=== PATIENT | male | born 1950 | race Caucasian/White ===

== ENCOUNTER 2018-05-08 16:32 | Observation (INO) | payer OTHER ==
[2018-05-08] MEDS ORDERED: ASPIRIN 81 MG PO STA (16:59)
--- NOTE | 2018-05-08 17:01 | ED ---
General Adult HPI - General Chief complaint: Chest Pain Stated complaint: chest pain Time Seen by Provider: 05/08/18 16:44 Source: patient, EMS Mode of arrival: EMS Limitations: no limitations - History of Present Illness Initial comments: Dictation was produced using [employer] dictation software. please excuse any grammatical, word or spelling errors. Chief Complaint: 67-year-old male with past medical history of extensive coronary artery disease presents with chest pain. History of Present Illness: Patient's 67-year-old male presents with chest pain. Patient has history of coronary artery disease. As for coronary artery stents. Patient states he had a squeezing chest pressure which occurred while he was playing with his grandson today. Patient states the pain is intermittent. He states the pain does radiate to his right shoulder area. Denies any diaphoresis nausea. Patient took 3 of his sublingual nitroglycerin with mild improvement of his symptoms. Patient still is having symptoms. They called EMS patient was transferred to the emergency department. Patient denies any numbness and paresthesias to extremities. Patient's dye tub operator Dr. Chang. The ROS documented in this emergency department record has been reviewed and confirmed by me. Those systems with pertinent positive or negative responses have been documented in the HPI. All other systems are other negative and/or noncontributory. PHYSICAL EXAM: General Impression: Alert and oriented x3, not in acute distress HEENT: Normocephalic atraumatic, extra-ocular movements intact, pupils equal and reactive to light bilaterally, mucous membranes moist. Cardiovascular: Heart regular rate and rhythm, S1&S2 audible, no murmurs, rubs or gallops Chest: Lungs clear to auscultation bilaterally, no rhonchi, no wheeze, no rales Abdomen: Bowel sounds present, abdomen soft, non-tender, non-distended, no organomegaly Musculoskeletal: Pulses present and equal in all extremities, no peripheral edema Motor: Power 5/5 bilaterally, no focal deficits noted Neurological: CN II-XII grossly intact, no focal motor or sensory deficits noted Skin: Intact with no visualized rashes Psych: Normal affect and mood ED course: 67-year-old male presents with chest pain. He has extensive history of coronary artery disease. Vital signs upon arrival are within acceptable limits. Laboratory evaluation obtained. CBC unremarkable. Coag panel unremarkable. Metabolic panel unremarkable. His glucose is 69. Patient given some by mouth glucose. Cardiac enzymes negative. Chest x-ray is unremarkable. Patient reevaluated with stable medical condition. Patient started on heparin and given Nitropaste. Given patient's extensive cardiac history and concerning HPI we will have patient admitted for unstable angina. Patient also given aspirin. EKG interpretation: Ventricular rate 55, sinus bradycardia, WV interval 180, QS 76, QTC 4:15. No WV prolongation, no QTC prolongation, no ST or T-wave changes noted. EKG compared to 04/20/2015 showing no changes. Overall, this EKG is unremarkable - Related Data Home Medications Medication Instructions Recorded Confirmed Carvedilol [Coreg] 6.25 mg PO BID 08/02/13 05/08/18 Lisinopril [Zestril] 5 mg PO DAILY 08/02/13 05/08/18 Sertraline HCl [Zoloft] 100 mg PO DAILY 08/02/13 05/08/18 Nitroglycerin Sl Tabs [Nitrostat] 0.4 mg SL Q5M PRN 08/18/13 05/08/18 Atorvastatin [Lipitor] 40 mg PO DAILY 05/08/18 05/08/18 HYDROcodone/APAP 7.5-325MG [[place] 1 tab PO BID PRN 05/08/18 05/08/18 7.5-325] Loperamide [Imodium] 4 mg PO BID PRN 05/08/18 05/08/18 Morphine Sulfate [Sara] 30 mg PO Q12H 05/08/18 05/08/18 Pregabalin [Lyrica] 100 mg PO BID 05/08/18 05/08/18 Allergies Allergy/AdvReac Type Severity Reaction Status Date / Time No Known Allergies Allergy Verified 05/08/18 18:18 Review of Systems ROS Statement: Those systems with pertinent positive or pertinent negative responses have been documented in the HPI. ROS Other: All systems not noted in ROS Statement are negative. Past Medical History Past Medical History: Coronary Artery Disease (CAD), GI Bleed, Hyperlipidemia, Hypertension, Myocardial Infarction ([place]), Osteoarthritis (OA), Prostate Disorder Additional Past Medical History / Comment(s): GI BLEED, ANMEMIA, DJD,BULGING DISCS,ARTHRITIS,CHRONIC BACK PAIN, BLOOD CLOTS, HEMMORROID BANDING DONE ON Last Myocardial Infarction Date:: August 2008 History of Any Multi-Drug Resistant Organisms: None Reported Past Surgical History: Heart Catheterization With Stent, Orthopedic Surgery, Tonsillectomy Additional Past Surgical History / Comment(s): 4 stents, elbow surgery, colonoscopy, EGD, hemmoroidectomy Past Anesthesia/Blood Transfusion Reactions: No Reported Reaction Additional Past Anesthesia/Blood Transfusion Reaction / Comment(s): 10 previous blood transfusions, no problems with infusions. Date of Last Stent Placement:: 2009 Past Psychological History: Anxiety Smoking Status: Former smoker Past Alcohol Use History: Rare Past Drug Use History: None Reported - Past Family History Mother History Unknown: Yes General Exam Limitations: no limitations Course Vital Signs 05/08/18 05/08/18 05/08/18 16:44 17:09 19:02 Temperature 97.8 F Pulse Rate 55 L 54 L 76 Pulse Rate [ 55 L Bilateral Convenience Store Clerk ] Respiratory 18 18 18 Rate Blood Pressure 145/86 145/85 144/78 O2 Sat by Pulse 97 100 Oximetry Medical Decision Making - Lab Data Result diagrams: 05/08/18 17:05 05/08/18 17:05 Lab Results 05/08/18 05/08/18 05/08/18 Range/Units 17:05 17:05 17:05 WBC 6.0 (3.8-10.6) k/uL RBC 4.98 (4.30-5.90) m/uL Hgb 12.9 L (13.0-17.5) gm/dL Hct 39.2 (39.0-53.0) % MCV 78.8 L (80.0-100.0) fL MCH 25.9 (25.0-35.0) pg MCHC 32.9 (31.0-37.0) g/dL RDW 17.3 H (11.5-15.5) % Plt Count 187 (150-450) k/uL Neutrophils % 53 % Lymphocytes % 32 % Monocytes % 6 % Eosinophils % 4 % Basophils % 1 % Neutrophils # 3.2 (1.3-7.7) k/uL Lymphocytes # 1.9 (1.0-4.8) k/uL Monocytes # 0.4 (0-1.0) k/uL Eosinophils # 0.3 (0-0.7) k/uL Basophils # 0.0 (0-0.2) k/uL Anisocytosis Slight Microcytosis Slight PT (9.0-12.0) sec INR (<1.2) APTT (22.0-30.0) sec Sodium 140 (137-145) mmol/L Potassium 4.7 (3.5-5.1) mmol/L Chloride 107 (98-107) mmol/L Carbon Dioxide 28 (22-30) mmol/L Anion Gap 5 mmol/L BUN 14 (9-20) mg/dL Creatinine 0.76 (0.66-1.25) mg/dL Est GFR (CKD-EPI)AfAm >90 (>60 ml/min/1.73 sqM) Est GFR (CKD-EPI)NonAf >90 (>60 ml/min/1.73 sqM) Glucose 69 L (74-99) mg/dL Calcium 9.1 (8.4-10.2) mg/dL Magnesium 2.0 (1.6-2.3) mg/dL Total Bilirubin 0.5 (0.2-1.3) mg/dL AST 33 (17-59) U/L ALT 47 (21-72) U/L Alkaline Phosphatase 52 (38-126) U/L Total Creatine Kinase 112 (55-170) U/L CK-MB (CK-2) 4.8 H (0.0-2.4) ng/mL CK-MB (CK-2) Rel Index 4.3 Troponin I <0.012 (0.000-0.034) ng/mL NT-Pro-B Natriuret Pep pg/mL Total Protein 6.4 (6.3-8.2) g/dL Albumin 3.8 (3.5-5.0) g/dL 05/08/18 05/08/18 Range/Units 17:05 17:05 WBC (3.8-10.6) k/uL RBC (4.30-5.90) m/uL Hgb (13.0-17.5) gm/dL Hct (39.0-53.0) % MCV (80.0-100.0) fL MCH (25.0-35.0) pg MCHC (31.0-37.0) g/dL RDW (11.5-15.5) % Plt Count (150-450) k/uL Neutrophils % % Lymphocytes % % Monocytes % % Eosinophils % % Basophils % % Neutrophils # (1.3-7.7) k/uL Lymphocytes # (1.0-4.8) k/uL Monocytes # (0-1.0) k/uL Eosinophils # (0-0.7) k/uL Basophils # (0-0.2) k/uL Anisocytosis Microcytosis PT 10.3 (9.0-12.0) sec INR 1.0 (<1.2) APTT 22.0 (22.0-30.0) sec Sodium (137-145) mmol/L Potassium (3.5-5.1) mmol/L Chloride (98-107) mmol/L Carbon Dioxide (22-30) mmol/L Anion Gap mmol/L BUN (9-20) mg/dL Creatinine (0.66-1.25) mg/dL Est GFR (CKD-EPI)AfAm (>60 ml/min/1.73 sqM) Est GFR (CKD-EPI)NonAf (>60 ml/min/1.73 sqM) Glucose (74-99) mg/dL Calcium (8.4-10.2) mg/dL Magnesium (1.6-2.3) mg/dL Total Bilirubin (0.2-1.3) mg/dL AST (17-59) U/L ALT (21-72) U/L Alkaline Phosphatase (38-126) U/L Total Creatine Kinase (55-170) U/L CK-MB (CK-2) (0.0-2.4) ng/mL CK-MB (CK-2) Rel Index Troponin I (0.000-0.034) ng/mL NT-Pro-B Natriuret Pep 100 pg/mL Total Protein (6.3-8.2) g/dL Albumin (3.5-5.0) g/dL Disposition Clinical Impression: Unstable angina Disposition: ADMITTED IP TO THIS HOSP Condition: Fair Referrals: [facility],Clinic [Primary Care Provider] - 1-2 days Decision Time: 19:15
[2018-05-08] MEDS ORDERED: NITROGLYCERIN OINT 1 INCH/GM PACKET TOPICAL STA ×2 (17:06→17:42)
[2018-05-08 17:17] LABS: Anisocytosis Slight; Basophils % (A) 1 %; Eosinophils # (A) 0.3 k/uL (0-0.7); Eosinophils % (A) 4 %; HCT 39.2 % (39.0-53.0); HGB 12.9 gm/dL (13.0-17.5); Lymphocytes # (A) 1.9 k/uL (1.0-4.8); Lymphocytes % (A) 32 %; MCH 25.9 pg (25.0-35.0); MCHC 32.9 g/dL (31.0-37.0); MCV 78.8 fL (80.0-100.0); Mean Platelet Volume 7.1; Microcytosis Slight; Monocytes # (A) 0.4 k/uL (0-1.0); Monocytes % (A) 6 %; Neutrophils # (A) 3.2 k/uL (1.3-7.7); Neutrophils % (A) 53 %; Platelet Count 187 k/uL (150-450); RBC 4.98 m/uL (4.30-5.90); RDW 17.3 % (11.5-15.5)
[2018-05-08 17:29] LABS: Prothrombin Time 10.3 sec (9.0-12.0)
[2018-05-08 17:31] LABS: ALT 47 U/L (21-72); AST 33 U/L (17-59); Albumin 3.8 g/dL (3.5-5.0); Alkaline Phosphatase 52 U/L (38-126); Anion Gap 5 mmol/L; Blood Urea Nitrogen 14 mg/dL (9-20); Calcium 9.1 mg/dL (8.4-10.2); Carbon Dioxide 28 mmol/L (22-30); Chloride 107 mmol/L (98-107); Glucose 69 mg/dL (74-99); Potassium 4.7 mmol/L (3.5-5.1); Sodium 140 mmol/L (137-145); Total Bilirubin 0.5 mg/dL (0.2-1.3); Total Protein 6.4 g/dL (6.3-8.2)
[2018-05-08 17:36] LABS: Creatine Kinase 112 U/L (55-170)
[2018-05-08] MEDS ORDERED: HEPARIN SODIUM,PORCINE 5,000 UNIT/ML 1 ML VIAL IV PRN (17:42)
[2018-05-08] MEDS ORDERED: HEPARIN SODIUM,PORCINE 5,000 UNIT/ML 1 ML VIAL IV ONE (17:42)
[2018-05-08] MEDS ORDERED: HEPARIN SOD,PORK IN 0.45% NACL 25,000 UNIT in 0.45% NACL 1 250ML.BAG IV SCH (17:45)
[2018-05-08 17:49] LABS: Creatine Kinase MB 4.8 ng/mL (0.0-2.4); Troponin I <0.012 ng/mL (0.000-0.034)
--- NOTE | 2018-05-08 18:18 | XR ---
EXAMINATION TYPE: XR chest 2V DATE OF EXAM: 05/08/2018 COMPARISON: 04/19/2015 HISTORY: Chest pain TECHNIQUE: Frontal and lateral views of the chest are obtained. FINDINGS: There is no heart failure nor confluent pneumonic infiltrate. There are chest leads. There is small amount of fluid in the right major fissure on the lateral view. The bony thorax is intact. IMPRESSION: There is new small right pleural effusion compared to old exam. No heart failure seen.
[2018-05-08] MEDS ORDERED: HYDROcodone/APAP 10-325MG 1 EACH TAB PO ONE (19:06)
[2018-05-08] MEDS ORDERED: NITROGLYCERIN SL TABS 0.4 MG TAB SUBLINGUAL PRN (19:15)
[2018-05-08 21:42] VITALS: BMI 26.1
[2018-05-08] MEDS ORDERED: LOPERAMIDE 2 MG CAP PO PRN (21:48)
[2018-05-08] MEDS: PREGABALIN 100 MG CAP PO SCH (22:01)
[2018-05-08] MEDS: MORPHINE SULFATE ER 30 MG TABLET PO SCH (22:02)
[2018-05-08] MEDS: CARVEDILOL 6.25 MG TAB PO SCH (22:02)
[2018-05-09 00:31] LABS: Creatine Kinase 91 U/L (55-170)
[2018-05-09 00:44] LABS: Creatine Kinase MB 4.4 ng/mL (0.0-2.4); Troponin I <0.012 ng/mL (0.000-0.034)
[2018-05-09 00:51] LABS: Cholesterol 116 mg/dL (<200); HDL Cholesterol 29 mg/dL (40-60); LDL Cholesterol,Calculated 48 mg/dL (0-99); Triglycerides 193 mg/dL (<150)
[2018-05-09 07:58] LABS: Creatine Kinase 78 U/L (55-170)
[2018-05-09 08:10] LABS: Creatine Kinase MB 3.9 ng/mL (0.0-2.4); Troponin I <0.012 ng/mL (0.000-0.034)
[2018-05-09] MEDS: MORPHINE SULFATE ER 30 MG TABLET PO SCH ×2 (08:55→21:58)
[2018-05-09] MEDS: CARVEDILOL 6.25 MG TAB PO SCH ×2 (08:56→17:16)
[2018-05-09] MEDS: ASPIRIN 325 MG TAB PO SCH (08:56)
[2018-05-09] MEDS: PREGABALIN 100 MG CAP PO SCH ×2 (08:56→20:00)
[2018-05-09] MEDS: HYDROcodone/APAP 7.5-325MG 1 EACH TAB PO PRN (11:16)
--- NOTE | 2018-05-09 11:46 | CONS ---
CONSULTATION Mr. Crabtree is a 67-year-old gentleman who is admitted with chest pains. The patient gives a history that he has been having intermittent exertional chest discomfort which comes and goes. The patient says he was playing with his grandson and he had a pain in the substernal area. The pain was persistent. He took about 3 sublingual nitroglycerin with improvement in the symptoms. The patient did not had any nausea, vomiting or sweating. He called the EMS and the patient was admitted. This patient has a prior history of a stent to the obtuse marginal branch in 2008. Patient has been followed by broadloom weaver at the [facility]. He says he did not have any stress test done recently. The patient has been treated medically patient does not smoke. HOME MEDICATIONS: Include Coreg 6.25 mg b.i.d., Zestril 5 mg daily, Zoloft 100 mg daily, Lipitor 40 mg daily. Imodium, Sara 30 mg b.i.d. and Lyrica. PAST MEDICAL HISTORY: Includes a history of coronary artery disease with a prior history of stent, history of a GI bleeding, history of orthopedic surgery, tonsillectomy, colonoscopy, and elbow surgery and hemorrhoid surgery. SOCIAL HISTORY: Patient is a former smoker. PHYSICAL EXAMINATION: At present, reveals a 67-year-old gentleman who does not appear to be in any acute distress. In the emergency room, patient's vital signs were stable. Blood pressure was 144/78 mmHg, heart rate is 78 per minute. Head ENT and neck examinations are negative. Heart: First and second heart sounds are normal. There is no evidence of any murmur. Lungs are clinically clear to auscultation and percussion. Abdomen is soft. Liver and spleen are not enlarged. Bowel sounds are heard. Extremities: Peripheral pulses are 2+. LABORATORY DATA: The laboratory tests done in the emergency room are normal. Creatinine is 0.76. Troponins are negative. EKG shows normal sinus rhythm without any acute ischemic changes. IMPRESSION: Recurrent episodes of chest pain. There is no definite evidence of myocardial infarction. The patient has a T-wave inversions in V4 to V6 which is unchanged from the EKG done in 2016. The patient is advised further evaluation with a cardiac catheterization. He prefers to have arrangements made at the [facility]. We will try to make arrangements for him to be transferred to the [facility]. Thank you for the consultation. RAJNI / KAREN: [id number] /
--- NOTE | 2018-05-09 12:58 | P.HPIM ---
History of Present Illness This is a pleasant 67 years old male with past medical history of coronary artery disease status post cardiac catheter about 3 years ago showing blockage in one of his arteries about 46% as per patient. Other medical problems include GI bleed, hyperlipidemia, hypertension, chronic back pain,. He presents because of chest pain on the left side and central nonradiating of one- day duration. Patient developed this chest pain within 25 minutes he was going to the emergency room he took 3 tablets of nitro with partial relief and on his way to the hospital the ambulance or EMS people give him 4 doses of nitro which took off his chest pain and since yesterday he does not have any more chest pains. At that time also he had some shortness of breath, however that this resolved to now he is breathing normally. No other symptoms. No dizziness or palpitation. No change in urine or bowel habits. No abdominal pain or nausea and vomiting. Patient has been evaluated by Dr. Brenner pet ambassador, who recommended further evaluation by cardiac cath, however the patient he prefers To be arranged at the [facility] where his pet ambassador Dr. Chang there has been followed up with him for the last 5 years. The [facility] and discharge has been contacted at [phone], and they informed me they have no telemetry beds available. And the plan for him is to monitor him Review of Systems CONSTITUTIONAL: No fever, no malaise, no fatigue. HEENT: No recent visual problems or hearing problems. Denied any sore throat. CARDIOVASCULAR: No orthopnea, PND, no palpitations, no syncope. PULMONARY: No shortness of breath, no cough, no hemoptysis. GASTROINTESTINAL: No diarrhea, no nausea, no vomiting, no abdominal pain. Normoactive bowel sounds. NEUROLOGICAL: No headaches, no weakness, no numbness. HEMATOLOGICAL: Denies any bleeding or petechiae. GENITOURINARY: Denies any burning micturition, frequency, or urgency. MUSCULOSKELETAL/RHEUMATOLOGICAL: Denies any joint pain, swelling, or any muscle pain. ENDOCRINE: Denies any polyuria or polydipsia. Past Medical History Past Medical History: Coronary Artery Disease (CAD), GI Bleed, Hyperlipidemia, Hypertension, Myocardial Infarction ([place]), Osteoarthritis (OA), Prostate Disorder Additional Past Medical History / Comment(s): GI BLEED, ANMEMIA, DJD,BULGING DISCS,ARTHRITIS,CHRONIC BACK PAIN, BLOOD CLOTS, HEMMORROID BANDING DONE ON Last Myocardial Infarction Date:: August 2008 History of Any Multi-Drug Resistant Organisms: None Reported Past Surgical History: Heart Catheterization With Stent, Hernia Repair, Orthopedic Surgery, Prostate Surgery, Tonsillectomy Additional Past Surgical History / Comment(s): 4 stents, elbow surgery, colonoscopy, EGD, hemmoroidectomy, large intestine and colon resection with freq diarrhea Past Anesthesia/Blood Transfusion Reactions: No Reported Reaction Additional Past Anesthesia/Blood Transfusion Reaction / Comment(s): 10 previous blood transfusions, no problems with infusions. Date of Last Stent Placement:: 2009 Past Psychological History: Anxiety Smoking Status: Former smoker Past Alcohol Use History: Rare Past Drug Use History: None Reported Additional Drug Use History / Comment(s): Quit in 2008 after [place] - Past Family History Mother History Unknown: Yes Medications and Allergies Home Medications Medication Instructions Recorded Confirmed Type Carvedilol [Coreg] 6.25 mg PO BID 08/02/13 05/08/18 History Lisinopril [Zestril] 5 mg PO DAILY 08/02/13 05/08/18 History Sertraline HCl [Zoloft] 100 mg PO DAILY 08/02/13 05/08/18 History Nitroglycerin Sl Tabs [Nitrostat] 0.4 mg SL Q5M PRN 08/18/13 05/08/18 History Atorvastatin [Lipitor] 40 mg PO DAILY 05/08/18 05/08/18 History HYDROcodone/APAP 7.5-325MG [[place] 1 tab PO BID PRN 05/08/18 05/08/18 History 7.5-325] Loperamide [Imodium] 4 mg PO BID PRN 05/08/18 05/08/18 History Morphine Sulfate [Sara] 30 mg PO Q12H 05/08/18 05/08/18 History Pregabalin [Lyrica] 100 mg PO BID 05/08/18 05/08/18 History Allergies Allergy/AdvReac Type Severity Reaction Status Date / Time No Known Allergies Allergy Verified 05/08/18 18:18 Physical Exam Vitals: Vital Signs Temp Pulse Pulse Pulse Resp BP BP 05/09/18 12:00 97.7 F 53 L 16 144/86 05/09/18 08:00 97.6 F 61 18 124/76 05/09/18 07:44 05/09/18 04:00 97.8 F 55 L 18 114/75 05/09/18 00:00 97.5 F L 60 18 112/54 05/08/18 23:55 15 05/08/18 20:45 15 05/08/18 20:40 51 L 15 144/78 05/08/18 20:00 97.5 F L 52 L 18 151/78 05/08/18 19:30 56 L 12 144/78 05/08/18 19:02 76 18 144/78 05/08/18 19:00 54 L 18 144/78 05/08/18 17:09 54 L 18 145/85 05/08/18 16:44 97.8 F 55 L 55 L 18 145/86 05/08/18 16:39 20 Pulse Ox 05/09/18 12:00 94 L 05/09/18 08:00 95 05/09/18 07:44 94 L 05/09/18 04:00 91 L 05/09/18 00:00 91 L 05/08/18 23:55 05/08/18 20:45 05/08/18 20:40 05/08/18 20:00 93 L 05/08/18 19:30 05/08/18 19:02 100 05/08/18 19:00 05/08/18 17:09 05/08/18 16:44 97 05/08/18 16:39 Intake and Output 05/08/18 05/09/18 05/09/18 22:59 06:59 14:59 Other: Voiding Method Toilet Toilet Toilet # Voids 2 Weight 78.018 kg GENERAL: The patient is alert and oriented x3, not in any acute distress. Well developed, well nourished. HEENT: Pupils are round and equally reacting to light. EOMI. No scleral icterus. No conjunctival pallor. Normocephalic, atraumatic. No pharyngeal erythema. No thyromegaly. CARDIOVASCULAR: S1 and S2 present. No murmurs, rubs, or gallops. PULMONARY: Chest is clear to auscultation, no wheezing or crackles. ABDOMEN: Soft, nontender, nondistended, normoactive bowel sounds. No palpable organomegaly. MUSCULOSKELETAL: No joint swelling or deformity. EXTREMITIES: No cyanosis, clubbing, or pedal edema. NEUROLOGICAL: Gross neurological examination did not reveal any focal deficits. SKIN: No rashes. Results CBC & Chem 7: 05/08/18 17:05 05/08/18 17:05 Labs: Abnormal Lab Results - Last 24 Hours (Table) 05/08/18 05/08/18 05/08/18 Range/Units 17:05 17:05 17:05 Hgb 12.9 L (13.0-17.5) gm/dL MCV 78.8 L (80.0-100.0) fL RDW 17.3 H (11.5-15.5) % APTT (22.0-30.0) sec Glucose 69 L (74-99) mg/dL CK-MB (CK-2) 4.8 H (0.0-2.4) ng/mL Triglycerides (<150) mg/dL HDL Cholesterol (40-60) mg/dL 05/08/18 05/08/18 05/08/18 Range/Units 17:05 23:57 23:57 Hgb (13.0-17.5) gm/dL MCV (80.0-100.0) fL RDW (11.5-15.5) % APTT 48.9 H (22.0-30.0) sec Glucose (74-99) mg/dL CK-MB (CK-2) 4.4 H (0.0-2.4) ng/mL Triglycerides 193 H (<150) mg/dL HDL Cholesterol 29 L (40-60) mg/dL 05/09/18 05/09/18 Range/Units 06:45 06:45 Hgb (13.0-17.5) gm/dL MCV (80.0-100.0) fL RDW (11.5-15.5) % APTT 43.5 H (22.0-30.0) sec Glucose (74-99) mg/dL CK-MB (CK-2) 3.9 H (0.0-2.4) ng/mL Triglycerides (<150) mg/dL HDL Cholesterol (40-60) mg/dL Thrombosis Risk Factor Assmnt - Choose All That Apply Each Risk Factor Represents 2 Points: Age 61-74 years Thrombosis Risk Factor Assessment Total Risk Factor Score: 2 Thrombosis Risk Factor Assessment Level: Low Risk Assessment and Plan Assessment: Chest pain, rule out cardiac causes History of GI bleed Hyperlipidemia History of essential hypertension History of chronic back pain Plan: This is a pleasant 67 years old male who presents because of the chest pain. He is been evaluated by pet ambassador recommended further distance with cardiac catheterization. Patient prefers to continue [facility]. Labs and medication were reviewed.. Continue same treatment. Continue with symptomatic treatment. Resume home medication. Monitor lytes and vitals. DVT and GI prophylaxis. Further recommendations of the clinical course of the patient DVT prophylaxis: Subcutaneous heparin GI Prophylaxis: Pepcid Prognosis is guarded
[2018-05-09] MEDS: HEPARIN SODIUM,PORCINE 5,000 UNIT/ML 1 ML VIAL SQ SCH ×2 (17:08→20:00)
[2018-05-09] MEDS: FAMOTIDINE 20 MG/2 ML VIAL IV SCH (20:00)
[2018-05-10 03:53] VITALS: TEMP 97.4
[2018-05-10] MEDS: HYDROcodone/APAP 7.5-325MG 1 EACH TAB PO PRN (06:45)
[2018-05-10] MEDS: PREGABALIN 100 MG CAP PO SCH (07:58)
[2018-05-10] MEDS: MORPHINE SULFATE ER 30 MG TABLET PO SCH (07:59)
[2018-05-10] MEDS: FAMOTIDINE 20 MG/2 ML VIAL IV SCH (07:59)
[2018-05-10] MEDS: HEPARIN SODIUM,PORCINE 5,000 UNIT/ML 1 ML VIAL SQ SCH (07:59)
[2018-05-10] MEDS: CARVEDILOL 6.25 MG TAB PO SCH (07:59)
[2018-05-10] MEDS: ASPIRIN 325 MG TAB PO SCH (07:59)
[2018-05-10 08:15] VITALS: RESP 18
[2018-05-10] MEDS ORDERED: ATORVASTATIN 40 MG TAB PO SCH (09:00)
[2018-05-10] MEDS ORDERED: LISINOPRIL 5 MG TAB PO SCH (09:00)
[2018-05-10] MEDS ORDERED: SERTRALINE 100 MG TAB PO SCH (09:00)
[2018-05-10 12:26] VITALS: BP 119/74; PULSE 58
--- NOTE | 2018-05-10 14:37 | ECHOF ---
Referral Reason: MEASUREMENTS -------- HEIGHT: 172.7 cm WEIGHT: 78.0 kg BP: IVSd: 1.1 cm (0.6 - 1.1) LVIDd: 5.5 cm (3.9 - 5.3) LVPWd: 1.1 cm (0.6 - 1.1) EDV(Teich): 150 ml IVSs: 1.5 cm LVIDs: 3.7 cm LVPWs: 1.3 cm ESV(Teich): 58 ml EF(Teich): 62 % %FS: 33 % SV(Teich): 92 ml RVIDd: 3.1 cm (< 3.3) LALs A4C: 4.9 cm LAAs A4C: 12.9 cm LAESV A-L A4C: 29 ml LAESV MOD A4C: 28 ml LALs A2C: 4.8 cm LAAs A2C: 16.4 cm LAESV A-L A2C: 48 ml LAESV MOD A2C: 46 ml LAESV(A-L): 38 ml LAESV Index (A-L): 19.60 ml/m Ao Diam: 3.4 cm (2.0 - 3.7) LA Diam: 2.9 cm (2.7 - 3.8) AV Cusp: 1.6 cm (1.5 - 2.6) MV E Shreyas: 0.64 m/s MV DecT: 349 ms MV Dec [place]: 1.8 m/s MV A Shreyas: 0.98 m/s MV E/A Ratio: 0.66 AV Vmax: 1.26 m/s AV maxP.39 mmHg TR Vmax: 2.62 m/s TR maxP.46 mmHg RAP: 5.00 mmHg RVSP: 32.46 mmHg MV EF SLOPE: 93.33 mm/s (70 - 150) MV EXCURSION: 1.79 cm (> 18.000) FINDINGS -------- Resting bradycardia (HR<60bpm). This was a technically adequate study. The left ventricular size is normal. There is borderline concentric left ventricular hypertrophy. There is normal global left ventricular contractility. Overall left ventricular systolic function is low-normal with, an EF between 50 - 55 %. The right ventricle is normal in size and function. Normal LA size by volume 22+/-6 ml/m2. The right atrium is normal in size. Aortic valve is trileaflet and is mildly thickened. There is no evidence of aortic regurgitation. There is no evidence of aortic stenosis. Mild mitral annular calcification present. There is trace to mild mitral regurgitation. Trace tricuspid regurgitation present. Right ventricular systolic pressure is normal at < 35 mmHg. There is no evidence of pulmonary hypertension. Trace/mild (physiologic) pulmonic regurgitation. The aortic root size is normal. Normal inferior vena cava with normal inspiratory collapse consistent with estimated right atrial pre ssure of 5 mmHg. There is no pericardial effusion. CONCLUSIONS -------- 1. Resting bradycardia (HR<60bpm). 2. This was a technically adequate study. 3. The left ventricular size is normal. 4. There is borderline concentric left ventricular hypertrophy. 5. There is normal global left ventricular contractility. 6. Overall left ventricular systolic function is low-normal with, an EF between 50 - 55 %. 7. Normal LA size by volume 22+/-6 ml/m2. 8. Aortic valve is trileaflet and is mildly thickened. 9. Mild mitral annular calcification present. 10. There is trace to mild mitral regurgitation. 11. Trace tricuspid regurgitation present. 12. Right ventricular systolic pressure is normal at < 35 mmHg. 13. There is no evidence of pulmonary hypertension. 14. Trace/mild (physiologic) pulmonic regurgitation. 15. The aortic root size is normal. 16. There is no pericardial effusion. QUALITY CONTROL CHEMIST: Shane Nesbitt RDCS
[2018-05-10] MEDS ORDERED: FAMOTIDINE 20 MG TAB PO SCH (21:00)
--- NOTE | 2018-05-15 14:59 | P.DS ---
Providers Date of admission: 05/08/18 19:15 Attending physician: Milady Valle Consults: 05/08/18 19:15 Consult Physician Urgent Consulting Provider: Paula Renteria Consult Reason/Comments: unstable angina Do you want consulting provider notified?: Yes Primary care physician: [facility] Course: This is a pleasant 67 years old male with past medical history of coronary artery disease status post cardiac catheter about 3 years ago showing blockage in one of his arteries about 46% as per patient. Other medical problems include GI bleed, hyperlipidemia, hypertension, chronic back pain,. He presents because of chest pain on the left side and central nonradiating of one- day duration. Patient developed this chest pain within 25 minutes he was going to the emergency room he took 3 tablets of nitro with partial relief and on his way to the hospital the ambulance or EMS people give him 4 doses of nitro which took off his chest pain and since yesterday he does not have any more chest pains. At that time also he had some shortness of breath, however that this resolved to now he is breathing normally. No other symptoms. No dizziness or palpitation. No change in urine or bowel habits. No abdominal pain or nausea and vomiting. Patient has been evaluated by Dr. Brenner treating plant pumper, who recommended further evaluation by cardiac cath, however the patient he prefers To be arranged at the [facility] where his treating plant pumper Dr. Chang there has been followed up with him for the last 5 years. The [facility] and discharge has been contacted at [phone], and they informed me they have no telemetry beds available. And the plan for him is to monitor him next day treating plant pumper cleared the pt for discharge, pt himself did not want to be transferred but rather he wanted to be discharged as it was weekend and he told me he will go to see his pcp in one or two day who will refer him to his treating plant pumper at the [facility] on the day of discharge pt remains with no chest pain , no dyspnea , no abd pain or n/v, no change in urine or bowel habits pt told me he is back to his baseline treating plant pumper cleared pt for discharge Pt was instructed about the problems and management plan and Pt verbalized understanding and acceptance Pt is found stable and can be discharged to the community but needs follow up as outpt. pt agrees with appointments and their timing and stated he will follow up Discharge exam Gen.: Patient alert awake and oriented X 3, NOT IN DISTRESS CVS: s1-s2, RRR, no murmur CHEST:bilateral CTA, no wheezing or crepitation Abdomen: Soft, no tenderness, no distention, positive bowel sounds Extremities: No leg edema or induration time spent : more than 35 min Patient Condition at Discharge: Fair Plan - Discharge Summary New Discharge Prescriptions: New Aspirin 325 mg PO DAILY #30 tab Famotidine [Pepcid] 20 mg PO BID #14 tablet Continue Carvedilol [Coreg] 6.25 mg PO BID Lisinopril [Zestril] 5 mg PO DAILY Sertraline HCl [Zoloft] 100 mg PO DAILY Nitroglycerin Sl Tabs [Nitrostat] 0.4 mg SL Q5M PRN PRN Reason: Chest Pain Pregabalin [Lyrica] 100 mg PO BID Morphine Sulfate [Sara] 30 mg PO Q12H Loperamide [Imodium] 4 mg PO BID PRN PRN Reason: Constipation HYDROcodone/APAP 7.5-325MG [[place] 7.5-325] 1 tab PO BID PRN PRN Reason: Breakthrough Pain Atorvastatin [Lipitor] 40 mg PO DAILY Discharge Medication List Carvedilol [Coreg] 6.25 mg PO BID 08/02/13 [History] Lisinopril [Zestril] 5 mg PO DAILY 08/02/13 [History] Sertraline HCl [Zoloft] 100 mg PO DAILY 08/02/13 [History] Nitroglycerin Sl Tabs [Nitrostat] 0.4 mg SL Q5M PRN 08/18/13 [History] Atorvastatin [Lipitor] 40 mg PO DAILY 05/08/18 [History] HYDROcodone/APAP 7.5-325MG [[place] 7.5-325] 1 tab PO BID PRN 05/08/18 [History] Loperamide [Imodium] 4 mg PO BID PRN 05/08/18 [History] Morphine Sulfate [Sara] 30 mg PO Q12H 05/08/18 [History] Pregabalin [Lyrica] 100 mg PO BID 05/08/18 [History] Aspirin 325 mg PO DAILY #30 tab 05/10/18 [Rx] Famotidine [Pepcid] 20 mg PO BID #14 tablet 05/10/18 [Rx] Follow up Appointment(s)/Referral(s): , your treating plant pumper [Other] - 1-2 Days [facility],Clinic [Primary Care Provider] - 1-2 days (with your PALandon ) Activity/Diet/Wound Care/Special Instructions: cardiac diet activity is limited till you see your doctor Discharge Disposition: HOME SELF-CARE
== END 2018-05-10 13:05 | disposition home or self-care (01) ==
LOC: EC 16:32 → SUPCPDRO 16:32 → 1SOBS 19:15
PROVIDERS: ADMIT Hospitalist; ATTEND Hospitalist
DX: R07.89 Other chest pain (principal); R06.02 Shortness of breath; I25.10 Atherosclerotic heart disease of native coronary artery without angina pectoris; E78.5 Hyperlipidemia, unspecified; I10 Essential (primary) hypertension; G89.29 Other chronic pain; M54.9 Dorsalgia, unspecified; N42.9 Disorder of prostate, unspecified; M19.90 Unspecified osteoarthritis, unspecified site; F41.9 Anxiety disorder, unspecified; Z79.891 Long term (current) use of opiate analgesic; Z79.899 Other long term (current) drug therapy; I25.2 Old myocardial infarction; Z87.19 Personal history of other diseases of the digestive system; Z87.891 Personal history of nicotine dependence; Z95.5 Presence of coronary angioplasty implant and graft
CPT/HCPCS: 96366 ×3; 96372 ×2; 96375; 96376 ×2; 96365; 99285; 36415; 94760; 93005; 93306; 83880; 80061; 80053; 82550 ×2; 82553 ×2; 83735; 84484 ×2; 85025; 85610; 85730 ×2; 71046; G0378 ×3; J1644 ×4

== ENCOUNTER 2018-08-18 09:25 | Observation (INO) | payer OTHER ==
[2018-08-18] MEDS ORDERED: SODIUM CHLORIDE 0.9% 500 ML 500 ML IV STA (10:27)
--- NOTE | 2018-08-18 10:45 | ED ---
General Adult HPI - General Chief complaint: Arrhythmia/Palpitations Stated complaint: Not feeling good Time Seen by Provider: 08/18/18 09:38 Source: patient Mode of arrival: ambulatory Limitations: no limitations - History of Present Illness Initial comments: Dictation was produced using [employer] dictation software. please excuse any gr ammatical, word or spelling errors. Chief Complaint: 67-year-old male presents with dizziness and concerns of abnormal blood pressure and heart rate. History of Present Illness: Patient is 67-year-old male he woke up at approximately 2:30 this morning. He states that since waking up he's been feeling dizzy and feeling tired more than usual. Patient wakes up at 3:30 AM frequently to help with his grandchildren. Patient states that spent felt lightheaded worse with moving around. Denies any sensation of room spinning. Patient's been eating and drinking normally. No nausea vomiting diarrhea. Patient has no pain complaints at this time. Patient is on multiple medications for cardiac disease. Patient has myocardial infarction the past. Denies any recent medication changes. The ROS documented in this emergency department record has been reviewed and confirmed by me. Those systems with pertinent positive or negative responses have been documented in the HPI. All other systems are other negative and/or noncontributory. PHYSICAL EXAM: General Impression: Alert and oriented x3, not in acute distress HEENT: Normocephalic atraumatic, extra-ocular movements intact, pupils equal and reactive to light bilaterally, mucous membranes moist. Cardiovascular: Heart regular rate and rhythm, S1&S2 audible, no murmurs, rubs or gallops Chest: Lungs clear to auscultation bilaterally, no rhonchi, no wheeze, no rales Abdomen: Bowel sounds present, abdomen soft, non-tender, non-distended, no organomegaly Musculoskeletal: Pulses present and equal in all extremities, no peripheral edema Motor: no focal deficits noted Neurological: CN II-XII grossly intact, no focal motor or sensory deficits noted Skin: Intact with no visualized rashes Psych: Normal affect and mood ED course: 67-year-old male with a chief complaint of feelings of unwell and dizziness. Vital signs upon arrival are within acceptable limits. Medications reviewed Laboratory evaluation obtained. CBC, coag panel unremarkable. Metabolic panel is negative. Cardiac enzymes negative. Urinalysis negative. Chest x-ray is nonacute. Patient continued to be bradycardic with a heart rate in the 40s. He however has remained no intensive. Patient's clinical presentation consistent with symptomatic bradycardia. This likely secondary to beta davin. Patient be admitted with cardiology consultation for symptomatic bradycardia. Beta blockers cell at this time. EKG interpretation: Ventricular rate 44, sinus bradycardia, TX interval 150, care is 80, QTC 418. No TX prolongation, no QTC prolongation, no ST or T-wave changes noted. EKG compared to 05/08/2018 showing no changes. Overall, this EKG is unremarkable - Related Data Home Medications Medication Instructions Recorded Confirmed Carvedilol [Coreg] 6.25 mg PO BID 08/02/13 08/18/18 Lisinopril [Zestril] 5 mg PO DAILY 08/02/13 08/18/18 Nitroglycerin Sl Tabs [Nitrostat] 0.4 mg SL Q5M PRN 08/18/13 08/18/18 Atorvastatin [Lipitor] 40 mg PO DAILY 05/08/18 08/18/18 Morphine Sulfate [Sara] 30 mg PO Q12H 05/08/18 08/18/18 Pregabalin [Lyrica] 100 mg PO BID 05/08/18 08/18/18 Albuterol Inhaler [Ventolin Hfa 1 puff INHALATION RT-QID PRN 08/18/18 08/18/18 Inhaler] Amitriptyline HCl [Elavil] 25 mg PO HS 08/18/18 08/18/18 Aspirin [[place] Aspirin EC] 81 mg PO DAILY 08/18/18 08/18/18 Baclofen [Lioresal] 20 mg PO BID PRN 08/18/18 08/18/18 Diphenox-Atrop 2.5-0.025 mg 2 tab PO BID PRN 08/18/18 08/18/18 [Lomotil] Docusate [Colace] 100 mg PO BID 08/18/18 08/18/18 HYDROcodone/APAP 10-325MG [[place] 2 tab PO QID PRN 08/18/18 08/18/18 10-325] Loperamide [Imodium] 4 mg PO BID PRN 08/18/18 08/18/18 Naloxone HCl [Narcan] 4 mg INHALATION DAILY PRN 08/18/18 08/18/18 Sertraline [Zoloft] 150 mg PO DAILY 08/18/18 08/18/18 Allergies Allergy/AdvReac Type Severity Reaction Status Date / Time fentanyl Allergy Rash/Hives Verified 08/18/18 10:14 isosorbide Allergy Unknown Verified 08/18/18 10:14 ranolazine Allergy Unknown Verified 08/18/18 10:14 Review of Systems ROS Statement: Those systems with pertinent positive or pertinent negative responses have been documented in the HPI. ROS Other: All systems not noted in ROS Statement are negative. Past Medical History Past Medical History: Coronary Artery Disease (CAD), GI Bleed, Hyperlipidemia, Hypertension, Myocardial Infarction ([place]), Osteoarthritis (OA), Prostate Disorder Additional Past Medical History / Comment(s): GI BLEED, [place], DJD,BULGING DISCS,ARTHRITIS,CHRONIC BACK PAIN, BLOOD CLOTS, HEMMORROID BANDING DONE ON 09/02/13 Last Myocardial Infarction Date:: August 2008 History of Any Multi-Drug Resistant Organisms: None Reported Past Surgical History: Heart Catheterization With Stent, Hernia Repair, Orthopedic Surgery, Prostate Surgery, Tonsillectomy Additional Past Surgical History / Comment(s): 4 stents, elbow surgery, colonoscopy, EGD, hemmoroidectomy, large intestine and colon resection with freq diarrhea Past Anesthesia/Blood Transfusion Reactions: No Reported Reaction Additional Past Anesthesia/Blood Transfusion Reaction / Comment(s): 10 previous blood transfusions, no problems with infusions. Date of Last Stent Placement:: 2009 Past Psychological History: Anxiety Smoking Status: Former smoker Past Alcohol Use History: Rare Past Drug Use History: None Reported - Past Family History Mother History Unknown: Yes General Exam Limitations: no limitations Course Vital Signs 08/18/18 08/18/18 08/18/18 09:33 10:27 11:55 Temperature 97.5 F L 98.2 F Pulse Rate 52 L 45 L Pulse Rate [ 42 L Phototypesetting Equipment Monitor ] Respiratory 16 18 Rate Blood Pressure 165/89 144/85 O2 Sat by Pulse 95 95 Oximetry Medical Decision Making - Lab Data Result diagrams: 08/18/18 10:40 08/18/18 10:40 Lab Results 08/18/18 08/18/18 08/18/18 Range/Units 10:40 10:40 10:40 WBC 5.4 (3.8-10.6) k/uL RBC 4.96 (4.30-5.90) m/uL Hgb 13.5 (13.0-17.5) gm/dL Hct 40.8 (39.0-53.0) % MCV 82.3 (80.0-100.0) fL MCH 27.2 (25.0-35.0) pg MCHC 33.1 (31.0-37.0) g/dL RDW 16.1 H (11.5-15.5) % Plt Count 189 (150-450) k/uL Neutrophils % 55 % Lymphocytes % 30 % Monocytes % 6 % Eosinophils % 4 % Basophils % 1 % Neutrophils # 3.0 (1.3-7.7) k/uL Lymphocytes # 1.6 (1.0-4.8) k/uL Monocytes # 0.3 (0-1.0) k/uL Eosinophils # 0.2 (0-0.7) k/uL Basophils # 0.1 (0-0.2) k/uL Anisocytosis Slight PT 10.5 (9.0-12.0) sec INR 1.0 (<1.2) APTT 21.6 L (22.0-30.0) sec Sodium 140 (137-145) mmol/L Potassium 4.7 (3.5-5.1) mmol/L Chloride 110 H (98-107) mmol/L Carbon Dioxide 25 (22-30) mmol/L Anion Gap 5 mmol/L BUN 13 (9-20) mg/dL Creatinine 0.67 (0.66-1.25) mg/dL Est GFR (CKD-EPI)AfAm >90 (>60 ml/min/1.73 sqM) Est GFR (CKD-EPI)NonAf >90 (>60 ml/min/1.73 sqM) Glucose 97 (74-99) mg/dL Calcium 9.2 (8.4-10.2) mg/dL Magnesium 2.0 (1.6-2.3) mg/dL Total Bilirubin 0.4 (0.2-1.3) mg/dL AST 30 (17-59) U/L ALT 27 (21-72) U/L Alkaline Phosphatase 56 (38-126) U/L Troponin I (0.000-0.034) ng/mL Total Protein 6.4 (6.3-8.2) g/dL Albumin 4.0 (3.5-5.0) g/dL Urine Color Urine Appearance (Clear) Urine pH (5.0-8.0) Ur Specific [place] (1.001-1.035) Urine Protein (Negative) Urine Glucose (UA) (Negative) Urine Ketones (Negative) Urine Blood (Negative) Urine Nitrite (Negative) Urine Bilirubin (Negative) Urine Urobilinogen (<2.0) mg/dL Ur Leukocyte Esterase (Negative) 08/18/18 08/18/18 Range/Units 10:40 11:50 WBC (3.8-10.6) k/uL RBC (4.30-5.90) m/uL Hgb (13.0-17.5) gm/dL Hct (39.0-53.0) % MCV (80.0-100.0) fL MCH (25.0-35.0) pg MCHC (31.0-37.0) g/dL RDW (11.5-15.5) % Plt Count (150-450) k/uL Neutrophils % % Lymphocytes % % Monocytes % % Eosinophils % % Basophils % % Neutrophils # (1.3-7.7) k/uL Lymphocytes # (1.0-4.8) k/uL Monocytes # (0-1.0) k/uL Eosinophils # (0-0.7) k/uL Basophils # (0-0.2) k/uL Anisocytosis PT (9.0-12.0) sec INR (<1.2) APTT (22.0-30.0) sec Sodium (137-145) mmol/L Potassium (3.5-5.1) mmol/L Chloride (98-107) mmol/L Carbon Dioxide (22-30) mmol/L Anion Gap mmol/L BUN (9-20) mg/dL Creatinine (0.66-1.25) mg/dL Est GFR (CKD-EPI)AfAm (>60 ml/min/1.73 sqM) Est GFR (CKD-EPI)NonAf (>60 ml/min/1.73 sqM) Glucose (74-99) mg/dL Calcium (8.4-10.2) mg/dL Magnesium (1.6-2.3) mg/dL Total Bilirubin (0.2-1.3) mg/dL AST (17-59) U/L ALT (21-72) U/L Alkaline Phosphatase (38-126) U/L Troponin I <0.012 (0.000-0.034) ng/mL Total Protein (6.3-8.2) g/dL Albumin (3.5-5.0) g/dL Urine Color Light Yellow Urine Appearance Clear (Clear) Urine pH 6.0 (5.0-8.0) Ur Specific [place] 1.008 (1.001-1.035) Urine Protein Negative (Negative) Urine Glucose (UA) Negative (Negative) Urine Ketones Negative (Negative) Urine Blood Negative (Negative) Urine Nitrite Negative (Negative) Urine Bilirubin Negative (Negative) Urine Urobilinogen <2.0 (<2.0) mg/dL Ur Leukocyte Esterase Negative (Negative) Disposition Clinical Impression: Bradycardia Disposition: ADMITTED IP TO THIS HOSP Condition: Fair Referrals: [facility],Clinic [Primary Care Provider] - 1-2 days Decision Time: 13:08
--- NOTE | 2018-08-18 11:00 | XR ---
EXAMINATION TYPE: XR chest 2V DATE OF EXAM: 08/18/2018 COMPARISON: Chest x-ray May 08, 2018. HISTORY: History of hypertension, heart attack with stent presents with dysrhythmia and palpitations. TECHNIQUE: Frontal and lateral views of the chest are obtained. FINDINGS: There is some chronic parenchymal change without suspicious focal air space opacity, pleur al effusion, or pneumothorax seen. The cardiac silhouette size is stable and within normal limits. Numerous coils from ventral wall hernia repair surgery are partially imaged in the overlying upper a bdomen anteriorly. The osseous structures are intact. Overlying EKG leads are redemonstrated. IMPRESSION: No acute cardiopulmonary process currently.
[2018-08-18 11:11] LABS: Prothrombin Time 10.5 sec (9.0-12.0)
[2018-08-18 11:19] LABS: ALT 27 U/L (21-72); AST 30 U/L (17-59); Alkaline Phosphatase 56 U/L (38-126); Anion Gap 5 mmol/L; Blood Urea Nitrogen 13 mg/dL (9-20); Calcium 9.2 mg/dL (8.4-10.2); Carbon Dioxide 25 mmol/L (22-30); Chloride 110 mmol/L (98-107); Glucose 97 mg/dL (74-99); Potassium 4.7 mmol/L (3.5-5.1); Sodium 140 mmol/L (137-145); Total Bilirubin 0.4 mg/dL (0.2-1.3); Total Protein 6.4 g/dL (6.3-8.2)
[2018-08-18 11:26] LABS: Partial Thromboplastin Time 21.6 sec (22.0-30.0)
[2018-08-18 11:55] LABS: Anisocytosis Slight; Basophils # (A) 0.1 k/uL (0-0.2); Basophils % (A) 1 %; Eosinophils # (A) 0.2 k/uL (0-0.7); Eosinophils % (A) 4 %; HCT 40.8 % (39.0-53.0); HGB 13.5 gm/dL (13.0-17.5); Lymphocytes # (A) 1.6 k/uL (1.0-4.8); Lymphocytes % (A) 30 %; MCH 27.2 pg (25.0-35.0); MCHC 33.1 g/dL (31.0-37.0); MCV 82.3 fL (80.0-100.0); Monocytes # (A) 0.3 k/uL (0-1.0); Monocytes % (A) 6 %; Neutrophils % (A) 55 %; Platelet Count 189 k/uL (150-450); RBC 4.96 m/uL (4.30-5.90); RDW 16.1 % (11.5-15.5); WBC 5.4 k/uL (3.8-10.6)
[2018-08-18 12:12] LABS: Appearance,Urine Clear (Clear); Bilirubin,Urine Negative (Negative); Blood,Urine Negative (Negative); Color,Urine Light Yellow; Glucose,Urine (UA) Negative (Negative); Ketones,Urine Negative (Negative); Leukocyte Esterase,Urine Negative (Negative); Nitrite,Urine Negative (Negative); Protein,Urine Negative (Negative); Specific Gravity,Urine 1.008 (1.001-1.035); Urobilinogen,Urine <2.0 mg/dL (<2.0)
[2018-08-18] MEDS ORDERED: NALOXONE 0.4 MG/ML 1 ML VIAL IV PRN (13:02)
[2018-08-18] MEDS ORDERED: ALBUTEROL NEBULIZED 2.5 MG/3 ML INHALATION PRN (13:06)
[2018-08-18] MEDS ORDERED: ACETAMINOPHEN TAB 325 MG TAB PO PRN (14:37)
[2018-08-18] MEDS: SODIUM CHLORIDE 0.9% 1,000 ML IV SCH (14:57)
[2018-08-18] MEDS ORDERED: NITROGLYCERIN SL TABS 0.4 MG TAB SUBLINGUAL PRN (15:29)
[2018-08-18] MEDS ORDERED: BACLOFEN 10 MG TAB PO PRN (15:29)
[2018-08-18] MEDS ORDERED: DIPHENOX-ATROP 2.5-0.025 MG 1 EACH TAB PO PRN (15:29)
[2018-08-18] MEDS: MORPHINE SULFATE ER 30 MG TABLET PO SCH (15:41)
[2018-08-18] MEDS: DOCUSATE 100 MG CAP PO SCH (19:44)
[2018-08-18] MEDS: PREGABALIN 100 MG CAP PO SCH (19:46)
[2018-08-18] MEDS: AMITRIPTYLINE HCL 25 MG TAB PO SCH (19:46)
[2018-08-18] MEDS: HYDROcodone/APAP 10-325MG 1 EACH TAB PO PRN (22:23)
--- NOTE | 2018-08-18 22:34 | P.HPIM ---
History of Present Illness H&P Date: 08/18/18 Chief Complaint: Dizziness Patient is a 67-year-old male with a known history of coronary artery disease with stents 4, hypertension, hyperlipidemia, history of GI bleed, chronic back pain and degenerative joint disease and other multiple medical problems came to ER with complaints of dizziness, lightheadedness and off balance since 2:30 AM in the morning. Patient woke up in the morning and has been feeling very dizzy and feeling tired and has been having generalized weakness. Dizziness gets worse with moving around. Denied any complaints of chest pain or shortness of breath. Denied headache. Denied any recent illnesses. No cough or sputum production. No nausea vomiting or diarrhea. No abdominal pain. Patient does have a history of IA 3. Patient follows with Dr. Lazaro at [facility] in [place]. Patient does take Coreg at Home. Denied any prior history of bradycardia. Heart rate was 41 on admission. Troponin 1 negative TSH within normal limits EKG showed normal sinus rhythm Chest x-ray showed no acute cardiopulmonary process. UA negative for infection Patient does take [place] 10, morphine extended release tablets, baclofen, amitriptyline and Lyrica at home. Review of Systems Constitutional: Patient denies any fever or chills . No generalized weakness or weight loss. Abdomen: Patient denied nausea vomiting and diarrhea and abdominal pain. Cardiovascular: Patient denies any chest pain or short of breath no palpitations. Respiratory: patient denied any cough is from production. No shortness of breath Neurologic: Patient denied any numbness or tingling headache. Musculoskeletal: Patient denies any complaints of joint swelling or deformity. Skin: Negative Psychiatric: Negative Endocrine: No heat or cold intolerance. No recent weight gain. Genitourinary: No dysuria or hematuria. All other 14 point ROS negative except the above Past Medical History Past Medical History: Coronary Artery Disease (CAD), GI Bleed, Hyperlipidemia, Hypertension, Myocardial Infarction ([place]), Osteoarthritis (OA), Prostate Disorder Additional Past Medical History / Comment(s): GI BLEED, [place], DJD,BULGING DISCS,ARTHRITIS,CHRONIC BACK PAIN, BLOOD CLOTS, HEMMORROID BANDING DONE ON 09/02/13 Last Myocardial Infarction Date:: August 2008 History of Any Multi-Drug Resistant Organisms: None Reported Past Surgical History: Heart Catheterization With Stent, Hernia Repair, Orthopedic Surgery, Prostate Surgery, Tonsillectomy Additional Past Surgical History / Comment(s): 4 stents, elbow surgery, colonoscopy, EGD, hemmoroidectomy, large intestine and colon resection with freq diarrhea Past Anesthesia/Blood Transfusion Reactions: No Reported Reaction Additional Past Anesthesia/Blood Transfusion Reaction / Comment(s): 10 previous blood transfusions, no problems with infusions. Date of Last Stent Placement:: 2009 Past Psychological History: Anxiety Smoking Status: Former smoker Past Alcohol Use History: Rare Past Drug Use History: None Reported - Past Family History Mother History Unknown: Yes Medications and Allergies Home Medications Medication Instructions Recorded Confirmed Type Carvedilol [Coreg] 6.25 mg PO BID 08/02/13 08/18/18 History Lisinopril [Zestril] 5 mg PO DAILY 08/02/13 08/18/18 History Nitroglycerin Sl Tabs [Nitrostat] 0.4 mg SL Q5M PRN 08/18/13 08/18/18 History Atorvastatin [Lipitor] 40 mg PO DAILY 05/08/18 08/18/18 History Morphine Sulfate [Sara] 30 mg PO Q12H 05/08/18 08/18/18 History Pregabalin [Lyrica] 100 mg PO BID 05/08/18 08/18/18 History Albuterol Inhaler [Ventolin Hfa 1 puff INHALATION RT-QID PRN 08/18/18 08/18/18 History Inhaler] Amitriptyline HCl [Elavil] 25 mg PO HS 08/18/18 08/18/18 History Aspirin [[place] Aspirin EC] 81 mg PO DAILY 08/18/18 08/18/18 History Baclofen [Lioresal] 20 mg PO BID PRN 08/18/18 08/18/18 History Diphenox-Atrop 2.5-0.025 mg 2 tab PO BID PRN 08/18/18 08/18/18 History [Lomotil] Docusate [Colace] 100 mg PO BID 08/18/18 08/18/18 History HYDROcodone/APAP 10-325MG [[place] 2 tab PO QID PRN 08/18/18 08/18/18 History 10-325] Loperamide [Imodium] 4 mg PO BID PRN 08/18/18 08/18/18 History Naloxone HCl [Narcan] 4 mg INHALATION DAILY PRN 08/18/18 08/18/18 History Sertraline [Zoloft] 150 mg PO DAILY 08/18/18 08/18/18 History Allergies Allergy/AdvReac Type Severity Reaction Status Date / Time fentanyl Allergy Rash/Hives Verified 08/18/18 10:14 isosorbide Allergy Unknown Verified 08/18/18 10:14 ranolazine Allergy Unknown Verified 08/18/18 10:14 Physical Exam Vitals: Vital Signs Temp Pulse Pulse Resp BP Pulse Ox 08/18/18 14:58 97.6 F 45 L 18 169/87 97 08/18/18 11:55 98.2 F 45 L 18 144/85 95 08/18/18 10:27 42 L 08/18/18 09:33 97.5 F L 52 L 16 165/89 95 Intake and Output 08/18/18 08/18/18 08/18/18 06:59 14:59 22:59 Other: Weight 76.204 kg PHYSICAL EXAMINATION: Patient is lying in the bed comfortably, no acute distress, awake alert and oriented.. HEENT: Normocephalic. Neck is supple. Pupils reactive. Nostrils clear. Oral cavity is moist. Ears reveal no drainage. Neck reveals no JVD, carotid bruits, or thyromegaly. CHEST EXAMINATION: Trachea is central. Symmetrical expansion. Lung kaur clear to auscultation and percussion. CARDIAC: Normal S1, S2 with no gallops. No murmurs ABDOMEN: Soft. Bowel sounds normal. No organomegaly. No abdominal bruits. Extremities: reveal no edema. No clubbing or cyanosis Neurologically awake, alert, oriented x3 with well-coordinated movements. No focal deficits noted Skin: No rash or skin lesions. Psychiatric: Coperative. Nonsuicidal Musculoskeletal: No joint swelling or deformity. Normal range of motion. Results CBC & Chem 7: 08/18/18 10:40 08/18/18 10:40 Labs: Abnormal Lab Results - Last 24 Hours (Table) 08/18/18 08/18/18 08/18/18 Range/Units 10:40 10:40 10:40 RDW 16.1 H (11.5-15.5) % APTT 21.6 L (22.0-30.0) sec Chloride 110 H (98-107) mmol/L Thrombosis Risk Factor Assmnt - DVT/VTE Prophylaxis DVT/VTE Prophylaxis: Pharmacologic Prophylaxis ordered Assessment and Plan Assessment: Symptomatic bradycardia Bradycardia likely due to medications Dizziness and lightheadedness could be multifactorial with narcotic pain medications and bradycardia contributing Coronary artery disease history of multiple stent placement Hypertension Hyperlipidemia Chronic back pain Degenerative disc disease History of GI bleed History of hemorrhoids status post banding surgery History of colon resection with frequent diarrhea. Anxiety Previous history of smoking DVT prophylaxis Plan: Patient be continued on telemetry monitoring. Will hold Coreg at this time. Continue with HOME blood pressure medications. Cardiology was consulted for further evaluation. Infectious workup including chest x-ray and UA negative. Continue with long-acting morphine. Hold [place] 10 at this time. Limit narcotic pain medications. Further recommendations based on the clinical course. Time with Patient: Greater than 30
[2018-08-19] MEDS: HEPARIN SODIUM,PORCINE 5,000 UNIT/ML 1 ML VIAL SQ SCH ×4 (01:39→21:42)
[2018-08-19] MEDS: MORPHINE SULFATE ER 30 MG TABLET PO SCH ×2 (04:09→08:17)
[2018-08-19] MEDS: PREGABALIN 100 MG CAP PO SCH ×2 (08:16→21:42)
[2018-08-19] MEDS: LISINOPRIL 5 MG TAB PO SCH (08:17)
[2018-08-19] MEDS: ASPIRIN 81 MG PO SCH (08:17)
[2018-08-19] MEDS: DOCUSATE 100 MG CAP PO SCH ×2 (08:17→20:22)
[2018-08-19] MEDS: SERTRALINE 100 MG TAB PO SCH (08:17)
[2018-08-19] MEDS: ATORVASTATIN 40 MG TAB PO SCH (08:17)
[2018-08-19] MEDS: HYDROcodone/APAP 10-325MG 1 EACH TAB PO PRN ×3 (08:18→21:42)
--- NOTE | 2018-08-19 08:57 | P.CRDCN ---
History of Present Illness Consult date: 08/19/18 Requesting physician: Dhruv Martinez Reason for Consult (text): Bradycardia Chief complaint: Unsteady History of present illness: This is a 67-year-old gentleman who follows regularly at the [facility] in [place] for his cardiac needs, he sees a Dr. Thomas there. He does have history of coronary artery disease with prior myocardial infarction in 2008 at which time he underwent stenting of the obtuse marginal branch, history also of hypertension, hyperlipidemia, prior history of smoking for which she states she quit in 2008, chronic back pain, emphysema, most recently patient states he underwent a cardiac catheterization in June or July of this year at the [facility] in [place], he also had an echo performed at that time and a CAT scan of the chest. These things were done at that time because the patient is prepared to have back surgery. He presents to the hospital on this occasion with symptoms of unsteadiness and loss of balance. He denies any overt dizziness, no spinning feeling, he has been feeling more tired than usual. Patient denies any recent fever or chills, he has been drinking adequate amounts. Denies any chest discomfort, at times he does feel short of breath but states that this is not unusual for him. Chest x-ray does not reveal any acute cardiopulmonary process. His EKG shows a normal sinus rhythm with a right bundle branch block pattern. Blood pressure 136/70, heart rate in the 50s, 95% on room air. White blood cell count 5.4, hemoglobin 13.5, platelet count 189. Sodium 140, potassium 4.7, BUN 13 and creatinine 0. 67. Troponins are negative times one, TSH is normal. At the time of my examination this morning, patient has no overt complaints, states he just generally feels tired. Urology consultation was requested because of bradycardia. Upon review back as far as 2015, it is noted that the patient consistently has a heart rate in the 50 range. Past Medical History Past Medical History: Coronary Artery Disease (CAD), GI Bleed, Hyperlipidemia, Hypertension, Myocardial Infarction (DC), Osteoarthritis (OA), Prostate Disorder Additional Past Medical History / Comment(s): GI BLEED, ANMEMIA, DJD,BULGING DISCS,ARTHRITIS,CHRONIC BACK PAIN, BLOOD CLOTS, HEMMORROID BANDING DONE ON 6/12/14 Last Myocardial Infarction Date:: August 2008 History of Any Multi-Drug Resistant Organisms: None Reported Past Surgical History: Heart Catheterization With Stent, Hernia Repair, Orthopedic Surgery, Prostate Surgery, Tonsillectomy Additional Past Surgical History / Comment(s): 4 stents, elbow surgery, colonoscopy, EGD, hemmoroidectomy, large intestine and colon resection with freq diarrhea Past Anesthesia/Blood Transfusion Reactions: No Reported Reaction Additional Past Anesthesia/Blood Transfusion Reaction / Comment(s): 10 previous blood transfusions, no problems with infusions. Date of Last Stent Placement:: 2009 Past Psychological History: Anxiety Smoking Status: Former smoker Past Alcohol Use History: Rare Past Drug Use History: None Reported - Past Family History Mother History Unknown: Yes Medications and Allergies Home Medications Medication Instructions Recorded Confirmed Type Carvedilol [Coreg] 6.25 mg PO BID 08/02/13 08/18/18 History Lisinopril [Zestril] 5 mg PO DAILY 08/02/13 08/18/18 History Nitroglycerin Sl Tabs [Nitrostat] 0.4 mg SL Q5M PRN 08/18/13 08/18/18 History Atorvastatin [Lipitor] 40 mg PO DAILY 05/08/18 08/18/18 History Morphine Sulfate [Sara] 30 mg PO Q12H 05/08/18 08/18/18 History Pregabalin [Lyrica] 100 mg PO BID 05/08/18 08/18/18 History Albuterol Inhaler [Ventolin Hfa 1 puff INHALATION RT-QID PRN 08/18/18 08/18/18 History Inhaler] Amitriptyline HCl [Elavil] 25 mg PO HS 08/18/18 08/18/18 History Aspirin [[place] Aspirin EC] 81 mg PO DAILY 08/18/18 08/18/18 History Baclofen [Lioresal] 20 mg PO BID PRN 08/18/18 08/18/18 History Diphenox-Atrop 2.5-0.025 mg 2 tab PO BID PRN 08/18/18 08/18/18 History [Lomotil] Docusate [Colace] 100 mg PO BID 08/18/18 08/18/18 History HYDROcodone/APAP 10-325MG [Matheson 2 tab PO QID PRN 05/28/19 05/28/19 History 10-325] Loperamide [Imodium] 4 mg PO BID PRN 08/18/18 08/18/18 History Naloxone HCl [Narcan] 4 mg INHALATION DAILY PRN 08/18/18 08/18/18 History Sertraline [Zoloft] 150 mg PO DAILY 08/18/18 08/18/18 History Allergies Allergy/AdvReac Type Severity Reaction Status Date / Time fentanyl Allergy Rash/Hives Verified 08/18/18 10:14 isosorbide Allergy Unknown Verified 08/18/18 10:14 ranolazine Allergy Unknown Verified 08/18/18 10:14 Physical Exam Vitals: Vital Signs Temp Pulse Pulse Pulse Resp BP BP 08/19/18 08:12 98.2 F 56 L 20 149/74 08/19/18 04:00 97.9 F 53 L 18 152/81 08/19/18 00:00 55 L 18 116/62 08/18/18 19:54 50 L 18 08/18/18 19:52 97.7 F 50 L 18 136/72 08/18/18 18:00 98 F 51 L 16 145/84 08/18/18 17:47 98.2 F 50 L 18 134/85 08/18/18 14:58 97.6 F 45 L 18 169/87 08/18/18 11:55 98.2 F 45 L 18 144/85 08/18/18 10:27 42 L 08/18/18 09:33 97.5 F L 52 L 16 165/89 Pulse Ox 08/19/18 08:12 95 08/19/18 04:00 98 08/19/18 00:00 98 08/18/18 19:54 08/18/18 19:52 95 08/18/18 18:00 96 08/18/18 17:47 96 08/18/18 14:58 97 08/18/18 11:55 95 08/18/18 10:27 08/18/18 09:33 95 Intake and Output 08/18/18 08/19/18 08/19/18 22:59 06:59 14:59 Intake Total 740 Output Total 700 Balance 740 -700 Intake: IV 500 Sodium Chloride 0.9% 500 500 ml 500 ml @ 999 mls/hr IV .Q31M STA Rx#:[id number] Oral 240 Output: Urine 700 Other: Voiding Method Urinal Urinal # Voids 1 Weight 75.9 kg PHYSICAL EXAMINATION: GENERAL: 67-year-old gentleman in no acute distress at the time of my examination HEENT: Head is atraumatic, normocephalic. Pupils equal, round. Sclera anicteric. Conjunctiva are clear. Mucous membranes of the mouth are moist. Neck is supple. There is no elevated jugular venous pressure. No carotid bruit is heard. HEART EXAMINATION: Heart S1, S2 normal. No murmur or gallop heard. CHEST EXAMINATION: Lungs are clear to auscultation and precussion. No chest wall tenderness is noted on palpation or with deep breathing. ABDOMEN: Soft, nontender. Bowel sounds are heard. No organomegaly noted. EXTREMITIES: 2+ peripheral pulses with no evidence of peripheral edema and no calf tenderness noted. NEUROLOGIC patient is awake, alert and oriented 3 . . Results 08/18/18 10:40 08/18/18 10:40 Cardiac Enzymes 08/18/18 08/18/18 Range/Units 10:40 10:40 AST 30 (17-59) U/L Troponin I <0.012 (0.000-0.034) ng/mL Coagulation 08/18/18 Range/Units 10:40 PT 10.5 (9.0-12.0) sec APTT 21.6 L (22.0-30.0) sec CBC 08/18/18 Range/Units 10:40 WBC 5.4 (3.8-10.6) k/uL RBC 4.96 (4.30-5.90) m/uL Hgb 13.5 (13.0-17.5) gm/dL Hct 40.8 (39.0-53.0) % Plt Count 189 (150-450) k/uL Comprehensive Metabolic Panel 08/18/18 Range/Units 10:40 Sodium 140 (137-145) mmol/L Potassium 4.7 (3.5-5.1) mmol/L Chloride 110 H (98-107) mmol/L Carbon Dioxide 25 (22-30) mmol/L BUN 13 (9-20) mg/dL Creatinine 0.67 (0.66-1.25) mg/dL Glucose 97 (74-99) mg/dL Calcium 9.2 (8.4-10.2) mg/dL AST 30 (17-59) U/L ALT 27 (21-72) U/L Alkaline Phosphatase 56 (38-126) U/L Total Protein 6.4 (6.3-8.2) g/dL Albumin 4.0 (3.5-5.0) g/dL Current Medications Generic Name Dose Route Start Last Admin Trade Name Freq PRN Reason Stop Dose Admin Acetaminophen 650 mg 08/18/18 14:37 08/18/18 14:52 Tylenol Tab PO 650 mg Q6HR PRN Administration Fever and/ or Pain Hydrocodone Bitart/Acetaminophen 2 each 08/18/18 22:13 08/19/18 08:18 Matheson 10 PO 2 each QID PRN Administration Pain Albuterol Sulfate 2.5 mg 08/18/18 13:06 Ventolin Nebulized INHALATION RT-QID PRN Shortness Of Breath Amitriptyline HCl 25 mg 08/18/18 21:00 08/18/18 19:46 Elavil PO 25 mg HS LORRIE Administration Aspirin 81 mg 08/19/18 09:00 08/19/18 08:17 Aspirin PO 81 mg DAILY LORRIE Administration Atorvastatin Calcium 40 mg 08/19/18 09:00 08/19/18 08:17 Lipitor PO 40 mg DAILY LORRIE Administration Baclofen 20 mg 08/18/18 15:29 Lioresal PO BID PRN Spasms Diphenoxylate HCl/Atropine 2 each 08/18/18 15:29 Lomotil PO BID PRN LOOSE STOOLS Docusate Sodium 100 mg 08/18/18 21:00 08/19/18 08:17 Colace PO 100 mg BID LORRIE Administration Heparin Sodium (Porcine) 5,000 unit 08/19/18 00:00 08/19/18 08:18 Heparin SQ 5,000 unit Q8HR LORRIE Administration Sodium Chloride 1,000 mls @ 20 mls/hr 08/18/18 13:15 08/18/18 14:57 Saline 0.9% IV 20 mls/hr .Q24H LORRIE Administration Lisinopril 5 mg 08/19/18 09:00 08/19/18 08:17 Zestril PO 5 mg DAILY LORRIE Administration Morphine Sulfate 30 mg 08/18/18 13:15 08/19/18 08:17 Ms Contin PO Not Given Q12HR LORRIE Naloxone HCl 0.2 mg 08/18/18 13:02 Narcan IV Q2M PRN Opioid Reversal Nitroglycerin 0.4 mg 08/18/18 15:29 Nitrostat SUBLINGUAL Q5M PRN Chest Pain Pregabalin 100 mg 08/18/18 21:00 08/19/18 08:16 Lyrica PO 100 mg BID LORRIE Administration Sertraline HCl 150 mg 08/19/18 09:00 08/19/18 08:17 Zoloft PO 150 mg DAILY LORRIE Administration Intake and Output 08/18/18 08/19/18 08/19/18 22:59 06:59 14:59 Intake Total 740 Output Total 700 Balance 740 -700 Intake: IV 500 Sodium Chloride 0.9% 500 500 ml 500 ml @ 999 mls/hr IV .Q31M STA Rx#:[id number] Oral 240 Output: Urine 700 Other: Voiding Method Urinal Urinal # Voids 1 Weight 75.9 kg Patient Weight 08/20/18 06:59 Weight 75.9 kg 08/18/18 10:40 08/18/18 10:40 EKG Interpretations (text) EKG shows a normal sinus rhythm with a right bundle branch block pattern. Assessment and Plan Plan: Assessment and plan #1 symptoms of tiredness with associated feeling of loss of balance. He denies any dizziness or lightheadedness. EKG shows a sinus rhythm with right bundle branch block pattern, heart rate in the 50s to low 60s. TSH normal #2 intermittent sinus bradycardia with a heart rate of 50, no evidence of pauses #3 known history of coronary artery disease with prior myocardial infarction and stenting of the obtuse marginal in 2008 #4 hypertension #5 hyperlipidemia #6 prior nicotine dependence, patient quit smoking in 2008 #7 chronic back pain, patient is scheduled for an upcoming surgery within the next couple of months Plan Patient just recently had an echocardiogram with Doppler study and heart catheterization performed at the [facility] in [place] in early July or late June, we will get a copy of those and not repeat an echo on this admission. His TSH is normal, we will continue to monitor for any significant bradycardia arrhythmias. Check orthostatics. It does not appear that the patient's bradycardia is contributing to his current symptoms. Further recommendations to follow. DNP note has been reviewed, I agree with a documented findings and plan of care. Patient was seen and examined.
[2018-08-19] MEDS: SODIUM CHLORIDE 0.9% 1,000 ML IV SCH (15:33)
[2018-08-19] MEDS: AMITRIPTYLINE HCL 25 MG TAB PO SCH (21:42)
[2018-08-20] MEDS: MORPHINE SULFATE ER 30 MG TABLET PO SCH (00:53)
[2018-08-20] MEDS ORDERED: HYDROcodone/APAP 5-325MG 1 EACH TAB PO PRN (01:00)
[2018-08-20 01:05] VITALS: RESP 18
--- NOTE | 2018-08-20 01:11 | P.PN ---
Subjective Progress Note Date: 08/19/18 Principal diagnosis: Bradycardia Patient is a 67-year-old male with a known history of coronary artery disease with stents 4, hypertension, hyperlipidemia, history of GI bleed, chronic back pain and degenerative joint disease and other multiple medical problems came to ER with complaints of dizziness, lightheadedness and off balance since 2:30 AM in the morning. Patient woke up in the morning and has been feeling very dizzy and feeling tired and has been having generalized weakness. Dizziness gets worse with moving around. Denied any complaints of chest pain or shortness of breath. Denied headache. Denied any recent illnesses. No cough or sputum production. No nausea vomiting or diarrhea. No abdominal pain. Patient does have a history of NM 3. Patient follows with Dr. Lazaro at [facility] in [place]. Patient does take Coreg at Home. Denied any prior history of bradycardia. Heart rate was 41 on admission. Troponin 1 negative TSH within normal limits EKG showed normal sinus rhythm Chest x-ray showed no acute cardiopulmonary process. UA negative for infection Patient does take Zwolle 10, morphine extended release tablets, baclofen, amitriptyline and Lyrica at home. 2018 Patient denied any complaints of dizziness and headache today. Heart rate is in 50s. Cardiology is following. Awaiting reports from [facility]. No nausea vomiting or diarrhea. No other acute overnight issues. Coreg is on hold. Current medications reviewed. Objective - Vital Signs Vital signs: Vital Signs Temp 97.7 F 08/19/18 16:00 Pulse 54 L 08/19/18 16:00 Resp 20 08/19/18 16:00 BP 150/79 08/19/18 16:00 Pulse Ox 94 L 08/19/18 16:00 Intake & Output 08/19/18 08/19/18 08/20/18 06:59 18:59 06:59 Intake Total 600 Output Total 1400 Balance -800 Weight 75.9 kg Intake: Oral 600 Output: Urine 1400 Other: Voiding Method Urinal # Voids 1 - Exam PHYSICAL EXAMINATION: Patient is lying in the bed comfortably, no acute distress, awake alert and oriented.. HEENT: Normocephalic. Neck is supple. Pupils reactive. Nostrils clear. Oral cavity is moist. Ears reveal no drainage. Neck reveals no JVD, carotid bruits, or thyromegaly. CHEST EXAMINATION: Trachea is central. Symmetrical expansion. Lung kaur clear to auscultation and percussion. CARDIAC: Normal S1, S2 with no gallops. No murmurs ABDOMEN: Soft. Bowel sounds normal. No organomegaly. No abdominal bruits. Extremities: reveal no edema. No clubbing or cyanosis Neurologically awake, alert, oriented x3 with well-coordinated movements. No focal deficits noted Skin: No rash or skin lesions. Psychiatric: Coperative. Nonsuicidal Musculoskeletal: No joint swelling or deformity. Normal range of motion. - Labs CBC & Chem 7: 08/18/18 10:40 08/18/18 10:40 Assessment and Plan Assessment: Symptomatic bradycardia Bradycardia likely due to medications Dizziness and lightheadedness could be multifactorial with narcotic pain medications and bradycardia contributing Coronary artery disease history of multiple stent placement Hypertension Hyperlipidemia Chronic back pain Degenerative disc disease History of GI bleed History of hemorrhoids status post banding surgery History of colon resection with frequent diarrhea. Anxiety Previous history of smoking DVT prophylaxis Plan: Patient be continued on telemetry monitoring. Will hold Coreg at this time. Continue with HOME blood pressure medications. Cardiology was consulted for further evaluation. Infectious workup including chest x-ray and UA negative. Will hold narcotic pain medications. Further recommendations based on the clinical course. Time with Patient: Greater than 30
[2018-08-20] MEDS: HYDROcodone/APAP 10-325MG 1 EACH TAB PO PRN (06:39)
[2018-08-20 06:40] LABS: Basophils % (A) 1 %; Eosinophils # (A) 0.1 k/uL (0-0.7); Eosinophils % (A) 2 %; HGB 13.8 gm/dL (13.0-17.5); Lymphocytes # (A) 1.5 k/uL (1.0-4.8); Lymphocytes % (A) 24 %; MCH 26.5 pg (25.0-35.0); MCHC 31.4 g/dL (31.0-37.0); MCV 84.3 fL (80.0-100.0); Mean Platelet Volume 6.9; Monocytes # (A) 0.3 k/uL (0-1.0); Monocytes % (A) 5 %; Neutrophils % (A) 65 %; Platelet Count 185 k/uL (150-450); RBC 5.21 m/uL (4.30-5.90); WBC 6.2 k/uL (3.8-10.6)
[2018-08-20 06:54] LABS: Anion Gap 5 mmol/L; Blood Urea Nitrogen 17 mg/dL (9-20); Carbon Dioxide 26 mmol/L (22-30); Chloride 107 mmol/L (98-107); Glucose 97 mg/dL (74-99); Potassium 4.8 mmol/L (3.5-5.1); Sodium 138 mmol/L (137-145)
[2018-08-20] MEDS: ATORVASTATIN 40 MG TAB PO SCH (09:13)
[2018-08-20] MEDS: LISINOPRIL 5 MG TAB PO SCH (09:13)
[2018-08-20] MEDS: ASPIRIN 81 MG PO SCH (09:13)
[2018-08-20] MEDS: SERTRALINE 100 MG TAB PO SCH (09:13)
[2018-08-20] MEDS: PREGABALIN 100 MG CAP PO SCH (09:13)
[2018-08-20] MEDS: HEPARIN SODIUM,PORCINE 5,000 UNIT/ML 1 ML VIAL SQ SCH (09:13)
[2018-08-20] MEDS: DOCUSATE 100 MG CAP PO SCH (09:17)
[2018-08-20 10:54] VITALS: TEMP 96.8
[2018-08-20] MEDS: SODIUM CHLORIDE 0.9% 1,000 ML IV SCH (12:58)
--- NOTE | 2018-08-20 13:27 | PN ---
PROGRESS NOTE This patient was seen in hospital consultation yesterday for bradycardia from which patient was asymptomatic. Patient's vital signs over the last 24 hours reviewed. No significant bradyarrhythmias are noted. Patient's heart rate remains in the range of 50 to 60 beats per minute. Blood pressure is 110/70 mmHg. First and second heart sounds are normal. Lungs are clinically clear to auscultation and percussion. We would recommend to continue the patient on current medications and patient can be discharged home from cardiac point of view. MMODL / IJN: [id number] /
[2018-08-20 14:51] VITALS: BP 120/66; PULSE 57
== END 2018-08-20 15:09 | disposition home or self-care (01) ==
LOC: EC 09:25 → 3SCARD 13:02
PROVIDERS: ADMIT Internal Medicine; ATTEND Internal Medicine
DX: R00.1 Bradycardia, unspecified (principal); I25.10 Atherosclerotic heart disease of native coronary artery without angina pectoris; I10 Essential (primary) hypertension; J43.9 Emphysema, unspecified; I45.10 Unspecified right bundle-branch block; E78.5 Hyperlipidemia, unspecified; N42.9 Disorder of prostate, unspecified; G89.29 Other chronic pain; M54.9 Dorsalgia, unspecified; M19.90 Unspecified osteoarthritis, unspecified site; R19.7 Diarrhea, unspecified; F41.9 Anxiety disorder, unspecified; Z79.891 Long term (current) use of opiate analgesic; Z79.82 Long term (current) use of aspirin; Z79.899 Other long term (current) drug therapy; Z88.5 Allergy status to narcotic agent; Z88.8 Allergy status to other drugs, medicaments and biological substances; Z95.5 Presence of coronary angioplasty implant and graft; I25.2 Old myocardial infarction; Z87.891 Personal history of nicotine dependence; Z90.49 Acquired absence of other specified parts of digestive tract; Z87.19 Personal history of other diseases of the digestive system
CPT/HCPCS: 96372 ×2; 96360; 99285; 36415; 93005; 80053; 80048; 84443; 83735; 84484; 85025 ×2; 85610; 85730; 81003; 71046; G0378 ×3; J1644 ×2

== ENCOUNTER 2020-04-26 20:14 | Observation (INO) | payer OTHER ==
[2020-04-26] MEDS ORDERED: SODIUM CHLORIDE 0.9% 1,000 ML IV STA (20:56)
--- NOTE | 2020-04-26 21:12 | ED ---
Seizure HPI - General Chief Complaint: Seizure Stated Complaint: Seizure Time Seen by Provider: 04/26/20 20:26 Source: patient, family, EMS Mode of arrival: EMS Limitations: altered mental status - History of Present Illness Initial Comments: 69-year-old male presents to the emergency department with a chief complaint of a seizure. is also present in the room to answer additional questions. patient brought to the ED via EMS. states the patient was sitting on the bed and was complaining of a headache when he stood up and went to the bathroom. He states she noticed a lot of noise in the bathroom and went to evaluate the situation. She states the patient had a seizure that initially started with stiff arms and eventually turn into full on tonic-clonic seizure.she states the patient was approximately having a seizure for 35 minutes with a post ictal state. She reports the patient had one previous seizure that occurred 4 years ago and he supposedly suffered a myocardial infarction at the same time. He had cardiac stenting. This was all done in [place]. Patient reports a headache that has been ongoing for the past 4 days but denies any photosensitivity or nausea or vomiting. He does have history of chronic back pain and takes narcotics for it. denies any neck stiffness. - Related Data Home Medications Medication Instructions Recorded Confirmed lisinopriL [Zestril] 5 mg PO DAILY 08/02/13 08/18/18 Nitroglycerin Sl Tabs [Nitrostat] 0.4 mg SL Q5M PRN 08/18/13 08/18/18 Atorvastatin [Lipitor] 40 mg PO DAILY 05/08/18 08/18/18 Morphine Sulfate [Sara] 30 mg PO Q12H 05/08/18 08/18/18 Pregabalin [Lyrica] 100 mg PO BID 05/08/18 08/18/18 Albuterol Inhaler (Mhu) [Ventolin 1 puff INHALATION RT-QID PRN 08/18/18 08/18/18 Hfa Inhaler (Mhu)] Amitriptyline HCl [Elavil] 25 mg PO HS 08/18/18 08/18/18 Aspirin [[place] Aspirin EC] 81 mg PO DAILY 08/18/18 08/18/18 Baclofen [Lioresal] 20 mg PO BID PRN 08/18/18 08/18/18 Diphenox-Atrop 2.5-0.025 mg 2 tab PO BID PRN 08/18/18 08/18/18 [Lomotil] Docusate [Colace] 100 mg PO BID 08/18/18 08/18/18 HYDROcodone/APAP 10-325MG [[place] 2 tab PO QID PRN 08/18/18 08/18/18 10-325] Naloxone HCl [Narcan] 4 mg INHALATION DAILY PRN 08/18/18 08/18/18 Sertraline [Zoloft] 150 mg PO DAILY 08/18/18 08/18/18 Allergies Allergy/AdvReac Type Severity Reaction Status Date / Time fentanyl Allergy Rash/Hives Verified 04/26/20 20:31 isosorbide Allergy Unknown Verified 04/26/20 20:31 ranolazine Allergy Unknown Verified 04/26/20 20:31 Review of Systems ROS Statement: Those systems with pertinent positive or pertinent negative responses have been documented in the HPI. ROS Other: All systems not noted in ROS Statement are negative. Past Medical History Past Medical History: Coronary Artery Disease (CAD), GI Bleed, Hyperlipidemia, Hypertension, Myocardial Infarction (IA), Osteoarthritis (OA), Prostate Disorder Additional Past Medical History / Comment(s): GI BLEED, ANMEMIA, DJD,BULGING DISCS,ARTHRITIS,CHRONIC BACK PAIN, BLOOD CLOTS, HEMMORROID BANDING DONE ON 09/02/13 Last Myocardial Infarction Date:: August 2008 History of Any Multi-Drug Resistant Organisms: None Reported Past Surgical History: Heart Catheterization With Stent, Hernia Repair, Orthopedic Surgery, Prostate Surgery, Tonsillectomy Additional Past Surgical History / Comment(s): 4 stents, elbow surgery, colonoscopy, EGD, hemmoroidectomy, large intestine and colon resection with freq diarrhea Past Anesthesia/Blood Transfusion Reactions: No Reported Reaction Additional Past Anesthesia/Blood Transfusion Reaction / Comment(s): 10 previous blood transfusions, no problems with infusions. Date of Last Stent Placement:: 2009 Past Psychological History: Anxiety Smoking Status: Former smoker Past Alcohol Use History: Daily Past Drug Use History: Marijuana - Past Family History Mother History Unknown: Yes General Exam Limitations: altered mental status General appearance: alert, in no apparent distress Head exam: Present: atraumatic, normocephalic, normal inspection Eye exam: Present: normal appearance, PERRL, EOMI Pupils: Present: normal accommodation ENT exam: Present: normal exam, normal oropharynx, mucous membranes moist, TM's normal bilaterally, normal external ear exam Neck exam: Present: normal inspection, full ROM. Absent: tenderness Respiratory exam: Present: normal lung sounds bilaterally. Absent: respiratory distress, wheezes, rales, rhonchi, stridor Cardiovascular Exam: Present: regular rate, normal rhythm, normal heart sounds GI/Abdominal exam: Present: soft. Absent: distended, tenderness, guarding, rebound, rigid Extremities exam: Present: normal inspection, full ROM, normal capillary refill, pedal edema (+1 pitting edema bilaterally). Absent: tenderness, joint swelling, calf tenderness Back exam: Present: normal inspection, full ROM, tenderness, paraspinal tenderness, vertebral tenderness. Absent: CVA tenderness (R), CVA tenderness (L) Neurological exam: Present: alert, oriented X3 Psychiatric exam: Present: normal affect, normal mood Skin exam: Present: warm, dry, intact, normal color Course Vital Signs 04/26/20 04/26/20 04/26/20 20:28 21:00 22:00 Temperature 98.3 F Pulse Rate 81 65 69 Respiratory 20 20 17 Rate Blood Pressure 137/94 130/83 142/92 O2 Sat by Pulse 95 90 L 96 Oximetry Medical Decision Making - Medical Decision Making 69-year-old male presents to the emergency department with a chief complaint of seizure. On physical examination, patient is resting comfortably and only complaining of a headache at this time. He is alert and oriented 4. Patient was given IV fluids. CBC unremarkable. CMP reveals lactic acid of 11.5 with anion gap of 21.low carbon dioxide of 15 likely to compensate. Magnesium of 2.5. EKG changes reviewed with slight ST elevation in V2. Troponin 0.015. CBC unremarkable. CT of brain shows no acute processes. Chest x-ray is unremarkable. Patient given 1 L bolus fluids. serial troponins. Repeat lactic acid pending. Patient will be started on 500 mg of Keppra. He will be admitted for further medical management.case discussed with Dr. Bryant. Admitting physician is Dr. drake Cardiology consulted Neurology consulted - Lab Data Result diagrams: 04/26/20 20:59 04/26/20 20:59 Lab Results 02/03/21 02/03/21 02/03/21 Range/Units 20:59 20:59 21:11 WBC 8.9 (3.8-10.6) k/uL RBC 5.16 (4.30-5.90) m/uL Hgb 15.1 (13.0-17.5) gm/dL Hct 46.2 (39.0-53.0) % MCV 89.6 (80.0-100.0) fL MCH 29.3 (25.0-35.0) pg MCHC 32.8 (31.0-37.0) g/dL RDW 13.9 (11.5-15.5) % Plt Count 204 (150-450) k/uL MPV 6.9 Neutrophils % 65 % Lymphocytes % 27 % Monocytes % 4 % Eosinophils % 1 % Basophils % 1 % Neutrophils # 5.8 (1.3-7.7) k/uL Lymphocytes # 2.4 (1.0-4.8) k/uL Monocytes # 0.3 (0-1.0) k/uL Eosinophils # 0.1 (0-0.7) k/uL Basophils # 0.1 (0-0.2) k/uL Sodium 137 (137-145) mmol/L Potassium 3.8 (3.5-5.1) mmol/L Chloride 101 (98-107) mmol/L Carbon Dioxide 15 L (22-30) mmol/L Anion Gap 21 mmol/L BUN 17 (9-20) mg/dL Creatinine 1.40 H (0.66-1.25) mg/dL Est GFR (CKD-EPI)AfAm 60 (>60 ml/min/1.73 sqM) Est GFR (CKD-EPI)NonAf 52 (>60 ml/min/1.73 sqM) Glucose 137 H (74-99) mg/dL POC Glucose (mg/dL) (75-99) mg/dL POC Glu Broommaking Supervisor ID Plasma Lactic Acid Bert 11.6 H* (0.7-2.0) mmol/L Calcium 9.0 (8.4-10.2) mg/dL Magnesium 2.5 H (1.6-2.3) mg/dL Total Bilirubin 0.3 (0.2-1.3) mg/dL AST 48 (17-59) U/L ALT 44 (4-49) U/L Alkaline Phosphatase 50 (38-126) U/L Troponin I (0.000-0.034) ng/mL Total Protein 7.0 (6.3-8.2) g/dL Albumin 4.4 (3.5-5.0) g/dL 04/26/20 04/26/20 Range/Units 21:11 21:18 WBC (3.8-10.6) k/uL RBC (4.30-5.90) m/uL Hgb (13.0-17.5) gm/dL Hct (39.0-53.0) % MCV (80.0-100.0) fL MCH (25.0-35.0) pg MCHC (31.0-37.0) g/dL RDW (11.5-15.5) % Plt Count (150-450) k/uL MPV Neutrophils % % Lymphocytes % % Monocytes % % Eosinophils % % Basophils % % Neutrophils # (1.3-7.7) k/uL Lymphocytes # (1.0-4.8) k/uL Monocytes # (0-1.0) k/uL Eosinophils # (0-0.7) k/uL Basophils # (0-0.2) k/uL Sodium (137-145) mmol/L Potassium (3.5-5.1) mmol/L Chloride (98-107) mmol/L Carbon Dioxide (22-30) mmol/L Anion Gap mmol/L BUN (9-20) mg/dL Creatinine (0.66-1.25) mg/dL Est GFR (CKD-EPI)AfAm (>60 ml/min/1.73 sqM) Est GFR (CKD-EPI)NonAf (>60 ml/min/1.73 sqM) Glucose (74-99) mg/dL POC Glucose (mg/dL) 107 H (75-99) mg/dL POC Glu Broommaking Supervisor ID Plasma Lactic Acid Bert (0.7-2.0) mmol/L Calcium (8.4-10.2) mg/dL Magnesium (1.6-2.3) mg/dL Total Bilirubin (0.2-1.3) mg/dL AST (17-59) U/L ALT (4-49) U/L Alkaline Phosphatase (38-126) U/L Troponin I 0.015 (0.000-0.034) ng/mL Total Protein (6.3-8.2) g/dL Albumin (3.5-5.0) g/dL - EKG Data EKG Comments: sinus rhythm Ventricular rate 71, NJ 166, QRS 70, QTC 469. Disposition Clinical Impression: Hypermagnesemia, New onset seizure Disposition: ADMITTED IP TO THIS HOSP Condition: Fair Is patient prescribed a controlled substance at d/c from ED?: No Referrals: [facility],Clinic [Primary Care Provider] - 1-2 days Time of Disposition: 22:48
[2020-04-26 21:15] LABS: Albumin 4.4 g/dL (3.5-5.0); Magnesium 2.5 mg/dL (1.6-2.3); Potassium 3.8 mmol/L (3.5-5.1); Total Bilirubin 0.3 mg/dL (0.2-1.3)
[2020-04-26 21:20] LABS: Glucose,Whole Blood 107 mg/dL (75-99)
[2020-04-26 21:35] LABS: Basophils # (A) 0.1 k/uL (0-0.2); Basophils % (A) 1 %; Eosinophils # (A) 0.1 k/uL (0-0.7); Eosinophils % (A) 1 %; HCT 46.2 % (39.0-53.0); HGB 15.1 gm/dL (13.0-17.5); Lymphocytes # (A) 2.4 k/uL (1.0-4.8); Lymphocytes % (A) 27 %; MCH 29.3 pg (25.0-35.0); MCHC 32.8 g/dL (31.0-37.0); MCV 89.6 fL (80.0-100.0); Mean Platelet Volume 6.9; Monocytes # (A) 0.3 k/uL (0-1.0); Monocytes % (A) 4 %; Neutrophils # (A) 5.8 k/uL (1.3-7.7); Neutrophils % (A) 65 %; Platelet Count 204 k/uL (150-450); RBC 5.16 m/uL (4.30-5.90); RDW 13.9 % (11.5-15.5); WBC 8.9 k/uL (3.8-10.6)
--- NOTE | 2020-04-26 21:51 | CT ---
EXAMINATION TYPE: CT brain cspine wo con DATE OF EXAM: 04/26/2020 COMPARISON: None HISTORY: RANDOLPH, seizure CT DLP: 1413.9 mGycm Automated exposure control for dose reduction was used. There is mild cerebral atrophy. There is no mass effect nor midline shift. There is no sign of intrac ranial hemorrhage. The calvarium is intact. There is no evidence of cerebral edema. Cervical vertebra have normal alignment. There is some degenerative mild disc space narrowing at C5-6 and C6-7. Facet joints are intact. Prevertebral soft tissues are intact. IMPRESSION: Negative CT scan of the brain. Negative CT scan of the cervical spine. Minor degenerative disc changes in the lower cervical spine.
--- NOTE | 2020-04-26 21:53 | XR ---
EXAMINATION TYPE: XR chest 2V DATE OF EXAM: 04/26/2020 COMPARISON: 08/18/2018 HISTORY: Dysrhythmia There is some thickening of the right major fissure. Heart is normal. Lungs are clear of consolidati on. There are no hilar masses. There is no pleural effusion. IMPRESSION: There is chronic thickening of the right major fissure unchanged compared to old exam. Th is is consistent with scarring. No acute lung disease.
[2020-04-26] MEDS ORDERED: ACETAMINOPHEN TAB 500 MG TAB PO STA (22:15)
[2020-04-26] MEDS ORDERED: LORazepam 2 MG/ML INJ IV PRN ×2 (22:34→22:45)
[2020-04-26] MEDS ORDERED: NALOXONE 0.4 MG/ML 1 ML VIAL IV PRN (22:45)
[2020-04-26] MEDS ORDERED: traMADol 50 MG TAB PO PRN (22:45)
[2020-04-26] MEDS ORDERED: ONDANSETRON 4 MG/2 ML VIAL IVP PRN (22:45)
[2020-04-26] MEDS ORDERED: MORPHINE SULFATE 4 MG/ML SYRINGE IV PRN (22:45)
[2020-04-26] MEDS ORDERED: levETIRAcetam IV 500 MG in SODIUM CHLORIDE 0.9% 100 ML IVPB ONE (23:00)
[2020-04-26] MEDS: SODIUM CHLORIDE 0.9% 1,000 ML IV SCH (23:10)
[2020-04-27] MEDS ORDERED: ASPIRIN 81 MG PO STA (02:23)
[2020-04-27] MEDS ORDERED: ATORVASTATIN 20 MG TAB PO STA (02:23)
[2020-04-27] MEDS ORDERED: hydroCHLOROthiazide 12.5 MG CAP PO STA (02:24)
[2020-04-27 05:45] LABS: Cholesterol 172 mg/dL (<200); HDL Cholesterol 52 mg/dL (40-60); LDL Cholesterol,Calculated 100 mg/dL (0-99); Triglycerides 99 mg/dL (<150)
[2020-04-27] MEDS: HYDROcodone/APAP 5-325MG 1 EACH TAB PO PRN ×2 (06:28→18:21)
[2020-04-27] MEDS ORDERED: PANTOPRAZOLE 40 MG TABLET PO SCH (08:30)
[2020-04-27] MEDS: PANTOPRAZOLE 40 MG TABLET PO SCH (09:22)
[2020-04-27] MEDS: levETIRAcetam 500 MG TAB PO SCH ×2 (09:22→23:32)
[2020-04-27] MEDS: SERTRALINE 50 MG TAB PO SCH (09:22)
[2020-04-27] MEDS: lisinopriL 10 MG TAB PO SCH (09:22)
[2020-04-27] MEDS ORDERED: levETIRAcetam IV 1,000 MG in SALINE 1 100ML.BAG IVPB STA (09:26)
--- NOTE | 2020-04-27 09:26 | P.HPIM ---
History of Present Illness Patient presents 69-year-old male came in with complaints of seizure patient was noted to have tonic clonic activity lasted for a few minutes followed by loss of consciousness and postictal state for about half an hour. Patient denied any loss of bowel or bladder incontinence and denied any tongue biting. Patient episode preceded with the severe headache denied any nausea vomiting. No other or symptoms. Patient denied any fever chills dysuria nausea vomiting. Patient had a CT of the head and spine cervical spine which is significant for mild degenerative disease of the cervical vertebrae. Patient denied any history of m igraine. Patient denied any weakness. Patient had a seizure in 2017 that was after he was septic and was told secondary to the antibiotics he was receiving. Patient was not on any seizure medications. Patient denied any chest pain had mildly elevated troponin of 0.5 and 0.674 EKGs did not show any significant abnormality patient has anion gap metabolic acidosis probably secondary to lactic acidosis from a seizures. Patient also had acute renal failure with creatinine going up to 1.4. Patient does take Motrin occasionally for pain. Review of Systems REVIEW OF SYSTEMS: CONSTITUTIONAL: No fever, no malaise, no fatigue. HEENT: No recent visual problems or hearing problems. Denied any sore throat. CARDIOVASCULAR: No chest pain, orthopnea, PND, no palpitations, no syncope. PULMONARY: No shortness of breath, no cough, no hemoptysis. GASTROINTESTINAL: No diarrhea, no nausea, no vomiting, no abdominal pain. NEUROLOGICAL: no weakness, no numbness. HEMATOLOGICAL: Denies any bleeding or petechiae. GENITOURINARY: Denies any burning micturition, frequency, or urgency. MUSCULOSKELETAL/RHEUMATOLOGICAL: Denies any joint pain, swelling, or any muscle pain. ENDOCRINE: Denies any polyuria or polydipsia. The rest of the 14-point review of systems is negative. Past Medical History Past Medical History: Coronary Artery Disease (CAD), GI Bleed, Hyperlipidemia, Hypertension, Myocardial Infarction ([place]), Osteoarthritis (OA), Prostate Disorder Additional Past Medical History / Comment(s): GI BLEED, ANMEMIA, DJD,BULGING DISCS,ARTHRITIS,CHRONIC BACK PAIN, BLOOD CLOTS, HEMMORROID BANDING DONE ON 09/02/13 Last Myocardial Infarction Date:: August 2008 History of Any Multi-Drug Resistant Organisms: None Reported Past Surgical History: Heart Catheterization With Stent, Hernia Repair, Orthopedic Surgery, Prostate Surgery, Tonsillectomy Additional Past Surgical History / Comment(s): 4 stents, elbow surgery, colonoscopy, EGD, hemmoroidectomy, large intestine and colon resection with freq diarrhea Past Anesthesia/Blood Transfusion Reactions: No Reported Reaction Additional Past Anesthesia/Blood Transfusion Reaction / Comment(s): 10 previous blood transfusions, no problems with infusions. Date of Last Stent Placement:: 2009 Smoking Status: Former smoker - Past Family History Mother History Unknown: Yes Additional Family Medical History / Comment(s): Mother does not discuss health hx. She is 89yrs old. Father Family Medical History: Hearing Disorder / Deafness Additional Family Medical History / Comment(s): Father is deaf. He is 92 yrs old. Medications and Allergies Home Medications Medication Instructions Recorded Confirmed Type Nitroglycerin Sl Tabs [Nitrostat] 0.4 mg SL Q5M PRN 08/18/13 04/26/20 History Aspirin [[place] Aspirin EC] 81 mg PO DAILY 08/18/18 04/26/20 History Baclofen [Lioresal] 20 mg PO BID PRN 08/18/18 04/26/20 History HYDROcodone/APAP 10-325MG [[place] 2 tab PO QID PRN 08/18/18 04/26/20 History 10-325] Sertraline [Zoloft] 150 mg PO DAILY 08/18/18 04/26/20 History Albuterol Sulfate [Albuterol 1 puff PO QID PRN 04/26/20 04/26/20 History Sulfate Hfa] Atorvastatin Calcium [Lipitor] 40 mg PO HS 04/26/20 04/26/20 History Ibuprofen [Motrin] 600 mg PO TID PRN 04/26/20 04/26/20 History Lidocaine 5% Patch [Lidoderm] 1 patch TOPICAL DAILY 04/26/20 04/26/20 History Omeprazole 20 mg PO DAILY 04/26/20 04/26/20 History hydroCHLOROthiazide [Hydrodiuril] 12.5 mg PO DAILY 04/26/20 04/26/20 History lisinopriL [Zestril] 10 mg PO BID 04/26/20 04/26/20 History Allergies Allergy/AdvReac Type Severity Reaction Status Date / Time fentanyl Allergy Rash/Hives Verified 04/26/20 23:21 isosorbide Allergy Unknown Verified 04/26/20 23:21 ranolazine Allergy Unknown Verified 04/26/20 23:21 Physical Exam Vitals: Vital Signs Temp Pulse Resp BP Pulse Ox 04/27/20 08:33 62 16 137/89 99 04/27/20 06:29 60 19 137/87 99 04/27/20 02:17 79 18 149/93 95 04/27/20 00:00 67 18 144/93 95 04/26/20 23:00 75 20 150/98 99 04/26/20 22:00 69 17 142/92 96 04/26/20 21:00 65 20 130/83 90 L 04/26/20 20:28 98.3 F 81 20 137/94 95 Intake and Output 04/26/20 04/27/20 04/27/20 22:59 06:59 14:59 Intake Total 480 Output Total 900 Balance -420 Intake: Oral 480 Output: Urine 900 Other: Weight 71.214 kg 71.214 kg PHYSICAL EXAMINATION: GENERAL: The patient is alert and oriented x3, not in any acute distress. Well developed, well nourished. HEENT: Pupils are round and equally reacting to light. EOMI. No scleral icterus. No conjunctival pallor. Normocephalic, atraumatic. No pharyngeal erythema. No thyromegaly. CARDIOVASCULAR: S1 and S2 present. No murmurs, rubs, or gallops. PULMONARY: Chest is clear to auscultation, no wheezing or crackles. ABDOMEN: Soft, nontender, nondistended, normoactive bowel sounds. No palpable organomegaly. MUSCULOSKELETAL: No joint swelling or deformity. EXTREMITIES: No cyanosis, clubbing, or pedal edema. NEUROLOGICAL: Gross neurological examination did not reveal any focal deficits. SKIN: No rashes. Results CBC & Chem 7: 04/26/20 20:59 04/26/20 20:59 Labs: Abnormal Lab Results - Last 24 Hours (Table) 04/26/20 04/26/20 04/26/20 Range/Units 00:16 20:59 21:11 Carbon Dioxide 15 L (22-30) mmol/L Creatinine 1.40 H (0.66-1.25) mg/dL Glucose 137 H (74-99) mg/dL POC Glucose (mg/dL) (75-99) mg/dL Plasma Lactic Acid Bert 11.6 H* (0.7-2.0) mmol/L Magnesium 2.5 H (1.6-2.3) mg/dL Troponin I 0.548 H* (0.000-0.034) ng/mL LDL Cholesterol, Calc (0-99) mg/dL 04/26/20 04/26/20 04/27/20 Range/Units 21:18 22:51 03:12 Carbon Dioxide (22-30) mmol/L Creatinine (0.66-1.25) mg/dL Glucose (74-99) mg/dL POC Glucose (mg/dL) 107 H (75-99) mg/dL Plasma Lactic Acid Bert 2.1 H* (0.7-2.0) mmol/L Magnesium (1.6-2.3) mg/dL Troponin I 0.674 H* (0.000-0.034) ng/mL LDL Cholesterol, Calc (0-99) mg/dL 04/27/20 Range/Units 03:12 Carbon Dioxide (22-30) mmol/L Creatinine (0.66-1.25) mg/dL Glucose (74-99) mg/dL POC Glucose (mg/dL) (75-99) mg/dL Plasma Lactic Acid Bert (0.7-2.0) mmol/L Magnesium (1.6-2.3) mg/dL Troponin I (0.000-0.034) ng/mL LDL Cholesterol, Calc 100 H (0-99) mg/dL Thrombosis Risk Factor Assmnt - Choose All That Apply Any of the Below Risk Factors Present?: Yes Other Risk Factors: Yes Each Risk Factor Represents 2 Points: Age 61-74 years, Malignancy Other congenital or acquired thrombophilia - If yes, enter type in comment: No Thrombosis Risk Factor Assessment Total Risk Factor Score: 4 Thrombosis Risk Factor Assessment Level: Moderate Risk Assessment and Plan Plan: -New-onset seizures: Patient will go EEG patient was started on Keppra and as needed Ativan with seizure precautions. Further workup with MRI which may be needed as per neurology. Tramadol will be discontinued although patient doesn't use tramadol at home. -Acute renal failure pedal azotemia patient will be continued on IV fluids hold off on HIDA chlorothiazide lisinopril although will be continued unless his kidney function doesn't improve by tomorrow -anion gap and ACIDOSIS secondary to lactic acidosis from a seizures. -Hyperlipidemia -Hypertension -coronary artery disease -elevated troponin secondary to renal failure and seizure patient doesn't have any chest pain or use significant EKG changes although really will evaluated the patient -History of prostate cancer on no hormonal therapy which will be continued DVT prophylaxis with subcutaneous heparin
--- NOTE | 2020-04-27 09:41 | P.CNNES ---
History of Present Illness Consult date: 04/27/20 Requesting physician: Joes Ryan Reason for Consult: seizure History of Present Illness: This is a 69-year-old gentleman with a previous episode of seizure, chronic lower back pain, coronary artery disease status post stent, hyperlipidemia, hypertension, myocardial infarction, osteoarthritis that presented to the emergency department the EMS on the 04/26/2020 and an episode of seizure. Some of the history is obtained from medical records since patient could not tell me all details. The accompanied the patient upon the patient presenting to the hospital and that she stated that the patient was complaining of a headache on 04/26/2020 and to the bathroom. All of a sudden the heard the noise coming from the bathroom. She went and the the patient had an stiffness of the arm and then went into tonic-clonic seizure. This was an also post ictal state afterwards. Entire episode with postictal state lasted for 35 minutes. With the patient he had a headache that was severe over the frontal region and it happened yesterday at nighttime and he felt like there is photophobia and felt nauseous but denies phonophobia or vomiting. Denies any ringing in the ears or hearing loss over indoor any focal deficit. He remembers going to the bathroom and then he doesn't remember what happened after that. He said that he was told by his that he had a seizure. He denies any tongue bite, any urinary or bowel incontinence. Currently the patient is back to baseline. He denies any fevers, any change in medications, any recent sickness lately. She is not on any antiepileptic drugs. He does acknowledge that he drinks whiskey about 3-4 shots a day and he has been doing that for the last 6 month. He denies any stopping any recently and his last drink was yesterday at. He said he has been drinking the result of being home because of the covert 19 pandemic. He did acknowledge that in 2017 he had a similar seizure episode. He stated that the this happened and while he was at [place] and the what transpired was that he had the an enlargement of his prostate and as a result he had TURP. As a result of the surgery he had infection as he had enlargement of his testicles as well as infection in his abdomen which resulted in having the colostomy and then he was started on antibiotics and was discharged home and then again he had the as stated above he had a similar seizure episode as described above. He did have a workup of an EEG and an MRI of the brain and [place] and he does not know the results of them. He was not started on medication since he was told that his seizure was due to the the antibiotic that was that he was on that and a provoked seizure. Patient's history is normal, he was at the normal gestation, there is no complication and no childhood seizure. Besides the seizure yesterday and the seizure in 2017 he never had any seizures. There is no family history of seizures. Workup in the hospital consisted of: Upon presented to the hospital the patient's blood pressure was 137/94 with a heart rate of 81, respiratory of 20, temperature of 98.3 Fahrenheit oral pulse ox of 95% room air. CT of the head is reported as negative CT scan of the brain. CT of the cervical spine is reported as negative CT scan of the cervical spine. Minor degenerative disc changes in the lower cervical spine. EKG is reported as normal sinus rhythm. Possible inferior infarct, age undetermined. ST and T-wave abnormality, consider lateral ischemia. Patient's white blood cells 8.9 which is normal. Creatinine is 1.4 on presentation serum glucose is 137. The plasma lactic vein is 11.6 which is elevated. Troponin is 0.548. The patient was given Keppra 500 mg one time in the ED. Review of Systems Review of system: The 12 point system was reviewed and apparent positive and negative per HPI. Past Medical History Past Medical History: Coronary Artery Disease (CAD), GI Bleed, Hyperlipidemia, Hypertension, Myocardial Infarction ([place]), Osteoarthritis (OA), Prostate Disorder Additional Past Medical History / Comment(s): GI BLEED, ANMEMIA, DJD,BULGING DISCS,ARTHRITIS,CHRONIC BACK PAIN, BLOOD CLOTS, HEMMORROID BANDING DONE ON 09/02/13 Last Myocardial Infarction Date:: August 2008 History of Any Multi-Drug Resistant Organisms: None Reported Past Surgical History: Heart Catheterization With Stent, Hernia Repair, Orthopedic Surgery, Prostate Surgery, Tonsillectomy Additional Past Surgical History / Comment(s): 4 stents, elbow surgery, colonoscopy, EGD, hemmoroidectomy, large intestine and colon resection with freq diarrhea Past Anesthesia/Blood Transfusion Reactions: No Reported Reaction Additional Past Anesthesia/Blood Transfusion Reaction / Comment(s): 10 previous blood transfusions, no problems with infusions. Date of Last Stent Placement:: 2009 Past Psychological History: Anxiety Smoking Status: Former smoker Past Alcohol Use History: Daily Past Drug Use History: Marijuana - Past Family History Mother History Unknown: Yes Father Family Medical History: Hearing Disorder / Deafness Additional Family Medical History / Comment(s): Father is deaf. He is 92 yrs old. Medications and Allergies Home Medications Medication Instructions Recorded Confirmed Type Nitroglycerin Sl Tabs [Nitrostat] 0.4 mg SL Q5M PRN 08/18/13 04/26/20 History Aspirin [[place] Aspirin EC] 81 mg PO DAILY 08/18/18 04/26/20 History Baclofen [Lioresal] 20 mg PO BID PRN 08/18/18 04/26/20 History HYDROcodone/APAP 10-325MG [[place] 2 tab PO QID PRN 08/18/18 04/26/20 History 10-325] Sertraline [Zoloft] 150 mg PO DAILY 08/18/18 04/26/20 History Albuterol Sulfate [Albuterol 1 puff PO QID PRN 04/26/20 04/26/20 History Sulfate Hfa] Atorvastatin Calcium [Lipitor] 40 mg PO HS 04/26/20 04/26/20 History Ibuprofen [Motrin] 600 mg PO TID PRN 04/26/20 04/26/20 History Lidocaine 5% Patch [Lidoderm] 1 patch TOPICAL DAILY 04/26/20 04/26/20 History Omeprazole 20 mg PO DAILY 04/26/20 04/26/20 History hydroCHLOROthiazide [Hydrodiuril] 12.5 mg PO DAILY 04/26/20 04/26/20 History lisinopriL [Zestril] 10 mg PO BID 04/26/20 04/26/20 History Allergies Allergy/AdvReac Type Severity Reaction Status Date / Time fentanyl Allergy Rash/Hives Verified 04/26/20 23:21 isosorbide Allergy Unknown Verified 04/26/20 23:21 ranolazine Allergy Unknown Verified 04/26/20 23:21 Physical Examination - Vital Signs Vital Signs: Vital Signs Temp Pulse Resp BP Pulse Ox 04/27/20 06:29 60 19 137/87 99 04/27/20 02:17 79 18 149/93 95 04/27/20 00:00 67 18 144/93 95 04/26/20 23:00 75 20 150/98 99 04/26/20 22:00 69 17 142/92 96 04/26/20 21:00 65 20 130/83 90 L 04/26/20 20:28 98.3 F 81 20 137/94 95 Intake and Output 04/26/20 04/27/20 04/27/20 22:59 06:59 14:59 Intake Total 480 Output Total 900 Balance -420 Intake: Oral 480 Output: Urine 900 Other: Weight 71.214 kg GENERAL: The patient is lying in bed and is not in acute distress. CHEST: The heart rate is regular rate rhythm. No murmurs to auscultation. LUNG: Clear to auscultation bilaterally no wheezing noted throughout. Not labored breathing. ABDOMEN/GI: Bowel sounds present in all 4 quadrants. No tenderness to palpation throughout. NEUROLOGICAL: Higher mental function: The patient is awake, alert, oriented to self, place and time. Patient is following commands. No aphasia and no neglect. Cranial nerves: The pupils are round, equal and reactive to light and accommodation. Visual kaur are full to confrontation throughout. Extraocular movement is intact no nystagmus is noted. Facial sensation is normal to touch throughout. The facial strength is normal throughout. Hearing is normal bilaterally to hand rub. Tongue is midline and moved [id number] without any difficulty. No dysarthria is noted. Shoulder shrug is normal bilaterally. Motor: The strength is 5 over 5 throughout. Normal tone and bulk. Cerebellum: Normal finger to nose bilaterally. Sensation: Sensation is normal to touch throughout. Reflexes (right/left): 2+ throughout bilateral upper extremities and 1+ throughout lowers. Plantars are downgoing bilaterally. Results Sodium is 137 which is normal. AST is 48 and ALT of 44. Calcium is 9.0 which is considered normal. Magnesium is 2.5. Lipid panel is triglycerides 99, cholesterol of 172, LDL of 100 and HDL 52. [place] virus PCR is nondetected. - Laboratory Findings CBC and BMP: 04/26/20 20:59 04/26/20 20:59 Abnormal Lab Findings: Abnormal Labs 04/26/20 04/26/20 04/26/20 00:16 20:59 21:11 Carbon Dioxide 15 L Creatinine 1.40 H Glucose 137 H POC Glucose (mg/dL) Plasma Lactic Acid Bert 11.6 H* Magnesium 2.5 H Troponin I 0.548 H* LDL Cholesterol, Calc 04/26/20 04/26/20 04/27/20 21:18 22:51 03:12 Carbon Dioxide Creatinine Glucose POC Glucose (mg/dL) 107 H Plasma Lactic Acid Bert 2.1 H* Magnesium Troponin I 0.674 H* LDL Cholesterol, Calc 04/27/20 03:12 Carbon Dioxide Creatinine Glucose POC Glucose (mg/dL) Plasma Lactic Acid Bert Magnesium Troponin I LDL Cholesterol, Calc 100 H Assessment and Plan Assessment: This is 69-year-old gentleman with a previous episode of seizure about 4 years ago that presents to mergency department the EMS on the 04/26/2020 and an episode of seizure. Patient is on any seizure medication. Newly diagnosed Seizure (Seizure episode on 04/26/2020 and one in 2017). Chronic lower back pain Elevated troponin Hyperlipidemia Hypertension Myocardial infarction History of coronary artery disease status post stent History of alcohol use (drinks wisky 3-4 shots per day for past 6 months). Plan: I started the patient on the Keppra 500 mg 1 tablet twice a day. I loaded the patient with Keppra 1 g right now since yesterday he received a very small dose to make sure enough of the Keppra is in his body. I ordered an EEG. We'll get MRI of the brain with and without seizure protocol I ordered MRA head. I ordered Vitamin B12 and folate level I placed the patient on thiamine 100mg daily. He is currently on no seizure precaution Patient is on 1 mg of Ativan every 4 hours as needed for anxiety as well as 0.5 mg every 6 hours for anxiety. Please avoid Ativan if not needed. Guarding the elevated troponin and cardiology is consulted and we'll defer the medical to them. Patient has significant cardiac factor. Not sure if elevated troponin is cardiac in etiology or reactive from seizure but will defer the cardiac management to cardiology team. The patient was notified that according to the [facility] that the patient cannot drive for 6 month until seizure-free. He is to avoid the [place], swimming unassisted and avoid any heavy machinery. He was counseled on alcohol cessation. We'll defer the rest of the medical management to the primary team. Thank you for the consultation Roe Godinez MD Neuro-Hospitalist Time with Patient: Greater than 30
[2020-04-27] MEDS: oxyCODONE-APAP 5-325MG 1 EACH TAB PO PRN ×2 (11:42→16:31)
--- NOTE | 2020-04-27 12:42 | ECHOF ---
Referral Reason:LV function MEASUREMENTS -------- HEIGHT: 175.3 cm WEIGHT: 71.2 kg BP: 137/89 RVIDd: 2.8 cm (< 3.3) IVSd: 1.4 cm (0.6 - 1.1) LVIDd: 5.1 cm (3.9 - 5.3) LVPWd: 1.4 cm (0.6 - 1.1) IVSs: 1.9 cm LVIDs: 3.8 cm LVPWs: 1.7 cm LA Diam: 3.4 cm (2.7 - 3.8) LAESV Index (A-L): 26.29 ml/m Ao Diam: 4.0 cm (2.0 - 3.7) AV Cusp: 1.9 cm (1.5 - 2.6) MV EXCURSION: 10.412 mm (> 18.000) MV EF SLOPE: 21 mm/s (70 - 150) EPSS: 1.1 cm MV E Shreyas: 0.59 m/s MV DecT: 360 ms MV A Shreyas: 0.96 m/s MV E/A Ratio: 0.61 FINDINGS -------- Sinus rhythm. This was a technically difficult study with suboptimal views. The left ventricular size is normal. There is moderate concentric left ventricular hypertrophy. O verall left ventricular systolic function is mild-moderately impaired with, an EF between 40 - 45 %. Apical anterior LV wall motion is hypokinetic. Apical lateral LV wall motion is hypokinetic. Apical inferior LV wall motion is hypokinetic. Apical septum LV wall motion is hypokinetic. The right ventricle is normal in size. Normal LA size by volume 22+/-6 ml/m2. The right atrium is normal in size. 5.0mg of Lumason was utilized for enhancement of images Interatrial and interventricular septum intact. The aortic valve is trileaflet and appears structurally normal. The mitral valve is normal. The tricuspid valve appears structurally normal. The pulmonic valve was not well visualized. The aortic root is dilated measuring 4.0cm. Normal inferior vena cava with normal inspiratory collapse consistent with estimated right atrial pre ssure of 5 mmHg. There is no pericardial effusion. CONCLUSIONS -------- 1. The left ventricular size is normal. 2. There is moderate concentric left ventricular hypertrophy. 3. Overall left ventricular systolic function is mild-moderately impaired with, an EF between 40 - 45 %. 4. Apical anterior LV wall motion is hypokinetic. 5. Apical lateral LV wall motion is hypokinetic. 6. Apical inferior LV wall motion is hypokinetic. 7. Apical septum LV wall motion is hypokinetic. 8. 5.0mg of Lumason was utilized for enhancement of images 9. There is no pericardial effusion. DECONTAMINATION WORKER: Aylin Rey RDCS
[2020-04-27] MEDS: THIAMINE 100 MG TAB PO SCH (12:44)
--- NOTE | 2020-04-27 13:59 | P.CRDCN ---
History of Present Illness History of present illness: CHIEF COMPLAINT: New onset seizure, EKG changes, elevated troponin HISTORY OF PRESENT ILLNESS: This is a 69-year-old male with a past medical hist ory significant for coronary artery disease with previous stenting of the obtuse marginal branch, hypertension, hyperlipidemia, and former nicotine dependence. Patient follows with Dr. Chang at the [facility] in [place]. We have been asked to see the patient in consultation for EKG changes and elevated troponins. Patient currently admitted to the hospital secondary to new onset seizure. Patient denies any chest pain or pressure. Denies shortness of breath. Denies dizziness or lightheadedness. DIAGNOSTICS: EKG reveals sinus mechanism with T-wave inversions, similar to previous EKG Chest xray chronic thickening of the right major fissure unchanged compared to old exam. Laboratory data: WBC 8.9. Hemoglobin 15.1. Platelet count 204. Sodium 137. Potassium 3.8. BUN 17. Creatinine 1.40. Magnesium 2.5. Troponin 0.015. 0.548. 0.674. Current home cardiac medications include lisinopril 10 mg twice a day, HCTZ 12.5 mg daily, Lipitor 40 mg daily, and aspirin 81 mg daily REVIEW OF SYSTEMS: At the time of my exam: CONSTITUTIONAL: Denies fever or chills. HEENT: Denies blurred vision, vision changes, or eye pain. Denies hemoptysis CARDIOVASCULAR: Denies chest pain, orthopnea, PND or palpitations RESPIRATORY: No shortness of breath. GASTROINTESTINAL: Denies abdominal pain. Denies nausea or vomiting. HEMATOLOGIC: Denies bleeding disorders. GENITOURINARY: Denies any blood in urine. SKIN: Denies pruitis. Denies rash. PHYSICAL EXAM: VITAL SIGNS: Reviewed. GENERAL: Well-developed in no acute distress. HEENT: Head is normocephalic. Pupils are equal, round. Sclerae anicteric. Mucous membranes of the mouth are moist. Neck supple. No JVD or thyromegaly LUNGS: Respirations even and unlabored. Lungs essentially clear to auscultation bilaterally. HEART: Regular rate and rhythm. S1 and S2 heard. ABDOMEN: Soft. Nondistended. Nontender. EXTREMITIES: Normal range of motion. No clubbing or cyanosis. Peripheral pulse s intact. No lower extremity edema NEUROLOGIC: Awake and alert. Oriented x 3. ASSESSMENT: New onset seizure Acute kidney injury Abnormal troponins, likely secondary to acute kidney injury, no evidence of ACS Coronary artery disease with previous PCI of the obtuse marginal branch Hypertension Hyperlipidemia PLAN: An acute coronary event has been ruled out Obtain 2D echo to assess cardiac structure and function Check CK level Patient is currently stable from a cardiac standpoint Further recommendations pending patient course Nurse practitioner note has been reviewed by physician. Signing provider agrees with the documented findings, assessment, and plan of care. Past Medical History Past Medical History: Coronary Artery Disease (CAD), GI Bleed, Hyperlipidemia, Hypertension, Myocardial Infarction (NE), Osteoarthritis (OA), Prostate Disorder Additional Past Medical History / Comment(s): GI BLEED, ANMEMIA, DJD,BULGING DISCS,ARTHRITIS,CHRONIC BACK PAIN, BLOOD CLOTS, HEMMORROID BANDING DONE ON 09/02/13 Last Myocardial Infarction Date:: August 2008 History of Any Multi-Drug Resistant Organisms: None Reported Past Surgical History: Heart Catheterization With Stent, Hernia Repair, Orthopedic Surgery, Prostate Surgery, Tonsillectomy Additional Past Surgical History / Comment(s): 4 stents, elbow surgery, colonoscopy, EGD, hemmoroidectomy, large intestine and colon resection with freq diarrhea Past Anesthesia/Blood Transfusion Reactions: No Reported Reaction Additional Past Anesthesia/Blood Transfusion Reaction / Comment(s): 10 previous blood transfusions, no problems with infusions. Date of Last Stent Placement:: 2009 Past Psychological History: Anxiety Smoking Status: Former smoker Past Alcohol Use History: Daily Past Drug Use History: Marijuana - Past Family History Mother History Unknown: Yes Additional Family Medical History / Comment(s): Mother does not discuss health hx. She is 89yrs old. Father Family Medical History: Hearing Disorder / Deafness Additional Family Medical History / Comment(s): Father is deaf. He is 92 yrs old. Medications and Allergies Home Medications Medication Instructions Recorded Confirmed Type Nitroglycerin Sl Tabs [Nitrostat] 0.4 mg SL Q5M PRN 08/18/13 04/26/20 History Aspirin [[place] Aspirin EC] 81 mg PO DAILY 08/18/18 04/26/20 History Baclofen [Lioresal] 20 mg PO BID PRN 08/18/18 04/26/20 History HYDROcodone/APAP 10-325MG [[place] 2 tab PO QID PRN 08/18/18 04/26/20 History 10-325] Sertraline [Zoloft] 150 mg PO DAILY 08/18/18 04/26/20 History Albuterol Sulfate [Albuterol 1 puff PO QID PRN 04/26/20 04/26/20 History Sulfate Hfa] Atorvastatin Calcium [Lipitor] 40 mg PO HS 04/26/20 04/26/20 History Ibuprofen [Motrin] 600 mg PO TID PRN 04/26/20 04/26/20 History Lidocaine 5% Patch [Lidoderm] 1 patch TOPICAL DAILY 04/26/20 04/26/20 History Omeprazole 20 mg PO DAILY 04/26/20 04/26/20 History hydroCHLOROthiazide [Hydrodiuril] 12.5 mg PO DAILY 04/26/20 04/26/20 History lisinopriL [Zestril] 10 mg PO BID 04/26/20 04/26/20 History Allergies Allergy/AdvReac Type Severity Reaction Status Date / Time fentanyl Allergy Rash/Hives Verified 04/26/20 23:21 isosorbide Allergy Unknown Verified 04/26/20 23:21 ranolazine Allergy Unknown Verified 04/26/20 23:21 Physical Exam Vitals: Vital Signs Temp Pulse Resp BP Pulse Ox 04/27/20 08:33 62 16 137/89 99 04/27/20 06:29 60 19 137/87 99 04/27/20 02:17 79 18 149/93 95 04/27/20 00:00 67 18 144/93 95 04/26/20 23:00 75 20 150/98 99 04/26/20 22:00 69 17 142/92 96 04/26/20 21:00 65 20 130/83 90 L 04/26/20 20:28 98.3 F 81 20 137/94 95 Intake and Output 04/26/20 04/27/20 04/27/20 22:59 06:59 14:59 Intake Total 480 Output Total 900 Balance -420 Intake: Oral 480 Output: Urine 900 Other: Weight 71.214 kg 71.214 kg Results 04/26/20 20:59 04/26/20 20:59 Cardiac Enzymes 04/26/20 04/26/20 04/26/20 Range/Units 00:16 20:59 21:11 AST 48 (17-59) U/L Troponin I 0.548 H* 0.015 (0.000-0.034) ng/mL 04/27/20 Range/Units 03:12 AST (17-59) U/L Troponin I 0.674 H* (0.000-0.034) ng/mL Lipids 04/27/20 Range/Units 03:12 Triglycerides 99 (<150) mg/dL Cholesterol 172 (<200) mg/dL HDL Cholesterol 52 (40-60) mg/dL CBC 04/26/20 Range/Units 20:59 WBC 8.9 (3.8-10.6) k/uL RBC 5.16 (4.30-5.90) m/uL Hgb 15.1 (13.0-17.5) gm/dL Hct 46.2 (39.0-53.0) % Plt Count 204 (150-450) k/uL Comprehensive Metabolic Panel 04/26/20 Range/Units 20:59 Sodium 137 (137-145) mmol/L Potassium 3.8 (3.5-5.1) mmol/L Chloride 101 (98-107) mmol/L Carbon Dioxide 15 L (22-30) mmol/L BUN 17 (9-20) mg/dL Creatinine 1.40 H (0.66-1.25) mg/dL Glucose 137 H (74-99) mg/dL Calcium 9.0 (8.4-10.2) mg/dL AST 48 (17-59) U/L ALT 44 (4-49) U/L Alkaline Phosphatase 50 (38-126) U/L Total Protein 7.0 (6.3-8.2) g/dL Albumin 4.4 (3.5-5.0) g/dL Current Medications Generic Name Dose Route Start Last Admin Trade Name Freq PRN Reason Stop Dose Admin Hydrocodone Bitart/Acetaminophen 1 each 04/26/20 22:45 04/27/20 06:28 Hydrocodone/Apap 5-325mg 1 Each Tab PO 1 each Q4HR PRN Administration Moderate Pain Atorvastatin Calcium 40 mg 04/27/20 21:00 Atorvastatin 40 Mg Tab PO HS LORRIE Heparin Sodium (Porcine) 5,000 unit 04/27/20 16:00 Heparin Sodium,Porcine 5,000 Unit/Ml 1 Ml Vial SQ Q8HR LORRIE Sodium Chloride 1,000 mls @ 100 mls/hr 04/26/20 22:45 04/26/20 23:10 Saline 0.9% IV 75 mls/hr .Q10H LORRIE Administration Levetiracetam 500 mg 04/27/20 09:00 04/27/20 09:22 Levetiracetam 500 Mg Tab PO 500 mg Q12HR LORRIE Administration Lisinopril 10 mg 04/27/20 09:00 04/27/20 09:22 Lisinopril 10 Mg Tab PO 10 mg DAILY LORRIE Administration Lorazepam 1 mg 04/26/20 22:34 Lorazepam 2 Mg/Ml Inj IV Q4HR PRN Anxiety Lorazepam 0.5 mg 04/26/20 22:45 Lorazepam 2 Mg/Ml Inj IV Q6HR PRN Anxiety Morphine Sulfate 4 mg 04/26/20 22:45 Morphine Sulfate 4 Mg/Ml Syringe IV Q4HR PRN Severe Pain Naloxone HCl 0.2 mg 04/26/20 22:45 Naloxone 0.4 Mg/Ml 1 Ml Vial IV Q2M PRN Opioid Reversal Ondansetron HCl 4 mg 04/26/20 22:45 Ondansetron 4 Mg/2 Ml Vial IVP Q8HR PRN Nausea And Vomiting Oxycodone/Acetaminophen 1 each 04/26/20 22:45 Oxycodone-Apap 5-325mg 1 Each Tab PO Q4HR PRN Severe Pain Pantoprazole Sodium 40 mg 04/27/20 08:30 04/27/20 09:22 Pantoprazole 40 Mg Tablet PO 40 mg [id number] LORRIE Administration Sertraline HCl 150 mg 04/27/20 09:00 04/27/20 09:22 Sertraline 50 Mg Tab PO 150 mg DAILY LORRIE Administration Thiamine HCl 100 mg 04/27/20 09:30 Thiamine 100 Mg Tab PO DAILY LORRIE Intake and Output 04/26/20 04/27/20 04/27/20 22:59 06:59 14:59 Intake Total 480 Output Total 900 Balance -420 Intake: Oral 480 Output: Urine 900 Other: Weight 71.214 kg 71.214 kg Patient Weight 04/28/20 06:59 Weight 71.214 kg 04/26/20 20:59 04/26/20 20:59
[2020-04-27] MEDS: SODIUM CHLORIDE 0.9% 1,000 ML IV SCH ×2 (14:47→23:42)
[2020-04-27] MEDS: HEPARIN SODIUM,PORCINE 5,000 UNIT/ML 1 ML VIAL SQ SCH ×2 (16:32→23:32)
--- NOTE | 2020-04-27 16:47 | EEG ---
ELECTROENCEPHALOGRAM REPORT DATE OF SERVICE: 04/27/2020. CLINICAL HISTORY: This is a 69-year-old gentleman that presented to the emergency department on 04/26/2020 for a seizure episode. The video EEG is obtained to evaluate for seizure and epileptiform discharges. Relevant medication is Keppra. EEG TYPE: A routine 21-channel EEG is performed with video using the 10/20 electrode placement system. DESCRIPTION: Wakefulness and drowsiness are obtained. During wakefulness there is a posterior- dominant rhythm of low to moderate voltage, reactive, well modulated, of 8.5 to 9.5 hertz activity. During drowsiness there is slowing and attenuation of background activity. There is no physiological stage II sleep seen. There is no focal slowing noted. Interictal and ictal is none. ACTIVATION PROCEDURE: Photic stimulation did not evoke a posterior driving response. Hyperventilation is not performed. CLINICAL INTERPRETATION: This is a normal routine EEG. There are no focal slowing, epileptiform discharges or seizure on the EEG. Clinical correlation is recommended. MMRIMMA / GOLDYN: [id number] / HARRY
--- NOTE | 2020-04-27 17:08 | MR ---
EXAMINATION TYPE: MR brain wo/w con DATE OF EXAM: 04/27/2020 COMPARISON: CT brain 04/26/2020 HISTORY: Seizure CONTRAST: Performed utilizing 7 mL intravenous Gadavist gadolinium contrast. TECHNIQUE: Multiplanar, multiecho imaging on a 3.0 Rosaura magnet is performed through the brain. Stud y is performed within 24 hours of arrival to the hospital. The craniovertebral junction is normal. The pituitary is normal. Diffusion-weighted imaging is performed. No abnormal hyperintensity is present to suggest an acute i ntracranial infarct or acute ischemic change. There is patchy periventricular white matter hyperintensity on T2 and inversion recovery weighted seq uences. Some nonspecific but can be related to chronic white matter ischemic changes. Ventricles and sulci are appropriate for the patient age. No abnormal enhancement is evident. IMPRESSIONS: 1. Chronic appearing periventricular white matter ischemic type changes.
--- NOTE | 2020-04-27 17:13 | MR ---
EXAMINATION TYPE: MR angio head wo con DATE OF EXAM: 04/27/2020 COMPARISON: None HISTORY: Seizure CONTRAST: None TECHNIQUE: Multiplanar multiecho imaging on a 3.0 Rosaura magnet is performed through the [place]. 3-D edfr-ep-eldexc imaging is performed. Source images are reviewed on the computer in the axi al plane. Reconstructed images rotating on the computer are reviewed. FINDINGS: The right internal carotid artery bifurcate normally into A1 and M1 segments. Left A1 segm ent is absent. Left middle cerebral artery M1 segment appears normal. The A2 segments are normal. Mi ddle cerebral artery branches are normal. Anterior communicating artery is patent. The right posterior communicating artery is absent. The left posterior communicating artery is absent. Vertebrobasilar arteries within the [id number] are normal. Posterior cerebral vasculature is norm al. No suspicious aneurysm or aneurysmal dilatation is evident. No obstructions are identified. No significant flow-limiting stenosis is evident. IMPRESSIONS: 1. NORMAL MRA [place] OF [place].
[2020-04-27 19:50] VITALS: RESP 18
[2020-04-27] MEDS ORDERED: ATORVASTATIN 40 MG TAB PO SCH (21:00)
[2020-04-28] MEDS: HEPARIN SODIUM,PORCINE 5,000 UNIT/ML 1 ML VIAL SQ SCH (09:01)
[2020-04-28] MEDS: SERTRALINE 50 MG TAB PO SCH (09:01)
[2020-04-28] MEDS: levETIRAcetam 500 MG TAB PO SCH (09:01)
[2020-04-28] MEDS: lisinopriL 10 MG TAB PO SCH (09:02)
[2020-04-28] MEDS: THIAMINE 100 MG TAB PO SCH (09:02)
[2020-04-28] MEDS: PANTOPRAZOLE 40 MG TABLET PO SCH (09:02)
[2020-04-28 09:55] LABS: African American GFR (CKD) 102.1 (60.0-200.0); Anion Gap 7.9 mmol/L (4.00-12.00); BUN/Creat Ratio 21.11 Ratio (12.00-20.00); Calcium 9.1 mg/dL (8.7-10.3); Carbon Dioxide 25.1 mmol/L (21.6-31.8); Non-African American GFR(CKD) 88.1 (60.0-200.0); Potassium 4.2 mmol/L (3.5-5.5)
[2020-04-28] MEDS: oxyCODONE-APAP 5-325MG 1 EACH TAB PO PRN ×2 (10:07→15:14)
[2020-04-28 12:17] VITALS: BP 143/90; TEMP 98.7
[2020-04-28] MEDS: SODIUM CHLORIDE 0.9% 1,000 ML IV SCH (15:09)
--- NOTE | 2020-04-28 16:00 | P.PN ---
Subjective Progress Note Date: 04/28/20 Was seen at bedside and stated he is doing well. He has not had any further seizure episode since she's been the hospital. He feel he is back at baseline. Objective - Vital Signs Vital signs: Vital Signs Temp 98.7 F 04/28/20 08:00 Pulse 93 04/28/20 08:00 Resp 18 04/28/20 08:00 BP 143/90 04/28/20 08:00 Pulse Ox 91 L 04/28/20 08:00 Intake & Output 04/27/20 04/28/20 04/28/20 18:59 06:59 18:59 Intake Total 180 Balance 180 Weight 71.214 kg Intake: Oral 180 Other: Voiding Method Toilet # Voids 3 # Bowel Movements 6 - Exam GENERAL: The patient is lying in bed and is not in acute distress. NEUROLOGICAL: Higher mental function: The patient is awake, alert, oriented to self, place and time. Patient is following commands. No aphasia and no neglect. Cranial nerves: The pupils are round, equal and reactive to light and accommodation. Visual kaur are full to confrontation throughout. Extraocular movement is intact no nystagmus is noted. Facial sensation is normal to touch throughout. The facial strength is normal throughout. Hearing is normal bilaterally to hand rub. Tongue is midline and moved [id number] without any difficulty. No dysarthria is noted. Shoulder shrug is normal bilaterally. Motor: The strength is 5 over 5 throughout. Normal tone and bulk. Cerebellum: Normal finger to nose bilaterally. Sensation: Sensation is normal to touch throughout. Reflexes (right/left): 2+ throughout bilateral upper extremities and 1+ throughout lowers. Plantars are downgoing bilaterally. - Labs CBC & Chem 7: 04/26/20 20:59 04/28/20 05:33 Labs: Abnormal Lab Results - Last 24 Hours (Table) 04/27/20 04/28/20 Range/Units 03:12 05:33 BUN/Creatinine Ratio 21.11 H (12.00-20.00) Ratio Creatine Kinase 299 H (35-257) U/L Assessment and Plan Assessment: This is 69-year-old gentleman with a previous episode of seizure about 4 years ago that presents to [facility] department the EMS on the 04/26/2020 and an episode of seizure. Patient is on any seizure medication. Newly diagnosed Seizure (Seizure episode on 04/26/2020 and one in 2017). Chronic lower back pain Elevated troponin Hyperlipidemia Hypertension Myocardial infarction History of coronary artery disease status post stent History of alcohol use (drinks wisky 3-4 shots per day for past 6 months). Plan: EEG on 04/27/2020: This is normal routine EEG. There are no focal slowing, Lipitor discharges or seizure on EEG. MRI of the brain (could not be done as seizure protocol because of patient cooperation): It is reported as chronic appearing periventricular white matter ischemia type changes. MRA head: Is reported as normal MRA [place]. Continue Keppra 500 mg 1 tablet twice a day. Vitamin B12: 463 which is considered normal. RBC folate level: 573 which is considered normal I placed the patient on thiamine 100mg daily. He is currently is on seizure precaution Patient is on 1 mg of Ativan every 4 hours as needed for anxiety as well as 0.5 mg every 6 hours for anxiety. Please avoid Ativan if not needed. Guarding the elevated troponin and cardiology is consulted and we'll defer the medical to them. Patient has significant cardiac factor. Not sure if elevated troponin is cardiac in etiology or reactive from seizure but will defer the cardiac management to cardiology team. The patient was notified that according to the [place] that the patient cannot drive for 6 month until seizure-free. He is to avoid the [place], swimming unassisted and avoid any heavy machinery. He was counseled on alcohol cessation. And it was notified that he is to follow up with a neurologist within 1-2 weeks upon discharge. We'll defer the rest of the medical management to the primary team. From a neurologist protective patient is clear for discharge. There is no further neurological workup. Roe Godinez MD Neuro-Hospitalist Time with Patient: Less than 30
[2020-04-28 16:46] VITALS: PULSE 74
== END 2020-04-28 16:25 | disposition home or self-care (01) ==
LOC: EC 20:14 → 6NMEDSUR 22:24
PROVIDERS: ADMIT Internal Medicine; ATTEND Internal Medicine
DX: R56.9 Unspecified convulsions (principal); N17.9 Acute kidney failure, unspecified; E87.2 Acidosis; R79.89 Other specified abnormal findings of blood chemistry; I10 Essential (primary) hypertension; I25.10 Atherosclerotic heart disease of native coronary artery without angina pectoris; M19.90 Unspecified osteoarthritis, unspecified site; E83.41 Hypermagnesemia; F41.9 Anxiety disorder, unspecified; R51.9 Headache, unspecified; Z20.828 Contact with and (suspected) exposure to other viral communicable diseases; E78.5 Hyperlipidemia, unspecified; M54.5 Low back pain; G89.29 Other chronic pain; Z72.89 Other problems related to lifestyle; D64.9 Anemia, unspecified; Z79.82 Long term (current) use of aspirin; Z79.891 Long term (current) use of opiate analgesic; Z79.899 Other long term (current) drug therapy; Z88.5 Allergy status to narcotic agent; Z88.8 Allergy status to other drugs, medicaments and biological substances; Z87.891 Personal history of nicotine dependence; Z95.5 Presence of coronary angioplasty implant and graft; Z87.19 Personal history of other diseases of the digestive system; I25.2 Old myocardial infarction; Z85.46 Personal history of malignant neoplasm of prostate; Z86.718 Personal history of other venous thrombosis and embolism; Z90.49 Acquired absence of other specified parts of digestive tract; Z98.890 Other specified postprocedural states
CPT/HCPCS: 96376; 96361 ×3; 96372 ×2; 96375; 96374; 99285; 36415; 95816; 93005; 93306; 82747; 80061; 80053; 80048; 82607; 82550; 83605 ×2; 83735; 84484 ×2; 85025; 87635; 71046; 72125; 70450; 70544; 70553; G0378 ×3; J2060; J1644 ×2; J1953 ×2; A9585; Q9950

== ENCOUNTER → 2021-06-19 | Outpatient (CLI) | payer OTHER ==
[2021-06-19 13:48] LABS: African American GFR (CKD) >90 (>60 ml/min/1.73 sqM); Blood Urea Nitrogen 14 mg/dL (9-20); Non-African American GFR(CKD) 80 (>60 ml/min/1.73 sqM)
--- NOTE | 2021-06-19 15:11 | CT ---
EXAMINATION TYPE: CT abdomen pelvis wo/w con DATE OF EXAM: 06/19/2021 COMPARISON: No previous CT scan is available for comparison HISTORY: ABDOMINAL PAIN CT DLP: 1191.7 mGycm Automated exposure control for dose reduction was used. TECHNIQUE: Helical acquisition of images was performed from the lung bases through the pelvis. CONTRAST: Performed with Oral Contrast and without and with IV Contrast, patient injected with 100ML mL of Isov ue 300. FINDINGS: LUNG BASES: Bilateral basal thick linear pulmonary atelectasis. Coronary arterial calcifications. LIVER/GB: Suspected 5 mm cyst at the anterior aspect of the left hepatic lobe, otherwise unremarkable liver. 3 mm density seen at the posterior aspect of the gallbladder, inseparable from the wall which could represent a tiny calculus versus a polyp, for further elective ultrasound assessment. PANCREAS: Fatty infiltration of the pancreatic head, otherwise unremarkable pancreas. SPLEEN: 12 mm lower splenic hypodensity that could represent a cyst or a hemangioma, for further elec tive ultrasound assessment. Unremarkable spleen otherwise. ADRENALS: No significant abnormality is seen. KIDNEYS: No significant abnormality is seen. FREE AIR: No free air is visualized. RETROPERITONEAL ADENOPATHY: None visualized REPRODUCTIVE ORGANS: Enlarged heterogeneous prostate, please correlate with PSA level. Unremarkable s eminal vesicles. URINARY BLADDER: Nondistended PELVIC ADENOPATHY: None visualized. OSSEOUS STRUCTURES: Degenerative changes of the lower lumbar spine. No aggressive bone lesion. BOWEL: Unremarkable nondistended stomach and duodenum. Previous subtotal colectomy with unremarkable ileocolic anastomosis in the pelvis. Unremarkable visualized portion of the colon and rectum. OTHER: Arterial abdominal wall previous hernia repair. Scattered arterial atherosclerotic calcificati ons. No sizable ascites. IMPRESSION: No definite acute abnormality or suspicious lesion seen in the abdomen or the pelvis. Incidental find ings and recommendations as described above.
== END | disposition home or self-care (01) ==
LOC: RADCTMAIN 12:51
DX: R10.9 Unspecified abdominal pain (principal)
CPT/HCPCS: 82565; 84520; 74178; 36415; Q9967

== ENCOUNTER → 2022-01-30 | Outpatient (CLI) | payer OTHER ==
[2022-01-30 17:12] LABS: African American GFR (CKD) >90 (>60 ml/min/1.73 sqM); Blood Urea Nitrogen 18 mg/dL (9-20); Non-African American GFR(CKD) 87 (>60 ml/min/1.73 sqM)
--- NOTE | 2022-01-31 07:24 | CT ---
EXAMINATION TYPE: CT abdomen pelvis wo/w con CT DLP: 2065 mGycm, Automated exposure control for dose reduction was used. DATE OF EXAM: 01/30/2022 5:44 PM COMPARISON: CT abdomen pelvis most recent from 06/19/2021 CLINICAL INDICATION:Male, 71 years old with history of R93.5 ABN FINDINGS ON DX IMAGING OF ABD REGION S, I; RLQ pain x9 months, h/o most of small and all of large colon removed and was reversed in 2017 TECHNIQUE: Axial CT of the abdomen and pelvis. Sagittal and coronal reformats were created on a [employer] workstation. Contrast used:100 mL of Isovue 300 with IV Contrast, Oral contrast used: with Oral Contrast FINDINGS: LOWER CHEST: Streaky atelectasis/scarring within the lung bases. ABDOMEN LIVER: Unremarkable GALLBLADDER AND BILE DUCTS: Unremarkable. PANCREAS: Unremarkable. SPLEEN: Unremarkable. ADRENAL GLANDS: Unremarkable. KIDNEYS AND URETERS: No evidence of hydronephrosis or renal calculus. The ureters are unremarkable. PELVIS BLADDER: Unremarkable REPRODUCTIVE: Prostate is enlarged in size measuring 5.1 cm in transverse dimension. ABDOMEN & PELVIS STOMACH AND BOWEL: No evidence of bowel obstruction. Surgical changes to the colon with partial colec geno. PERITONEUM: No evidence of pneumoperitoneum or free fluid. VASCULATURE: No evidence of aortic aneurysm. Atherosclerosis of the arterial vasculature. MUSCULOSKELETAL: No acute osseous abnormalities multilevel disc degeneration changes are seen through out the spine. LYMPH NODES: No gross evidence for lymphadenopathy. SOFT TISSUE/ABDOMINAL WALL: Anterior abdominal wall surgical mesh noted. Small right fat-containing h ernia. IMPRESSION: 1. No evidence for acute abdominal process to explain the patient's pain. There may be a small right inguinal hernia. 2. Postsurgical changes to the anterior abdominal wall and colon consistent with partial colectomy. 3. Prostatomegaly. Correlate with serum PSA.
== END | disposition home or self-care (01) ==
LOC: RADCTMAIN 15:41
DX: N40.0 Benign prostatic hyperplasia without lower urinary tract symptoms (principal)
CPT/HCPCS: 82565; 84520; 74178; 36415; Q9967

== ENCOUNTER 2022-07-30 08:07 | Inpatient (IN) | payer OTHER ==
[2022-07-26 09:00] VITALS: BMI 24.7
[~2022-07-30 08:07] MED LIST: ACETAMINOPHEN TAB 500 MG TAB PO PRN; DEXAMETHASONE SOD PHOSPHATE 4 MG/ML 1 ML VIAL IV ONE; HEPARIN SODIUM,PORCINE/PF 5,000 UNIT/0.5 ML SYRINGE SQ PRN; LACTATED RINGERS 1,000 ML IV SCH; LIDOCAINE 1% (10MG/ML) FOR IV START INTRADERMA PRN; MIDAZOLAM 2 MG/2 ML VIAL IV PRN; ONDANSETRON 4 MG/2 ML VIAL IVP ONE
[2022-07-30 09:11] LABS: Glucose,Whole Blood 86 mg/dL (70-110)
[2022-07-30 09:18] LABS: Basophils % (A) 1 %; Eosinophils # (A) 0.1 k/uL (0-0.7); Eosinophils % (A) 2 %; HCT 50.8 % (39.0-53.0); HGB 16.1 gm/dL (13.0-17.5); Lymphocytes # (A) 1.9 k/uL (1.0-4.8); Lymphocytes % (A) 25 %; MCH 28.6 pg (25.0-35.0); MCHC 31.7 g/dL (31.0-37.0); MCV 90.3 fL (80.0-100.0); Mean Platelet Volume 7.6; Monocytes # (A) 0.5 k/uL (0-1.0); Monocytes % (A) 6 %; Neutrophils # (A) 4.9 k/uL (1.3-7.7); Neutrophils % (A) 64 %; Platelet Count 166 k/uL (150-450); RBC 5.63 m/uL (4.30-5.90); RDW 13.6 % (11.5-15.5); WBC 7.6 k/uL (3.8-10.6)
[2022-07-30 09:38] LABS: ALT 29 U/L (4-49); AST 41 U/L (17-59); African American GFR (CKD) >90 (>60 ml/min/1.73 sqM); Albumin 4.3 g/dL (3.5-5.0); Alkaline Phosphatase 25 U/L (38-126); Anion Gap 9 mmol/L; Blood Urea Nitrogen 25 mg/dL (9-20); Carbon Dioxide 24 mmol/L (22-30); Chloride 105 mmol/L (98-107); Glucose 94 mg/dL (74-99); Non-African American GFR(CKD) 79 (>60 ml/min/1.73 sqM); Sodium 138 mmol/L (137-145); Total Protein 7.1 g/dL (6.3-8.2)
[2022-07-30 10:05] LABS: Potassium 5.8 mmol/L (3.5-5.1)
[2022-07-30] MEDS ORDERED: GLYCOPYRROLATE 0.2 MG/ML 2 ML VIAL ONE (10:47)
[2022-07-30] MEDS ORDERED: NEOSTIGMINE 1 MG/ML 10 ML VIAL ONE (10:47)
[2022-07-30] MEDS ORDERED: ROCURONIUM 10 MG/ML (5 ML VIAL) IV ONE (10:47)
[2022-07-30] MEDS ORDERED: ROPIVACAINE 5 MG/ML 30 ML VIAL ONE (10:47)
[2022-07-30] MEDS ORDERED: PHENYLEPHRINE-0.9% NACL SYG 1,000 MCG/10 ML SYRINGE ONE (10:47)
[2022-07-30] MEDS ORDERED: fentaNYL (PF) 50 MCG/ML 2 ML AMP ONE (10:47)
[2022-07-30] MEDS ORDERED: DEXAMETHASONE SOD PHOSPHATE 4 MG/ML 1 ML VIAL ONE (10:47)
[2022-07-30] MEDS ORDERED: KETAMINE 10 MG/ML 20 ML VIAL ONE (10:47)
[2022-07-30] MEDS ORDERED: HYDROmorphone (PF) 1 MG/ML ONE (10:47)
[2022-07-30] MEDS ORDERED: MIDAZOLAM 2 MG/2 ML VIAL ONE (10:47)
[2022-07-30] MEDS ORDERED: PROPOFOL 10 MG/ML 20 ML VIAL IV ONE (10:47)
[2022-07-30 11:48] VITALS: TEMP 97.1
[2022-07-30] MEDS: HYDROmorphone 0.5 MG/0.5 ML SYRINGE IVP PRN ×4 (11:55→12:18)
[2022-07-30 13:49] VITALS: RESP 18
[2022-07-30 15:17] VITALS: BP 105/64; PULSE 54
--- NOTE | 2022-08-02 11:59 | P.ANPRN ---
Procedure Note - Anesthesia - Nerve Block Performed Bilateral Transversus Abdominis Single Time Out Performed: Yes Date of Procedure: 07/30/22 Procedure Start Time: 12:45 Procedure Stop Time: 12:53 Location of Patient: PreOp Indication: Acute Post-Operative Pain, Requested by Surgeon Sedation Type: Sedate with meaningful contact maintained Preparation: Sterile Prep Position: Supine Needle Types: Pajunk Needle Gauge: 21 Ultrasound used to visualize needle placement: Yes Ultrasound used to observe medication spread: Yes Blood Aspirated: No Pain Paresthesia on Injection Noted: No Resistance on Injection: Normal Image Stored and Saved: Yes Events: Uneventful and Well Tolerated (Ropivacaine 0.5% 20 mL plus dexamethasone 4 mg given bilaterally)
--- NOTE | 2022-08-21 10:50 | P.OP ---
Date of Procedure: 07/30/22 Preoperative Diagnosis: Incisional hernia Postoperative Diagnosis: Incisional hernia Procedure(s) Performed: Open Repair of incisional hernia with Prolene mesh. Anesthesia: LENNY Surgeon: Rikki Recinos Estimated Blood Loss (ml): 10 Pathology: none sent Condition: stable Disposition: PACU Description of Procedure: The patient's placed on the operative table in the supine position. He received general endotracheal anesthesia. The patient had an incisional hernia which extended to his previous colostomy site. The skin was incised in midline. Using blunt and sharp dissection with cautery the hernia was dissected free from some taste tissues. The hernia sac was opened. The hernia sac contained incarcerated omentum. This was placed back in the peritoneal cavity. The hernia measured approximately 12 cm in length. The fascial repair was then performed using. 0 Ethibond suture. A piece of Prolene mesh was placed over top the repair and secured with secure strap tacker. A DOROTHY drains placed over top the mesh and brought out through separate stab incision. Cody's fascia closed with 0 Vicryl. Skin was closed jessica. Patient top she will was sent to recovery room in stable condition.
== END 2022-07-30 15:45 | disposition home or self-care (01) | DRG 355 ==
LOC: OR 08:07 → 6NMEDSUR 11:26 → OR 15:45 → UNDOADMIN 08-28 23:09 → 6NMEDSUR 08-28 23:09
PROVIDERS: ADMIT Surgery; ATTEND Surgery
PROC: 0WUF0JZ Supplement Abdominal Wall with Synthetic Substitute, Open Approach (ICD-10-PCS; principal; 2022-07-30 08:40)
DX: K43.2 Incisional hernia without obstruction or gangrene (principal); I10 Essential (primary) hypertension; I25.10 Atherosclerotic heart disease of native coronary artery without angina pectoris; E78.5 Hyperlipidemia, unspecified; I25.2 Old myocardial infarction; G40.909 Epilepsy, unspecified, not intractable, without status epilepticus; Z79.82 Long term (current) use of aspirin; Z79.899 Other long term (current) drug therapy; Z87.891 Personal history of nicotine dependence; Z88.5 Allergy status to narcotic agent; Z90.49 Acquired absence of other specified parts of digestive tract; Z87.19 Personal history of other diseases of the digestive system; Z86.19 Personal history of other infectious and parasitic diseases
CPT/HCPCS: 64488; 80053; 85025

== ENCOUNTER → 2023-05-16 | Outpatient (CLI) | payer OTHER ==
--- NOTE | 2023-05-17 18:51 | US ---
EXAMINATION TYPE: US abdomen limited DATE OF EXAM: 05/16/2023 COMPARISON: NONE CLINICAL INDICATION: Male, 72 years old with history of L76.34 SEROMA SKIN; Midline lower abdomen pal pable/painful area over scar from recent hernia surgery FINDINGS: Money Position Officer notes: 3.4 x 1.2 x 3.5cm hypoechoic area seen at patient's area of concern IMPRESSION: Focal 3.5 x 3.4 x 1.2 cm hypoechoic area at the area of patient's concern along the midline abdominal wall musculature corresponding to the patient's site of surgery. Either a small postoperative seroma or scar tissue are suspected.
== END | disposition home or self-care (01) ==
LOC: RADUSWWP 14:45
PROVIDERS: ATTEND Surgery
DX: L76.34 Postprocedural seroma of skin and subcutaneous tissue following other procedure (principal); L90.5 Scar conditions and fibrosis of skin
CPT/HCPCS: 76705

== ENCOUNTER 2023-06-02 07:10 | Day surgery (SDC) | payer OTHER ==
[~2023-06-02 07:10] MED LIST changes: -ACETAMINOPHEN TAB 500 MG TAB PO PRN; -DEXAMETHASONE SOD PHOSPHATE 4 MG/ML 1 ML VIAL IV ONE; -HEPARIN SODIUM,PORCINE/PF 5,000 UNIT/0.5 ML SYRINGE SQ PRN; -LACTATED RINGERS 1,000 ML IV SCH; -LIDOCAINE 1% (10MG/ML) FOR IV START INTRADERMA PRN; -MIDAZOLAM 2 MG/2 ML VIAL IV PRN; -ONDANSETRON 4 MG/2 ML VIAL IVP ONE; +Pre Op ABX Message 1 EACH MISC MISCELLANE ONE
[2023-06-02] MEDS ORDERED: HYDROmorphone 0.5 MG/0.5 ML SYRINGE IVP PRN (07:33)
[2023-06-02] MEDS ORDERED: MIDAZOLAM 2 MG/2 ML VIAL IV PRN (07:33)
[2023-06-02] MEDS ORDERED: LIDOCAINE 1% (10MG/ML) FOR IV START INTRADERMA PRN (07:33)
[2023-06-02] MEDS: LACTATED RINGERS 1,000 ML IV SCH (08:14)
[2023-06-02] MEDS: DEXAMETHASONE SOD PHOSPHATE 4 MG/ML 1 ML VIAL IV ONE (08:23)
[2023-06-02] MEDS: ACETAMINOPHEN TAB 500 MG TAB PO PRN (08:23)
[2023-06-02] MEDS: HEPARIN SODIUM,PORCINE 5,000 UNIT/ML 1 ML VIAL SQ PRN (08:23)
[2023-06-02] MEDS: ONDANSETRON 4 MG/2 ML VIAL IVP ONE (08:23)
[2023-06-02] MEDS ORDERED: MIDAZOLAM 2 MG/2 ML VIAL ONE (08:29)
[2023-06-02] MEDS ORDERED: ceFAZolin 1 GM/50 ML BAG (PMX) ONE (08:29)
[2023-06-02] MEDS ORDERED: PROPOFOL 10 MG/ML 20 ML VIAL IV ONE (08:29)
[2023-06-02] MEDS ORDERED: fentaNYL (PF) 50 MCG/ML 2 ML AMP ONE (08:29)
[2023-06-02] MEDS ORDERED: NEOSTIGMINE 1 MG/ML 10 ML VIAL ONE (08:29)
[2023-06-02] MEDS ORDERED: ROCURONIUM 10 MG/ML (5 ML VIAL) IV ONE (08:29)
[2023-06-02] MEDS ORDERED: ePHEDrine 50 MG/ML 1 ML VIAL ONE (08:29)
[2023-06-02] MEDS ORDERED: KETOROLAC 15 MG/ML 1 ML VIAL ONE (08:29)
[2023-06-02] MEDS ORDERED: SUCCINYLCHOLINE CHLORIDE 200 MG/10 ML VIAL IV ONE (08:29)
[2023-06-02] MEDS ORDERED: GLYCOPYRROLATE 0.2 MG/ML 2 ML VIAL ONE (08:29)
[2023-06-02] MEDS ORDERED: LIDOCAINE 1% INJ 10MG/ML (20 ML MDV) ONE (08:29)
[2023-06-02] MEDS: SODIUM CHLORIDE 0.9% 50 ML with ceFAZolin 2,000 MG IV ONE (09:05)
[2023-06-02] MEDS: LIDOCAINE 1%-EPI 1:100,000 50 ML VIAL SQ ONE (09:20)
--- NOTE | 2023-06-02 09:43 | P.OP ---
Date of Procedure: 06/02/23 Preoperative Diagnosis: Abdominal wall mass Postoperative Diagnosis: Abdominal wall and this Procedure(s) Performed: Excision of abdominal wall mass Anesthesia: LENNY Surgeon: Rikki Recinos Estimated Blood Loss (ml): 5 Pathology: other (Abdominal wall mass) Condition: stable Disposition: PACU Description of Procedure: The patient's placed on the operative table in the supine position. He received general endotracheal anesthesia. His abdomen was prepped and draped in usual s terile fashion. The patient had a mass in the right lower quadrant related to his previous colostomy reversal. The skin was incised. Then using blunt sharp dissection with cautery the subcutaneous tissue divided. The patient had a dense abdominal wall mass which probably related to a previous scar. The mesh measured prostate 5 cm diameter. This was excised with left cautery. The posterior cyst. A DOROTHY drains placed a wound brought through separate stab incision the deep subcutaneous layers closed 0 Vicryl. Skin was closed jessica. Patient tolerated the procedure well. He was sent to recovery room stable condition.
[2023-06-02 10:01] VITALS: RESP 16; TEMP 98
[2023-06-02 11:46] VITALS: BP 108/71; PULSE 68
== END 2023-06-02 11:48 | disposition home or self-care (01) ==
LOC: OR 07:10
PROVIDERS: ATTEND Surgery
DX: L90.5 Scar conditions and fibrosis of skin (principal); K43.2 Incisional hernia without obstruction or gangrene; Z79.899 Other long term (current) drug therapy
CPT/HCPCS: 88307; 22903; J2250; J0330; J1644; J1100; J2710; J2405; J0690 ×2; J2001; J3010; J1885; J2704

== ENCOUNTER 2023-09-19 15:22 | Emergency (ER) | payer OTHER ==
--- NOTE | 2023-09-19 16:45 | ED ---
Recheck HPI - General Chief Complaint: Recheck/Abnormal Lab/Rx Stated Complaint: High Potassium-sent by Time Seen by Provider: 09/19/23 16:11 Source: patient, RN notes reviewed, old records reviewed Mode of arrival: ambulatory Limitations: no limitations - History of Present Illness Initial Comments: This is a 72-year-old male to the ER for evaluation today. Patient presents today for evaluation regards to elective outpatient elevated potassium. Patient has no complaints remains without complaint. Patient has no recent change in medications. Patient does not take endogenous potassium and no dietary changes MD Complaint: abnormal lab (Elevated potassium) -: unknown Returns Today for: Called Because of Abnormal Lab/Test Symptoms Since Prior Visit: no new symptoms Context: called for abnormal lab result Associated Symptoms: none Treatments Prior to Arrival: other (0) - Related Data Home Medications Medication Instructions Recorded Confirmed Nitroglycerin Sl Tabs [Nitrostat] 0.4 mg SL Q5M PRN 08/18/13 09/19/23 Aspirin [[place] Aspirin EC] 81 mg PO DAILY 08/18/18 09/19/23 HYDROcodone/APAP 10-325MG [[place] 1 tab PO QID PRN 08/18/18 09/19/23 10-325] Albuterol Sulfate [Albuterol 1 puff INHALATION RT-Q4H PRN 04/26/20 09/19/23 Sulfate Hfa] Atorvastatin Calcium [Lipitor] 40 mg PO HS 04/26/20 09/19/23 hydroCHLOROthiazide [Hydrodiuril] 12.5 mg PO DAILY 04/26/20 09/19/23 lisinopriL [Zestril] 10 mg PO BID 04/26/20 09/19/23 Divalproex [Depakote] 250 mg PO BID 07/25/22 09/19/23 Ezetimibe [Zetia] 10 mg PO DAILY 07/25/22 09/19/23 Divalproex Sodium [Depakote] 500 mg PO BID 09/19/23 09/19/23 Fluticasone Nasal [place] [Flonase 2 spray EA NOSTRIL BID 09/19/23 09/19/23 Nasal [place]] Gabapentin 300 mg PO HS 09/19/23 09/19/23 Loratadine [Claritin] 10 mg PO DAILY 06/28/24 06/28/24 Allergies Allergy/AdvReac Type Severity Reaction Status Date / Time fentanyl Allergy Rash/Hives Verified 09/19/23 18:59 isosorbide Allergy DIZZINESS, Verified 09/19/23 18:59 Severe HEADache ranolazine Allergy WEAKNESS Verified 09/19/23 18:59 Review of Systems ROS Statement: Those systems with pertinent positive or pertinent negative responses have been documented in the HPI. ROS Other: All systems not noted in ROS Statement are negative. Past Medical History Past Medical History: Coronary Artery Disease (CAD), GERD/Reflux, GI Bleed, Hyperlipidemia, Hypertension, Myocardial Infarction (UT), Osteoarthritis (OA), Prostate Disorder Additional Past Medical History / Comment(s): GI BLEED, ANEMIA, DJD,BULGING DISCS,ARTHRITIS,CHRONIC BACK PAIN, BLOOD CLOTS-heart,C-Diff,Severe sepsis w/ acute renal failure WBC ct [facility] 77,000 [facility] 2017 [facility] [place] [place] [facility],had only 2 seizures-last seizure 2-4-21(states "both seizures at time of heart attacks"),internal hemorrhoids. PSA variable. 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 Last Myocardial Infarction Date:: August 2008,2016,2020 History of Any Multi-Drug Resistant Organisms: None Reported Past Surgical History: Bowel Resection, Heart Catheterization, Heart Catheterization With Stent, Hernia Repair, Orthopedic Surgery, Prostate Surgery, Tonsillectomy Additional Past Surgical History / Comment(s): 4 heart stents, elbow surgery, colonoscopy, EGD, hemorroidectomy, TURP-had infection post op causing sepsis then large intestine and part of small intestine removed Past Anesthesia/Blood Transfusion Reactions: No Reported Reaction Additional Past Anesthesia/Blood Transfusion Reaction / Comment(s): 10 previous blood transfusions, no problems with infusions. Date of Last Stent Placement:: 2009,? Past Psychological History: Anxiety Smoking Status: Former smoker - Past Family History Mother History Unknown: Yes Family Medical History: Cancer Additional Family Medical History / Comment(s): 91 yrs old still living, breast CA Father Family Medical History: Hearing Disorder / Deafness Additional Family Medical History / Comment(s): Father is deaf. He is 93 yrs old. General Exam Limitations: no limitations General appearance: alert, in no apparent distress Head exam: Present: atraumatic, normocephalic, normal inspection Eye exam: Present: normal appearance, PERRL, EOMI. Absent: scleral icterus, conjunctival injection, periorbital swelling ENT exam: Present: normal exam, mucous membranes moist Neck exam: Present: normal inspection. Absent: tenderness, meningismus, lymphadenopathy Respiratory exam: Present: normal lung sounds bilaterally. Absent: respiratory distress, wheezes, rales, rhonchi, stridor Cardiovascular Exam: Present: regular rate, normal rhythm, normal heart sounds. Absent: systolic murmur, diastolic murmur, rubs, gallop, clicks GI/Abdominal exam: Present: soft, normal bowel sounds. Absent: distended, tenderness, guarding, rebound, rigid Extremities exam: Present: normal inspection, full ROM, normal capillary refill. Absent: tenderness, pedal edema, joint swelling, calf tenderness Back exam: Present: normal inspection Neurological exam: Present: alert, oriented X3, CN II-XII intact Psychiatric exam: Present: normal affect, normal mood Skin exam: Present: warm, dry, intact, normal color. Absent: rash Course Vital Signs 09/19/23 09/19/23 09/19/23 15:54 17:44 18:45 Temperature 98.6 F Pulse Rate 73 60 58 L Respiratory 18 14 16 Rate Blood Pressure 119/71 130/76 127/85 O2 Sat by Pulse 94 L 95 94 L Oximetry 09/19/23 19:23 Temperature 98.4 F Pulse Rate 64 Respiratory 14 Rate Blood Pressure 141/85 O2 Sat by Pulse 97 Oximetry - Reevaluation(s) Reevaluation #1: 09/19/23 18:18 Medical records reviewed Reevaluation #2: 09/19/23 18:18 Patient symptoms unchanged Reevaluation #3: 09/19/23 18:18 Patient informed of results questions answered Reevaluation #4: Was pt. sent in by a medical professional or institution (, PA, MOLASS[employer] PREPARER, urgent care, hospital, or snf...) When possible be specific @ -no Did you speak to anyone other than the patient for history (EMS, parent, family, police, friend...)? What history was obtained from this source @ -no Did you review nursing and triage notes (agree or disagree)? Why? @ -agree Are old charts reviewed (outside hosp., previous admission, EMS record, old EKG, old radiological studies, urgent care reports/EKG's, snf records)? Report findings @ -yes Differential Diagnosis (chest pain, altered mental status, abdominal pain women, abdominal pain men, vaginal bleeding, weakness, fever, dyspnea, syncope, headache, dizziness, GI bleed, back pain, seizure, CVA, palpatations, mental health, musculoskeletal)? @ -prior EKG interpreted by me (3pts min.). @ -yes X-rays interpreted by me (1pt min.). @ -no CT interpreted by me (1pt min.). @ -no U/S interpreted by me (1pt. min.). @ -no What testing was considered but not performed or refused? (CT, X-rays, U/S, labs)? Why? @ -none What meds were considered but not given or refused? Why? @ -none Did you discuss the management of the patient with other professionals (professionals i.e. , PA, [employer]ER, lab, RT, psych nurse, social insurance administrator, seaman, teacher, casino surveillance officer, case management associate)? Give summary @ -no Was smoking cessation discussed for >3mins.? @ -no Was critical care preformed (if so, how long)? @ -no Were there social determinants of health that impacted care today? How? (Homelessness, low income, unemployed, alcoholism, drug addiction, transportati on, low edu. Level, literacy, decrease access to med. care, custodial, rehab)? @ -none Was there de-escalation of care discussed even if they declined (Discuss DNR or withdrawal of care, Hospice)? DNR status @ -no What co-morbidities impacted this encounter? (DM, HTN, Smoking, COPD, CAD, Cancer, CVA, ARF, Chemo, Hep., AIDS, mental health diagnosis, sleep apnea, morbid obesity)? @ -none Was patient admitted / discharged? Hospital course, mention meds given and route, prescriptions, significant lab abnormalities, going to OR and other pertinent info. @ - 72 male to the ER for evaluation of elevated potassium. Lab testing is normal here in the ER he feels well and has no complaints and can be discharged home Discharge Undiagnosed new problem with uncertain prognosis? @ -no Drug Therapy requiring intensive monitoring for toxicity (Heparin, Nitro, Insulin, Cardizem)? @ -no Were any procedures done? @ -no Diagnosis/symptom? @ -Normal exam Acute, or Chronic, or Acute on Chronic? @ -Acute Uncomplicated (without systemic symptoms) or Complicated (systemic symptoms)? @ -Complicated Side effects of treatment? @ -no Exacerbation, Progression, or Severe Exacerbation? @ -exacerbation Poses a threat to life or bodily function? How? (Chest pain, [place], [place], pneumonia, PE, COPD, DKA, ARF, appy, cholecystitis, CVA, Diverticulitis, Homicidal, Suicidal, threat to staff... and all critical care pts) @ -yes possibility of high potassium Medical Decision Making - Medical Decision Making 72 male to the ER for evaluation of elevated potassium. Lab testing is normal here in the ER he feels well and has no complaints and can be discharged home - Lab Data Result diagrams: 09/19/23 17:22 09/19/23 17:22 Lab Results 09/19/23 09/19/23 Range/Units 17:22 17:22 WBC 5.8 (3.8-10.6) k/uL RBC 5.08 (4.30-5.90) m/uL Hgb 15.0 (13.0-17.5) gm/dL Hct 45.9 (39.0-53.0) % MCV 90.3 (80.0-100.0) fL MCH 29.6 (25.0-35.0) pg MCHC 32.7 (31.0-37.0) g/dL RDW 14.0 (11.5-15.5) % Plt Count 147 L (150-450) k/uL MPV 7.6 Neutrophils % 57 % Lymphocytes % 32 % Monocytes % 7 % Eosinophils % 1 % Basophils % 0 % Neutrophils # 3.3 (1.3-7.7) k/uL Lymphocytes # 1.8 (1.0-4.8) k/uL Monocytes # 0.4 (0-1.0) k/uL Eosinophils # 0.1 (0-0.7) k/uL Basophils # 0.0 (0-0.2) k/uL Sodium 136 L (137-145) mmol/L Potassium 4.4 (3.5-5.1) mmol/L Chloride 103 (98-107) mmol/L Carbon Dioxide 26 (22-30) mmol/L Anion Gap 7 mmol/L BUN 17 (9-20) mg/dL Creatinine 1.11 (0.66-1.25) mg/dL Est GFR (CKD-EPI)AfAm 78 (>60 ml/min/1.73 sqM) Est GFR (CKD-EPI)NonAf 67 (>60 ml/min/1.73 sqM) Glucose 77 (74-99) mg/dL Calcium 9.2 (8.4-10.2) mg/dL Phosphorus 4.7 H (2.5-4.5) mg/dL Magnesium 1.9 (1.6-2.3) mg/dL Total Bilirubin 0.3 (0.2-1.3) mg/dL AST 25 (17-59) U/L ALT 17 (4-49) U/L Alkaline Phosphatase 40 (38-126) U/L Total Protein 5.9 L (6.3-8.2) g/dL Albumin 3.8 (3.5-5.0) g/dL - EKG Data -: EKG Interpreted by Me (EKG is sinus 62 MT 162 QRS 89 QTc 411) Disposition Clinical Impression: Normal exam Disposition: HOME SELF-CARE Condition: Good Instructions (If sedation given, give patient instructions): Normal Exam (ED) Is patient prescribed a controlled substance at d/c from ED?: No Referrals: [facility],Clinic [Primary Care Provider] - 1-2 days Time of Disposition: 18:30
[2023-09-19] MEDS: SODIUM CHLORIDE 0.9% 500 ML 500 ML IV STA (17:54)
[2023-09-19 18:24] LABS: Basophils % (A) 0 %; Eosinophils # (A) 0.1 k/uL (0-0.7); Eosinophils % (A) 1 %; HCT 45.9 % (39.0-53.0); Lymphocytes # (A) 1.8 k/uL (1.0-4.8); Lymphocytes % (A) 32 %; MCH 29.6 pg (25.0-35.0); MCHC 32.7 g/dL (31.0-37.0); MCV 90.3 fL (80.0-100.0); Mean Platelet Volume 7.6; Monocytes # (A) 0.4 k/uL (0-1.0); Monocytes % (A) 7 %; Neutrophils # (A) 3.3 k/uL (1.3-7.7); Neutrophils % (A) 57 %; Platelet Count 147 k/uL (150-450); RBC 5.08 m/uL (4.30-5.90); WBC 5.8 k/uL (3.8-10.6)
[2023-09-19 18:35] LABS: ALT 17 U/L (4-49); AST 25 U/L (17-59); African American GFR (CKD) 78 (>60 ml/min/1.73 sqM); Albumin 3.8 g/dL (3.5-5.0); Alkaline Phosphatase 40 U/L (38-126); Anion Gap 7 mmol/L; Blood Urea Nitrogen 17 mg/dL (9-20); Calcium 9.2 mg/dL (8.4-10.2); Carbon Dioxide 26 mmol/L (22-30); Chloride 103 mmol/L (98-107); Glucose 77 mg/dL (74-99); Magnesium 1.9 mg/dL (1.6-2.3); Non-African American GFR(CKD) 67 (>60 ml/min/1.73 sqM); Phosphorus 4.7 mg/dL (2.5-4.5); Potassium 4.4 mmol/L (3.5-5.1); Sodium 136 mmol/L (137-145); Total Bilirubin 0.3 mg/dL (0.2-1.3); Total Protein 5.9 g/dL (6.3-8.2)
[2023-09-19] MEDS: KETOROLAC 15 MG/ML 1 ML VIAL IVP STA (19:05)
[2023-09-19] MEDS: PROCHLORPERAZINE INJ 10 MG/2 ML VIAL IVP STA (19:06)
[2023-09-19 19:29] VITALS: BP 141/85; PULSE 64; RESP 14; TEMP 98.4
== END 2023-09-19 19:34 | disposition home or self-care (01) ==
LOC: EC 15:22
DX: R79.9 Abnormal finding of blood chemistry, unspecified (principal); Z88.8 Allergy status to other drugs, medicaments and biological substances; Z87.891 Personal history of nicotine dependence; Z95.5 Presence of coronary angioplasty implant and graft
CPT/HCPCS: 36415; 93005; 80053; 83735; 84100; 85025; 99284; 96374; 96375; J0780; J1885

== ENCOUNTER → 2024-02-25 | Outpatient (CLI) | payer OTHER ==
--- NOTE | 2024-02-25 08:57 | MR ---
EXAMINATION TYPE: MR Prostate wo/w con DATE OF EXAM: 02/25/2024 8:31 AM COMPARISON: None. CLINICAL INDICATION: Male, 73 years old with history of R97.20 Elevated PSA; Elevated PSA. TECHNIQUE: Multi-planar, multi-sequence imaging of the pelvis is performed prior to and following the uncomplicated administration of bolus intravenous gadolinium. IV Contrast: 7 mL Gadobutrol Interpretive Criteria: PI-RADS v2.1 SERUM PSA: 10-12-23 = 8.76 10-21-22 = 8.07 SURGICAL PATHOLOGY: No data available. FINDINGS: Prostatic dimensions: 5.4 x 4.7 x 4.9 cm. Ellipsoid Volume:65.12 (PSA density=0.13 ng/mL/mL) CENTRAL GLAND (Central and Transition Zones/CZ+TZ): Multiple bilateral, heterogenous appearing hypertrophic stromal nodules, without suspicious lesion. M edian lobe hypertrophy with protrusion into the base of the bladder. (PI-RADS 2) PERIPHERAL ZONE (PZ): Bilateral linear, indistinct wedgelike areas of low ADC, and low T2 signal, No evidence of masslike a bnormality, or localized perfusional hypervascularity, to further suggest a focus of clinically signi ficant prostate cancer. (PI-RADS 2) SEMINAL VESICLES (SV): Symmetric and unremarkable. PERIPROSTATIC TISSUES: Unremarkable. LYMPH NODES: No enlarged pelvic lymph node. REMAINING PELVIS: Bladder wall is within normal limits given distention. No abnormal free or organized intrapelvic fluid collection. No pathologic bowel dilation or mural thickening. Colonic diverticula are present. No hernia visualized OSSEOUS STRUCTURES: No suspicious osseous abnormality. IMPRESSION: 1. No specific features for high-risk prostate cancer. Maximum PI-RADS score: 2. 2. Moderate BPH, estimated gland volume 65.12 mL. 3. No suspicious osseous lesion. No lymphadenopathy. No evidence of prostate adenocarcinoma involving the periprostatic tissues. [facility], , 02/25/2024 8:55 AM
== END | disposition home or self-care (01) ==
LOC: RADMRIMAIN 06:58
PROVIDERS: ATTEND Urology
DX: N40.0 Benign prostatic hyperplasia without lower urinary tract symptoms (principal); R97.20 Elevated prostate specific antigen [PSA]
CPT/HCPCS: 72197; A9585

== ENCOUNTER → 2024-03-01 | Outpatient (CLI) | payer OTHER | END | disposition home or self-care (01) | LOC: LABPAT 12:23 | PROVIDERS: ATTEND Orthopaedic Surgery | DX: Z01.812 Encounter for preprocedural laboratory examination (principal); M17.11 Unilateral primary osteoarthritis, right knee; Z22.322 Carrier or suspected carrier of Methicillin resistant Staphylococcus aureus | CPT/HCPCS: 87070 ==

== ENCOUNTER 2024-04-20 08:11 | Observation (INO) | payer OTHER ==
--- NOTE | 2024-04-19 08:20 | P.HPOR ---
History of Present Illness H&P Date: 04/19/24 Chief Complaint: Right knee pain The patient is a 73-year-old male who presents with progressive right knee pain for the past 2 years. He notes pain with any bearing activities. He notes his knee gives out on him. He does use a cane. He has tried medications in addition to injections without much relief. He notes daily pain that limits him. 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 Last Myocardial Infarction Date:: August 2008,2016,2020 History of Any Multi-Drug Resistant Organisms: None Reported Past Surgical History: Bowel Resection, Heart Catheterization, Heart Catheterization With Stent, Hernia Repair, Orthopedic Surgery, Prostate Surgery, Tonsillectomy Additional Past Surgical History / Comment(s): 4 heart stents, elbow surgery, colonoscopy, EGD, hemorroidectomy, TURP-had infection post op causing sepsis then large intestine and part of small intestine removed, incisional hernia repair Past Anesthesia/Blood Transfusion Reactions: No Reported Reaction Additional Past Anesthesia/Blood Transfusion Reaction / Comment(s): 10 previous blood transfusions, no problems with infusions. Date of Last Stent Placement:: 2020? Smoking Status: Former smoker - Past Family History Mother History Unknown: Yes Family Medical History: Cancer Additional Family Medical History / Comment(s): 93 yrs old still living, breast CA Father Family Medical History: Hearing Disorder / Deafness Additional Family Medical History / Comment(s): Father is deaf. He is 95 yrs old. Medications and Allergies Home Medications Medication Instructions Recorded Confirmed Type Nitroglycerin Sl Tabs [Nitrostat] 0.4 mg SL Q5M PRN 08/18/13 04/16/24 History Aspirin [[place] Aspirin EC] 81 mg PO DAILY 08/18/18 04/16/24 History HYDROcodone/APAP 10-325MG [[place] 1 tab PO QID PRN 08/18/18 04/16/24 History 10-325] Albuterol Sulfate [Albuterol 1 puff INHALATION RT-Q4H PRN 04/26/20 04/16/24 History Sulfate Hfa] Atorvastatin Calcium [Lipitor] 40 mg PO HS 04/26/20 04/16/24 History hydroCHLOROthiazide [Hydrodiuril] 12.5 mg PO DAILY 04/26/20 04/16/24 History lisinopriL [Zestril] 10 mg PO BID 04/26/20 04/16/24 History Divalproex [Depakote] 750 mg PO BID 07/25/22 04/16/24 History Ezetimibe [Zetia] 10 mg PO DAILY 07/25/22 04/16/24 History Fluticasone Nasal [place] [Flonase 2 spray EA NOSTRIL BID PRN 09/19/23 04/16/24 History Nasal [place]] Gabapentin 300 mg PO HS 09/19/23 04/16/24 History Loratadine [Claritin] 10 mg PO DAILY PRN 09/19/23 04/16/24 History Allergies Allergy/AdvReac Type Severity Reaction Status Date / Time fentanyl Allergy Rash/Hives Verified 04/16/24 08:47 isosorbide Allergy DIZZINESS, Verified 04/16/24 08:47 Severe HEADache ranolazine Allergy WEAKNESS Verified 04/16/24 08:47 Physical Examination - Knee right Appearance: effusion Effusion grade: grade 1 Varus alignment in stance: 5 degrees Tenderness with palpation: anterior, medial Pain: throughout ROM Gait: uses cane ROM: extension: -10 degrees ROM: flexion: 90 degrees Crepitus with motion: Yes Strength: extension: 5/5 Strength: flexion: 5/5 Meniscal tests: medial meniscal tests: positive, medial joint line pain: positive Results The patient is a well-developed well-nourished male approximately 5 foot 8, 170 pounds of mesomorphic habitus. HEENT exam is nonfocal, neck is supple. He has painless passive motion of the right hip. Straight leg raise is negative. On the right knee, he is tender about the medial joint line. Collaterals are stable, Michell's negative, Brooks's is equivocal. His distal neurovascular exam appears intact in the right lower extremity. - Diagnostic results Knee x-ray: image reviewed (X-rays of the right knee obtained the office show severe medial compartment narrowing.) Assessment and Plan Assessment: Right knee severe medial compartment osteoarthrosis Plan: I talked to the patient at length regarding his condition along with treatment options. At this point he is quite symptomatic having pain and mechanical symptoms related to his right knee osteoarthrosis despite conservative measures. After a thorough discussion he opts to proceed with surgery. We will plan to proceed with right total knee arthroplasty. Risks and benefits were discussed at length in layman's terms. We will institute DVT prophylaxis postoperatively.
[~2024-04-20 08:11] MED LIST changes: -Pre Op ABX Message 1 EACH MISC MISCELLANE ONE; +TRANEXAMIC 1,000 MG/100ML-NACL 1,000 MG in SALINE 1 100ML.BAG IVPB PRN
[2024-04-20] MEDS: LACTATED RINGERS 1,000 ML IV SCH (08:55)
[2024-04-20] MEDS: IV FLUID CONTINUATION 1,000 ML IV ONE (08:55)
[2024-04-20] MEDS: ACETAMINOPHEN TAB 500 MG TAB PO PRN (09:02)
[2024-04-20] MEDS: ONDANSETRON 4 MG/2 ML VIAL IVP ONE (09:03)
[2024-04-20] MEDS: MELOXICAM 7.5 MG TAB PO PRN (09:03)
[2024-04-20] MEDS: DEXAMETHASONE SOD PHOSPHATE 4 MG/ML 1 ML VIAL IV ONE (09:04)
[2024-04-20] MEDS: MIDAZOLAM 2 MG/2 ML VIAL IV ONE (09:15)
[2024-04-20] MEDS ORDERED: TRANEXAMIC 1,000 MG/100ML-NACL PREMIX BAG ONE (10:02)
[2024-04-20] MEDS ORDERED: MIDAZOLAM 2 MG/2 ML VIAL ONE (10:02)
[2024-04-20] MEDS ORDERED: ePHEDrine 50 MG/ML 1 ML VIAL ONE (10:02)
[2024-04-20] MEDS ORDERED: DEXAMETHASONE SOD PHOSPHATE 4 MG/ML 1 ML VIAL ONE (10:02)
[2024-04-20] MEDS ORDERED: ROPIVACAINE 5 MG/ML 30 ML VIAL ONE (10:02)
[2024-04-20] MEDS ORDERED: PROPOFOL 10 MG/ML 20 ML VIAL IV ONE (10:02)
[2024-04-20] MEDS: ceFAZolin 1,000 MG in SODIUM CHLORIDE 0.9% 1,000 ML IRRIGATION ONE (10:38)
--- NOTE | 2024-04-20 10:41 | P.ANPRN ---
Procedure Note - Anesthesia - Nerve Block Performed Right [place] Single Time Out Performed: Yes Date of Procedure: 04/20/24 Procedure Start Time: Procedure Stop Time: Location of Patient: PreOp Indication: Acute Post-Operative Pain, Requested by Surgeon Sedation Type: Sedate with meaningful contact maintained Preparation: Sterile Prep Position: Supine Needle Types: [place]ajunk Needle Gauge: 21 Ultrasound used to visualize needle placement: Yes Ultrasound used to observe medication spread: Yes Blood Aspirated: No Pain Paresthesia on Injection Noted: No Resistance on Injection: Normal Image Stored and Saved: Yes Events: Uneventful and Well Tolerated (Ropivacaine 0.5% 20 cc plus dexamethasone 4 mg)
--- NOTE | 2024-04-20 10:41 | P.ANPRN ---
Procedure Note - Anesthesia - Nerve Block Performed Right Adductor Canal Infusion Time Out Performed: Yes Date of Procedure: 04/20/24 Procedure Start Time: : Procedure Stop Time: Location of Patient: PreOp Indication: Acute Post-Operative Pain, Requested by Surgeon Sedation Type: Sedate with meaningful contact maintained Preparation: Sterile Prep Position: Supine Catheter: Indwelling Needle Types: [place] Needle Gauge: 21 Ultrasound used to visualize needle placement: Yes Ultrasound used to observe medication spread: Yes Blood Aspirated: No Pain Paresthesia on Injection Noted: No Resistance on Injection: Normal Image Stored and Saved: Yes Events: Uneventful and Well Tolerated (Ropivacaine 0.5% 20 cc plus dexamethasone 4 mg)
[2024-04-20] MEDS ORDERED: HYDROmorphone 0.5 MG/0.5 ML SYRINGE IVP PRN (11:31)
[2024-04-20] MEDS ORDERED: MAGNESIUM HYDROXIDE 2,400 MG/30 ML CUP PO PRN (11:31)
[2024-04-20] MEDS ORDERED: hydrOXYzine pamoate 25 MG CAP PO PRN (11:31)
[2024-04-20] MEDS ORDERED: ONDANSETRON 4 MG/2 ML VIAL IVP PRN (11:31)
[2024-04-20] MEDS ORDERED: NALOXONE 0.4 MG/ML 1 ML VIAL IV PRN (11:31)
--- NOTE | 2024-04-20 11:48 | P.OP ---
Date of Procedure: 04/20/24 Preoperative Diagnosis: Right knee severe tricompartmental osteoarthrosis Postoperative Diagnosis: Same Procedure(s) Performed: Right total knee arthroplastycementedcruciate retaining Implants: DePuy attune size 7 cemented femoral component, size 6 cemented tibial component, 10 mm articular surface, 35 mm cemented patellar component. This is a cruciate retaining implant. Anesthesia: regional, spinal Surgeon: Pardeep Peñaloza Rn Hemodialysis Charge #1: Neo Elaine Estimated Blood Loss (ml): 50 Pathology: none sent Condition: stable Disposition: PACU Indications for Procedure: The patient is a 73-year-old male who presents with progressive right knee pain secondary to osteoarthrosis despite conservative measures. A discussion of the risks and benefits of operative intervention versus continued conservative measures was made with the patient. He opted to proceed with surgery. Operative risks include infection, neurovascular injury, development of blood clots, fracture, possible component loosening/failure and possible need for subsequent procedures was discussed. Informed consent was obtained. Operative Findings: As below Description of Procedure: The patient was brought to the operating room, and after induction of spinal anesthesia the right lower extremity was prepped and draped in a normal fashion. The tourniquet was inflated to 270 mmHg. A longitudinal incision extending 3 finger breaths above the superior pole of the patella extending to the medial aspect the tibial tubercle was then made. The skin and subcutaneous tissues were divided sharply. Electrocautery was used for hemostasis. A medial parapatellar arthrotomy was then performed. The medial soft tissues to include the superficial and deep portions of the medial collateral ligament as well as the medial hamstring tendons were elevated subperiosteally. The proximal medial tibia osteophytes were carefully removed. The patella was everted. The knee was flexed. A portion of the retropatellar fat pad was excised sharply. The anterior cruciate ligament was sacrificed. A starting hole was made in the distal femur 1 cm anterior to the posterior cruciate origin. An intramedullary femoral guide was gently inserted planning on 5 valgus distal cut with 9 mm distal resection. The cutting block was pinned in place. The distal cut was then made. The posterior referencing sizing guide was utilized. 3 of external rotation was built into the system and verified off the trans- epicondylar axis and the posterior condyles. I felt size 7 was most appropriate. The cutting block was pinned in place. The anterior, posterior, and chamfer cuts were then made. The bone fragments were removed. A sulcus cut was then made with the appropriate guide. The trial size 7 femoral component was then placed and was fully seated. There was good anterior to posterior and medial to lateral fit. The distal peg holes were then drilled. The trial component was then removed. Attention was then paid towards preparing the proximal tibia. An extra medullary guide was utilized in line with the tibial shaft and second metatarsal distally. A 7 posterior slope was planned. I planned on 2 mm resection from the medial compartment. The cutting block was pinned in place. The proximal tibial cut was then made. The bone was removed in one fragment. The remnants of the medial and lateral menisci were excised the capsule junction with electrocautery. The tibia sized most appropriately at size 6. The posterior osteophytes off the distal femur were carefully removed with a curved osteotome. The trial tibial and femoral components were placed along with a 10 millimeters articular surface. I was able to obtain full flexion and extension with good stability with varus and valgus stress. After several flexion and extension cycles, the tibial rotation was marked with electrocautery in line with the medial one third of the tibial tubercle. Attention was then paid towards preparing the patella. A patella reamer was utilized taking this down to 14 mm of bone stock. A good flush cut was made. The patella sized most appropriately at 35 millimeters. The peg holes were then drilled. The trial component was placed. The knee was taken through a range of motion. I had good patellofemoral tracking with no hands technique. The trial components were then removed. The tibia was prepared in the appropriate rotation with appropriate drill and keel punch. The flexion and extension gaps were checked and felt to be symmetric. The bony surfaces were prepared with pulsatile lavage and dried. The deep tibial component was then cemented in place and was fully seated. Excess cement was removed. The femoral component was cemented in place and was fully seated. Again excess cement was removed. The trial 10 millimeters surface was then inserted in the knee was put in full extension. The patella component was cemented in place. After the cement had sufficiently hardened, the knee was again taken through a range of motion. Again there was good stability in flexion and extension with varus and valgus stress. The trial articular surface was then removed. The final articular surface was placed and was impacted. Care was taken to avoid any soft tissue interposition. Pulsatile lavage was again utilized. The tourniquet was deflated with approximately 50 minutes total tourniquet time. There was minimal drainage therefore a deep drain was not placed. The medial parapatellar arthrotomy was then closed with #2 Ethibond suture. The subcutaneous tissues we re reapproximated interrupted 2-0 Vicryl sutures. The skin was reapproximated with 3-0 subarticular strata fix suture. Skin tape and adhesive was applied. A sterile dressing was applied. The patient was then awoken from sedation and transferred to recovery room in good condition. Blood loss was estimated at 50 milliliters. No complications were incurred. Sponge and needle counts were correct at the end the case. Neo DEL CID assisted during the major components this case to include exposure, bone resection, and implantation.
[2024-04-20] MEDS: ROPIVACAINE 1,100 MG, SODIUM CHLORIDE 0.9% 500 ML 330 ML, EMPTY PAIN BALL 1 EACH MISCELLANE PRN (12:13)
--- NOTE | 2024-04-20 12:16 | XR ---
EXAMINATION TYPE: XR knee limited RT DATE OF EXAM: 04/20/2024 COMPARISON: NONE CLINICAL INDICATION: Male, 73 years old with history of Evaluation for Postop abnormality and alignme nt; TECHNIQUE: 2 views FINDINGS: Images show placement of right total knee arthroplasty. Both distal femoral and proximal ti bial components of the prosthesis are well seated without periprosthetic fracture. Alignment grossly anatomic. Anterior soft tissue swelling with scattered soft tissue air as well as intra-articular air related to recent operation. IMPRESSION: Uncomplicated postoperative appearance right total knee arthroplasty. [facility], Workstation: [facility], 04/20/2024 12:13 PM
--- NOTE | 2024-04-20 16:02 | P.CONS ---
History of Present Illness - Reason for Consult Consult date: 04/20/24 - History of Present Illness History of present illness; 73 year old M with PMH of hypertension, hyperlipidemia, seizure disorder and history of extensive gastric surgeries, who presented to the hospital for scheduled total right knee replacement. He has had progressive right knee pain over the past 2 years and describes having had pain with any weightbearing activities. Noting periods of time in which his knee would give out on him. Patient utilizes a cane at home. Patient is now postop with no known surgical complications. Patient is sitting up in bed resting with no complaints of pain. Initial lab workup was not completed before surgery today. X-ray of the right knee following surgery showed uncomplicated postoperative appearance right total knee arthroplasty. REVIEW OF SYSTEMS: All systems reviewed, pertinent positives and negatives noted in HPI. All other symptoms are negative. PHYSICAL EXAMINATION: Vitals reviewed GENERAL: No acute distress. Well developed, well nourished. HEENT: Pupils are round and equally reacting to light. EOMI. No scleral icterus. Normocephalic, atraumatic. CARDIOVASCULAR: S1 and S2 present. No murmurs, rubs, or gallops. PULMONARY: Chest is clear to auscultation, no wheezing, rhonchi, or crackles. ABDOMEN: Soft, nontender, nondistended, normoactive bowel sounds. No palpable organomegaly. MUSCULOSKELETAL: No apparent joint swelling and deformities. EXTREMITIES: No apparent cyanosis, clubbing, or pedal edema. Right leg is wrapped in an Aneudy bandage from slightly above the knee to the toes of the foot. No noted edema, erythema or pain near the surgical site. Dorsalis pedis pulse noted. Capillary refill < 2 seconds. NEUROLOGICAL: The patient is alert and oriented x3, Gross neurological examination did not reveal any focal deficits. 5/5 strength bilateral UE and LE. SKIN: No apparent rashes. Assessment and plan 73 year old M with PMH of hypertension, hyperlipidemia, seizure disorder and history of extensive gastric surgeries, who presented to the hospital for scheduled total right knee replacement. Chronic Medical Conditions #Hypertension -Resume home Lisinopril lisinopril 10 mg twice daily and hydrochlorothiazide 12.5 mg daily #Hyperlidemia -Resume home Atorvastatin 40 mg daily -Resume home Zetia 10 mg daily -Patient takes 81 mg daily aspirin at home, has been held for the past ~5 days prior to surgery - will continue to hold for now #Seizure disorder -States his most recent seizure was on April 27, 2020 -Patient has been maintained on Depakote 750 mg twice daily since that time -Resume patient's home Depakote 700 mg twice daily #Right total knee replacement -Pain management, antibiotics and DVT prophylaxis per primary surgical team F: IV LR 20 cc/hr E: Replete as needed N: Heart healthy diet DVT ppx: per primary surgical team Code status: Full code Patient is stable from medical stand point Follow up CBC Dictation was produced using [employer] dictation software. Please excuse any grammatical, word or spelling errors. 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 Last Myocardial Infarction Date:: August 2008,2016,2020 History of Any Multi-Drug Resistant Organisms: None Reported Past Surgical History: Bowel Resection, Heart Catheterization, Heart Catheterization With Stent, Hernia Repair, Orthopedic Surgery, Prostate Surgery, Tonsillectomy Additional Past Surgical History / Comment(s): 4 heart stents, elbow surgery, colonoscopy, EGD, hemorroidectomy, TURP-had infection post op causing sepsis then large intestine and part of small intestine removed, incisional hernia repair Past Anesthesia/Blood Transfusion Reactions: No Reported Reaction Additional Past Anesthesia/Blood Transfusion Reaction / Comm: 10 previous blood transfusions, no problems with infusions. Date of Last Stent Placement:: 2020? Past Psychological History: Anxiety Additional Psychological History / Comment(s): Pt resides with his spouse. He uses a cane to ambulate. He drives. Smoking Status: Former smoker Past Alcohol Use History: Occasional Additional Past Alcohol Use History / Comment(s): Pt started smoking in 1965 and quit in 2008. drinks 3-4 liquor drink a week. Past Drug Use History: Marijuana Additional Drug Use History / Comment(s): occasional marijauna gummie . pt aware not to use 24 hrs before procedure - Past Family History Mother History Unknown: Yes Family Medical History: Cancer Additional Family Medical History / Comment(s): 93 yrs old still living, breast CA Father Family Medical History: Hearing Disorder / Deafness Additional Family Medical History / Comment(s): Father is deaf. He is 95 yrs o ld. Medications and Allergies Home Medications Medication Instructions Recorded Confirmed Type Nitroglycerin Sl Tabs [Nitrostat] 0.4 mg SL Q5M PRN 08/18/13 04/16/24 History Aspirin [[place] Aspirin EC] 81 mg PO DAILY 08/18/18 04/16/24 History HYDROcodone/APAP 10-325MG [[place] 1 tab PO QID PRN 08/18/18 04/16/24 History 10-325] Albuterol Sulfate [Albuterol 1 puff INHALATION RT-Q4H PRN 04/26/20 04/16/24 History Sulfate Hfa] Atorvastatin Calcium [Lipitor] 40 mg PO HS 04/26/20 04/16/24 History hydroCHLOROthiazide [Hydrodiuril] 12.5 mg PO DAILY 04/26/20 04/16/24 History lisinopriL [Zestril] 10 mg PO BID 04/26/20 04/16/24 History Divalproex [Depakote] 750 mg PO BID 07/25/22 04/16/24 History Ezetimibe [Zetia] 10 mg PO DAILY 07/25/22 04/16/24 History Fluticasone Nasal [place] [Flonase 2 spray EA NOSTRIL BID PRN 09/19/23 04/16/24 History Nasal [place]] Gabapentin 300 mg PO HS 09/19/23 04/16/24 History Loratadine [Claritin] 10 mg PO DAILY PRN 09/19/23 04/16/24 History Allergies Allergy/AdvReac Type Severity Reaction Status Date / Time fentanyl Allergy Rash/Hives Verified 04/20/24 08:46 isosorbide Allergy DIZZINESS, Verified 04/20/24 08:46 Severe HEADache ranolazine Allergy WEAKNESS Verified 04/20/24 08:46 Physical Exam Vitals: Vital Signs Temp Pulse Pulse Resp BP Pulse Ox 04/20/24 14:10 97.6 F 73 17 142/84 95 04/20/24 13:49 72 17 134/78 95 04/20/24 13:35 76 18 136/81 95 04/20/24 13:20 75 17 131/71 95 04/20/24 13:05 73 18 143/82 94 L 04/20/24 12:50 59 L 17 143/74 94 L 04/20/24 12:35 70 18 136/80 94 L 04/20/24 12:20 73 16 135/74 97 04/20/24 12:05 72 17 138/69 98 04/20/24 11:50 97 F L 73 16 122/75 95 04/20/24 09:33 52 L 12 119/65 96 04/20/24 08:51 97.4 F L 60 14 125/58 94 L Intake and Output 04/20/24 04/20/24 04/20/24 06:59 14:59 22:59 Intake Total 751 Output Total 50 Balance 701 Intake: IV 751 Output: Estimated Blood Loss 50 Other: Weight 79.6 kg
[2024-04-20] MEDS: HYDROmorphone 0.5 MG/0.5 ML SYRINGE IVP PRN (17:28)
[2024-04-20] MEDS: HYDROcodone/APAP 10-325MG 1 EACH TAB PO PRN (18:38)
[2024-04-20] MEDS: lisinopriL 10 MG TAB PO SCH (21:12)
[2024-04-20] MEDS: GABAPENTIN 300 MG CAP PO SCH (21:12)
[2024-04-20] MEDS: ATORVASTATIN 40 MG TAB PO SCH (21:12)
[2024-04-20] MEDS: SENNOSIDES-DOCUSATE SODIUM 1 EACH TAB PO SCH (21:12)
[2024-04-20] MEDS: DIVALPROEX 250 MG TABLET.DR PO SCH (21:17)
[2024-04-21] MEDS: hydroCHLOROthiazide 12.5 MG CAP PO SCH (08:18)
[2024-04-21] MEDS: EZETIMIBE 10 MG TAB PO SCH (08:18)
[2024-04-21] MEDS: RIVAROXABAN 10 MG TAB PO SCH (08:18)
[2024-04-21 08:52] LABS: Basophils # (A) 0.01 X 10*3/uL (0.00-0.10); Basophils % (A) 0.1 %; Eosinophils # (A) 0 X 10*3/uL (0.04-0.35); Eosinophils % (A) 0 %; HCT 37.6 % (39.6-50.0); HGB 12.2 g/dL (13.0-17.0); Lymphocytes # (A) 0.85 X 10*3/uL (0.90-5.00); Lymphocytes % (A) 6.5 %; MCH 29.2 pg (27.0-32.0); MCHC 32.4 g/dL (32.0-37.0); Mean Platelet Volume 11.3 FL (9.5-12.2); Monocytes % (A) 5.4 %; NRBC Per 100 WBC 0 X 10*3/uL (0.00-0.01); Neutrophils # (A) 11.44 X 10*3/uL (1.80-7.70); Neutrophils % (A) 87.7 %; Platelet Count 117 X 10*3/uL (140-440); RBC 4.18 X 10*6/uL (4.40-5.60); RDW 14.3 % (11.5-14.5); WBC 13.04 X 10*3/uL (4.50-10.00)
--- NOTE | 2024-04-21 11:38 | P.PN ---
Progress Note - Text 04/21/24 648am 73-year-old male status post total knee replacement. Patient has an On-Q pump with a solution running 8 cc an hour with a VAS of 6 pain is predominantly located posteriorly and on the sides. Dressing clean dry and intact. Plan to continue On-Q pump infusion
[2024-04-21] MEDS: oxyCODONE-APAP 5-325MG 1 EACH TAB PO PRN (11:46)
--- NOTE | 2024-04-21 11:49 | P.PN ---
Subjective Progress Note Date: 04/21/24 Principal diagnosis: Right knee osteoarthritis Patient was seen at bedside this morning lying in the semi-, position with dressing over right knee and ice over the right knee. Patient says he did work with therapy this morning and walked down the hallway and did perform the stai rs. Patient says he was in a lot of pain and did have a difficult time walking back to the bed. Patient hoping to stay 1 more night for additional pain control and therapy. Patient says he has been urinating since surgery without issue. Patient denies any other issues at this time. Objective - Vital Signs Vital signs: Vital Signs Temp 97.9 F 04/21/24 07:09 Pulse 57 L 04/21/24 07:09 Resp 18 04/21/24 07:09 BP 106/63 04/21/24 07:09 Pulse Ox 91 L 04/21/24 07:09 FiO2 Intake & Output 04/20/24 04/21/24 04/21/24 18:59 06:59 18:59 Intake Total 751 Output Total 50 400 Balance 701 -400 Weight 79.6 kg Intake: IV 751 Output: Urine 400 Straight 400 Estimated Blood Loss 50 Other: Voiding Method Toilet # Voids 3 # Bowel Movements 2 - Exam Right knee: Incision is clean, dry, and intact. The exofin fusion tape is in good condition. There is minimal soft tissue swelling and ecchymosis surrounding the medial and lateral aspects of the incision. Calf is soft, no tenderness with palpation. Plantar flexion, dorsiflexion, EHL, FHL are intact. Sensory exam to light touch throughout the extremity is intact, dorsal pedis pulses 2+. - Labs CBC & Chem 7: 04/21/24 03:25 Labs: Abnormal Lab Results - Last 24 Hours (Table) 04/21/24 Range/Units 03:25 WBC 13.04 H (4.50-10.00) X 10*3/uL RBC 4.18 L (4.40-5.60) X 10*6/uL Hgb 12.2 L (13.0-17.0) g/dL Hct 37.6 L (39.6-50.0) % Plt Count 117 L (140-440) X 10*3/uL Neutrophils # 11.44 H (1.80-7.70) X 10*3/uL Lymphocytes # 0.85 L (0.90-5.00) X 10*3/uL Eosinophils # 0 L (0.04-0.35) X 10*3/uL Assessment and Plan Assessment: 1. Right knee osteoarthritis -Postop day 1 status post right total knee arthroplasty Plan: 1. Right knee osteoarthritis -right total knee arthroplasty form yesterday, 04/12/2024. Patient stable bedside this morning. Patient to stay 1 more night for additional pain control and therapy. Patient to take Percocet 5 mg / 325 mg as needed for increased pain. Vistaril scheduled every 6 hours. We will continue to follow patient during stay in hospital. Plan to discharge home tomorrow with health services. 2. Appreciate medical management 3. Pain management -[place]; Percocet; Vistaril 4. GI prophylaxis -senna 5. DVT prophylaxis -Xarelto in hospital 6. PT/OT -weightbearing as tolerated with walker 7. Encourage incentive spirometer use 8. Discharge planning -plan for discharge home tomorrow with health services Time with Patient: Less than 30
[2024-04-21] MEDS: hydrOXYzine pamoate 25 MG CAP PO SCH (12:54)
--- NOTE | 2024-04-21 16:11 | P.PN ---
Subjective Progress Note Date: 04/21/24 History of present illness; 73 year old M with PMH of hypertension, hyperlipidemia, seizure disorder and hi story of extensive gastric surgeries, who presented to the hospital for scheduled total right knee replacement. He has had progressive right knee pain over the past 2 years and describes having had pain with any weightbearing activities. Noting periods of time in which his knee would give out on him. Patient utilizes a cane at home. Patient is now postop with no known surgical complications. Patient is sitting up in bed resting with no complaints of pain. 04/21/24 - Patient seen and examined at bedside this morning. States he is feeling well however notes some pain along the sides of his right knee. Patient is medically optimized for discharge, however per the surgery team's request leonard megan will stay another night for additional pain control and additional work with physical therapy. He has no acute complaints at this time. REVIEW OF SYSTEMS: All systems reviewed, pertinent positives and negatives noted in HPI. All other symptoms are negative. PHYSICAL EXAMINATION: Vitals reviewed GENERAL: No acute distress. Well developed, well nourished. HEENT: Pupils are round and equally reacting to light. EOMI. No scleral icterus. Normocephalic, atraumatic. CARDIOVASCULAR: S1 and S2 present. No murmurs, rubs, or gallops. PULMONARY: Chest is clear to auscultation, no wheezing, rhonchi, or crackles. ABDOMEN: Soft, nontender, nondistended, normoactive bowel sounds. No palpable organomegaly. MUSCULOSKELETAL: No apparent joint swelling and deformities. EXTREMITIES: No apparent cyanosis, clubbing, or pedal edema. Right leg is wrapped in an Aneudy bandage from slightly above the knee to the toes of the foot. No noted edema, erythema or pain near the surgical site. Dorsalis pedis pulse noted. Capillary refill < 2 seconds. NEUROLOGICAL: The patient is alert and oriented x3, Gross neurological examination did not reveal any focal deficits. 5/5 strength bilateral UE and LE. SKIN: No apparent rashes. Assessment and plan 73 year old M with PMH of hypertension, hyperlipidemia, seizure disorder and history of extensive gastric surgeries, who presented to the hospital for scheduled total right knee replacement. Chronic Medical Conditions #Hypertension -Resume home Lisinopril lisinopril 10 mg twice daily and hydrochlorothiazide 12.5 mg daily #Hyperlidemia -Resume home Atorvastatin 40 mg daily -Resume home Zetia 10 mg daily -Patient takes 81 mg daily aspirin at home, has been held for the past ~5 days prior to surgery - will continue to hold for now #Seizure disorder -States his most recent seizure was on April 27, 2020 -Patient has been maintained on Depakote 750 mg twice daily since that time -Resume patient's home Depakote 700 mg twice daily #Leukocytosis, total right knee arthroplasty #Acute blood loss anemia, total right knee arthroplasty -WBCs 13.04 -Hemoglobin 12.2 -Continue to monitor CBC in the morning #Right total knee replacement -Pain management, antibiotics and DVT prophylaxis per primary surgical team F: IV LR 20 cc/hr E: Replete as needed N: Heart healthy diet DVT ppx: per primary surgical team Code status: Full code Patient is medically optimized for discharge. Will continue to follow for the duration of the patient's stay. Thank you very much for this consult! Dictation was produced using [employer] dictation software. please excuse any grammatical, word or spelling errors. I saw and evaluated the patient during the vadlivia and critical portions of this encounter, and discussed the case in detail with the resident author of this note, I agree with the Assessment and Plan, and my changes, if any, are highlighted below. Objective - Vital Signs Vital signs: Vital Signs Temp 97.8 F 04/21/24 01:49 Pulse 65 04/21/24 05:19 Resp 18 04/21/24 05:19 BP 114/66 04/21/24 05:19 Pulse Ox 95 04/21/24 05:19 FiO2 Intake & Output 04/20/24 04/20/24 04/21/24 06:59 18:59 06:59 Intake Total 751 Output Total 50 400 Balance 701 -400 Weight 79.6 kg Intake: IV 751 Output: Urine 400 Straight 400 Estimated Blood Loss 50 Other: Voiding Method Toilet # Voids 3 # Bowel Movements 2 - Labs CBC & Chem 7: 04/21/24 03:25
[2024-04-22 08:35] LABS: Basophils # (A) 0.03 X 10*3/uL (0.00-0.10); Basophils % (A) 0.3 %; Eosinophils # (A) 0.02 X 10*3/uL (0.04-0.35); Eosinophils % (A) 0.2 %; HCT 33.4 % (39.6-50.0); HGB 10.7 g/dL (13.0-17.0); Lymphocytes # (A) 2.51 X 10*3/uL (0.90-5.00); Lymphocytes % (A) 26.5 %; MCH 29.2 pg (27.0-32.0); MCV 91.3 FL (80.0-97.0); Mean Platelet Volume 11.3 FL (9.5-12.2); Monocytes # (A) 1.49 X 10*3/uL (0.20-1.00); Monocytes % (A) 15.8 %; NRBC Per 100 WBC 0 X 10*3/uL (0.00-0.01); Neutrophils # (A) 5.36 X 10*3/uL (1.80-7.70); Neutrophils % (A) 56.7 %; Platelet Count 109 X 10*3/uL (140-440); RBC 3.66 X 10*6/uL (4.40-5.60); RDW 14.7 % (11.5-14.5); WBC 9.46 X 10*3/uL (4.50-10.00)
--- NOTE | 2024-04-22 09:34 | US ---
EXAMINATION TYPE: US venous doppler duplex LE RT DATE OF EXAM: 04/22/2024 9:07 AM COMPARISON: NONE CLINICAL INDICATION: Male, 73 years old with history of right calf pain. Recent total right knee surg malik. No hx of DVT. Patient does not take blood thinners. TECHNIQUE: The lower extremity deep venous system is examined utilizing real time linear array sonog shaye with graded compression, color doppler sonography, and spectral doppler. SIDE PERFORMED: Right FINDINGS: VESSELS IMAGED: Common Femoral Vein Deep Femoral Vein Greater Saphenous Vein * Femoral Vein Popliteal Vein - limited (* superficial vessels) Right Leg: Color flow seen in CFV, GSV, femoral vein, and DFV. Limited access to scan behind the kne e due to patient's recent surgery. Unable to visualize popliteal vein in grayscale transverse imaging . Possible minimal flow seen in popliteal vein at mid. Some venous waveform seen on spectral doppler. Possible clot versus limitations within popliteal vein. Limited color flow seen. Peroneal veins not seen. IMPRESSION: 1. Very limited assessment behind the knee due to patient's recent surgery. The mid popliteal vein in particular is limited and minimal flow is seen here by color and Doppler assessment. Unable to exclu de some nonocclusive DVT here at this time. Follow-up can be performed. No occlusive DVT identified a t this time. 2. No DVT identified in the right lower extremity imaged from the groin to the lower thigh. [facility], , 04/22/2024 9:32 AM
--- NOTE | 2024-04-22 12:21 | P.PN ---
Subjective Progress Note Date: 04/22/24 Principal diagnosis: Right knee osteoarthritis Patient was seen at bedside this morning lying in the semi-recumbent position with dressing over right knee and ice over the right knee. Patient says he did work with therapy this morning but was unable to do stairs even though he did do them yesterday. Patient says he was in a lot of pain and did have a difficult time walking back to the bed. Patient says he was having a lot of pain in the calf and did have ultrasound performed. Radiologist read the results is inconclusive with possible blockage of flow versus being inconclusive due to the recent surgery. Medicine has been notified. Patient says he has been urinating since surgery without issue. Patient denies any other issues at this time. Objective - Vital Signs Vital signs: Vital Signs Temp 98.5 F 04/22/24 08:00 Pulse 67 04/22/24 08:00 Resp 16 04/22/24 08:00 BP 99/62 04/22/24 08:00 Pulse Ox 90 L 04/22/24 08:00 FiO2 Intake & Output 04/21/24 04/22/24 04/22/24 18:59 06:59 18:59 Intake Total 960 Balance 960 Intake: Oral 960 Other: Voiding Method Toilet Toilet # Voids 1 2 # Bowel Movements 2 - Exam Right knee: Incision is clean, dry, and intact. The exofin fusion tape is in good condition. There is minimal soft tissue swelling and ecchymosis surrounding the medial and lateral aspects of the incision. Calf is soft, with some tenderness with palpation. Plantar flexion, dorsiflexion, EHL, FHL are intact. Sensory exam to light touch throughout the extremity is intact, dorsal pedis pulses 2+. - Labs CBC & Chem 7: 04/22/24 05:40 Labs: Abnormal Lab Results - Last 24 Hours (Table) 04/22/24 Range/Units 05:40 RBC 3.66 L (4.40-5.60) X 10*6/uL Hgb 10.7 L (13.0-17.0) g/dL Hct 33.4 L (39.6-50.0) % RDW 14.7 H (11.5-14.5) % Plt Count 109 L (140-440) X 10*3/uL Immature Gran # 0.05 H (0.00-0.04) X 10*3/uL Monocytes # 1.49 H (0.20-1.00) X 10*3/uL Eosinophils # 0.02 L (0.04-0.35) X 10*3/uL Assessment and Plan Assessment: 1. Right knee osteoarthritis -Postop day 2 status post right total knee arthroplasty Plan: 1. Right knee osteoarthritis -right total knee arthroplasty performed 04/12/2024. Patient stable at bedside this morning. Patient to stay 1 more night for additional pain control and therapy. Patient to take Percocet 7.5 mg / 325 mg as needed for increased pain. Vistaril scheduled every 6 hours. We will continue to follow patient during stay in hospital. Plan to discharge home tomorrow with health services. 2. Appreciate medical management 3. Pain management -[place]; Percocet; Vistaril 4. GI prophylaxis -senna 5. DVT prophylaxis -Xarelto in hospital 6. PT/OT -weightbearing as tolerated with walker 7. Encourage incentive spirometer use 8. Discharge planning -plan for discharge home tomorrow with health services Time with Patient: Less than 30
[2024-04-22] MEDS: oxyCODONE-APAP 7.5-325MG 1 EACH TAB PO PRN (14:58)
--- NOTE | 2024-04-22 15:05 | P.PN ---
Subjective Progress Note Date: 04/22/24 History of present illness; 73 year old M with PMH of hypertension, hyperlipidemia, seizure disorder and hi story of extensive gastric surgeries, who presented to the hospital for scheduled total right knee replacement. He has had progressive right knee pain over the past 2 years and describes having had pain with any weightbearing activities. Noting periods of time in which his knee would give out on him. Patient utilizes a cane at home. Patient is now postop with no known surgical complications. Patient is sitting up in bed resting with no complaints of pain. 04/21/24 - Patient seen and examined at bedside this morning. States he is feeling well however notes some pain along the sides of his right knee. Patient is medically optimized for discharge, however per the surgery team's request leonard megan will stay another night for additional pain control and additional work with physical therapy. He has no acute complaints at this time. 04/22/24 - Patient seen and examined at bedside this morning. Patient noted to have some new onset pain and tenderness of his right calf. Duplex venous ult rasound of the right lower extremity was completed. Patient endorses having significant pain of the right lower leg. REVIEW OF SYSTEMS: All systems reviewed, pertinent positives and negatives noted in HPI. All other symptoms are negative. PHYSICAL EXAMINATION: Vitals reviewed GENERAL: No acute distress. Well developed, well nourished. HEENT: Pupils are round and equally reacting to light. EOMI. No scleral icterus. Normocephalic, atraumatic. CARDIOVASCULAR: S1 and S2 present. No murmurs, rubs, or gallops. PULMONARY: Chest is clear to auscultation, no wheezing, rhonchi, or crackles. ABDOMEN: Soft, nontender, nondistended, normoactive bowel sounds. No palpable organomegaly. MUSCULOSKELETAL: No apparent joint swelling and deformities. EXTREMITIES: No apparent cyanosis, clubbing, or pedal edema. Bandage noted over knee. Dorsalis pedis pulse noted. Capillary refill <2 seconds. Pain and tenderness to palpation of the right calf with edema and some eryhtema noted. NEUROLOGICAL: The patient is alert and oriented x3, Gross neurological examination did not reveal any focal deficits. 5/5 strength bilateral UE and LE. SKIN: No apparent rashes. New data today: Labs: WBCs 9.46, hemoglobin 10.7, hematocrit 33.4, platelet 109 Imaging: Right lower extremity venous duplex ultrasound which was limited due to patient's recent surgery, unable to exclude some nonocclusive DVT at this time; no occlusive DVT identified at this time in the mid popliteal vein; no DVT identified in the right lower extremity from the groin to the lower thigh Assessment and plan 73 year old M with PMH of hypertension, hyperlipidemia, seizure disorder and history of extensive gastric surgeries, who presented to the hospital for scheduled total right knee replacement. Chronic Medical Conditions #Hypertension -Resume home Lisinopril lisinopril 10 mg twice daily and hydrochlorothiazide 12.5 mg daily #Hyperlidemia -Resume home Atorvastatin 40 mg daily -Resume home Zetia 10 mg daily -Patient takes 81 mg daily aspirin at home, has been held for the past ~5 days prior to surgery - will continue to hold for now #Seizure disorder -States his most recent seizure was on April 27, 2020 -Patient has been maintained on Depakote 750 mg twice daily since that time -Resume patient's home Depakote 700 mg twice daily #Leukocytosis, total right knee arthroplasty - resolved #Acute blood loss anemia, total right knee arthroplasty -WBCs 13.04 => 9.46 -Hemoglobin 12.2 => 10.7 -Continue to monitor CBC in the morning #New onset right calf pain -Duplex venous ultrasound of the right lower extremity ordered -Showed very limited assessment due to the recent surgery however unable to exclude some nonocclusive DVT at this time; however no occlusive DVT identified at this time; no DVT identified in the right lower extremity from the groin to the lower thigh as well -Will consider repeat duplex ultrasound of the right lower extremity if warranted after discussion with the radiologist #Right total knee replacement -Pain management, antibiotics and DVT prophylaxis per primary surgical team F: IV LR 20 cc/hr E: Replete as needed N: Heart healthy diet DVT ppx: per primary surgical team Code status: Full code Will continue to follow for the duration of the patient's stay. Thank you very much for this consult! Dictation was produced using [employer] dictation software. please excuse any grammatical, word or spelling errors. I saw and evaluated the patient during the valdivia and critical portions of this encounter, and discussed the case in detail with the resident author of this note, I agree with the Assessment and Plan, and my changes, if any, are highlighted below. Objective - Vital Signs Vital signs: Vital Signs Temp 97.8 F 04/22/24 02:17 Pulse 52 L 04/22/24 02:17 Resp 16 04/22/24 02:17 BP 82/49 04/22/24 02:17 Pulse Ox 93 L 04/22/24 02:17 FiO2 Intake & Output 04/21/24 04/22/24 04/22/24 18:59 06:59 18:59 Intake Total 960 Balance 960 Intake: Oral 960 Other: Voiding Method Toilet Toilet # Voids 1 2 # Bowel Movements 2 - Labs CBC & Chem 7: 04/22/24 05:40 Labs: Abnormal Lab Results - Last 24 Hours (Table) 04/21/24 Range/Units 03:25 WBC 13.04 H (4.50-10.00) X 10*3/uL RBC 4.18 L (4.40-5.60) X 10*6/uL Hgb 12.2 L (13.0-17.0) g/dL Hct 37.6 L (39.6-50.0) % Plt Count 117 L (140-440) X 10*3/uL Neutrophils # 11.44 H (1.80-7.70) X 10*3/uL Lymphocytes # 0.85 L (0.90-5.00) X 10*3/uL Eosinophils # 0 L (0.04-0.35) X 10*3/uL
[2024-04-23 07:15] VITALS: RESP 18; TEMP 98.4
[2024-04-23 09:07] LABS: HCT 34.5 % (39.6-50.0); HGB 11.4 g/dL (13.0-17.0); MCH 29.5 pg (27.0-32.0); MCV 89.1 FL (80.0-97.0); Mean Platelet Volume 11.1 FL (9.5-12.2); NRBC Per 100 WBC 0 X 10*3/uL (0.00-0.01); Platelet Count 136 X 10*3/uL (140-440); RBC 3.87 X 10*6/uL (4.40-5.60); RDW 14.8 % (11.5-14.5); WBC 10.42 X 10*3/uL (4.50-10.00)
[2024-04-23 09:40] LABS: Basophils # (A) 0.06 X 10*3/uL (0.00-0.10); Basophils % (A) 0.6 %; Eosinophils # (A) 0.07 X 10*3/uL (0.04-0.35); Eosinophils % (A) 0.7 %; Lymphocytes # (A) 2.05 X 10*3/uL (0.90-5.00); Lymphocytes % (A) 19.7 %; Monocytes # (A) 1.66 X 10*3/uL (0.20-1.00); Monocytes % (A) 15.9 %; Neutrophils # (A) 6.53 X 10*3/uL (1.80-7.70); Neutrophils % (A) 62.6 %
--- NOTE | 2024-04-23 09:59 | P.DS ---
Providers Date of admission: 04/20/24 08:12 Expected date of discharge: 04/23/24 Attending physician: Pardeep Peñaloza Consults: 04/20/24 11:31 Consult Physician Routine Consulting Provider: Keysha Ge Consult Reason/Comments: medical management s/p right total knee arthroplasty Do you want consulting provider notified?: Yes Primary care physician: [facility] Hospital Course: Date of admission: 04/20/2024 Date of discharge: 04/23/2024 Admission diagnosis: Right knee osteoarthritis Discharge diagnosis: Same Attending physician: Dr. Peñaloza Surgical procedures: Right total knee arthroplasty Brief history: Patient is a 73-year-old male with a history of progressive primary right knee osteoarthritis. At this point patient has failed conservative treatment measures and has opted to proceed with a elective right total knee arthroplasty. Hospital course: Details of patient's surgery can be found in operative report. Patient tolerated the procedure well and was subsequently transported to orthopedic floor. Patient's orthopeidc and medical care was provided daily. Patient had daily laboratory tests performed for evaluation of overall blood counts. Patient had daily physical therapy to include strengthening range of motion as well as education with walker ambulation. Patient was treated with Xarelto for their postoperative DVT prophylaxis during their inpatient stay. Patient was noted to have a relatively uneventful postoperative course. Patient reported satisfactory pain control with oral pain medications by postoperative day 3. Patient showed satisfactory progress with physical therapy. Patient moved steadily through the program and had no difficulty meeting the goals by postoperative day 3. Given patient's otherwise satisfactory course and having met physical therapy goals, plan is to discharge patient home with health services on postoperative day 3. Discharge condition/disposition: Patient will be discharged home with health services in stable condition. Discharge medications: Instructions are given on resumption of patient's normal daily medications per primary care recommendation, in addition patient will be prescribed Percocet; Vistaril; Eliquis 2.5 mg twice daily. Discharge instructions: 1. Wound care and infection precautions, keep incision dry and covered while showering, no lotions, creams, moisturizers. No soaking, tubs, pools, hottubs. Do not scrub over the incision. 2. Weight-bear as tolerated with walker / cane until follow-up. 3. Ice and elevate when necessary. Do not exceed 20 minutes per hour with ice pack. 4. Utilize compression sleeve until seen at first follow up appointment. 5. Visiting nursing care. 6. Home physical therapy including home CPM. 7. Pain meds and anticoagulants per prescription. 8. Pain medication has potential to cause constipation. Increase oral fluid and fiber intake. Contact primary care provider if you have not had a bowel movement within 48 hours after discharge 9. No anti-inflammatory medication until discussed at first post operative visit, this including Motrin, Aleve, Mobic, Diclofenac. 10. Follow up in office at 2 weeks postop with Messi Sánchez PA-C / Neo Elaine PA-C 11. Follow up with your primary care doctor 7-10 days after discharge. 12. Contact [facility] with any questions, . Assessment: Right knee osteoarthritis Procedures: Right total knee arthroplasty Patient Condition at Discharge: Good Plan - Discharge Summary Discharge Rx Participant: No New Discharge Prescriptions: New Apixaban [Eliquis] 2.5 mg PO BID #60 tab oxyCODONE HCL/ACETAMINOPHEN [Percocet 7.5-325 mg] 1 tab PO Q6HR PRN #24 tab PRN Reason: Pain hydrOXYzine pamoate [Vistaril] 25 mg PO TID PRN #21 cap PRN Reason: Pain No Action Nitroglycerin Sl Tabs [Nitrostat] 0.4 mg SL Q5M PRN PRN Reason: Chest Pain HYDROcodone/APAP 10-325MG [[place] 10-325] 1 tab PO QID PRN PRN Reason: Pain Aspirin [[place] Aspirin EC] 81 mg PO DAILY lisinopriL [Zestril] 10 mg PO BID hydroCHLOROthiazide [Hydrodiuril] 12.5 mg PO DAILY Atorvastatin Calcium [Lipitor] 40 mg PO HS Albuterol Sulfate [Albuterol Sulfate Hfa] 1 puff INHALATION RT-Q4H PRN PRN Reason: Shortness Of Breath Divalproex [Depakote] 750 mg PO BID Ezetimibe [Zetia] 10 mg PO DAILY Fluticasone Nasal [place] [Flonase Nasal [place]] 2 spray EA NOSTRIL BID PRN PRN Reason: Allergy Symptoms Loratadine [Claritin] 10 mg PO DAILY PRN PRN Reason: Allergy Symptoms Gabapentin 300 mg PO HS Discharge Medication List Nitroglycerin Sl Tabs [Nitrostat] 0.4 mg SL Q5M PRN 08/18/13 [History] Aspirin [[place] Aspirin EC] 81 mg PO DAILY 08/18/18 [History] HYDROcodone/APAP 10-325MG [[place] 10-325] 1 tab PO QID PRN 08/18/18 [History] Albuterol Sulfate [Albuterol Sulfate Hfa] 1 puff INHALATION RT-Q4H PRN 04/26/20 [History] Atorvastatin Calcium [Lipitor] 40 mg PO HS 04/26/20 [History] hydroCHLOROthiazide [Hydrodiuril] 12.5 mg PO DAILY 04/26/20 [History] lisinopriL [Zestril] 10 mg PO BID 04/26/20 [History] Divalproex [Depakote] 750 mg PO BID 07/25/22 [History] Ezetimibe [Zetia] 10 mg PO DAILY 07/25/22 [History] Fluticasone Nasal [place] [Flonase Nasal [place]] 2 spray EA NOSTRIL BID PRN 09/19/23 [History] Gabapentin 300 mg PO HS 09/19/23 [History] Loratadine [Claritin] 10 mg PO DAILY PRN 09/19/23 [History] Apixaban [Eliquis] 2.5 mg PO BID #60 tab 04/23/24 [Rx] hydrOXYzine pamoate [Vistaril] 25 mg PO TID PRN #21 cap 04/23/24 [Rx] oxyCODONE HCL/ACETAMINOPHEN [Percocet 7.5-325 mg] 1 tab PO Q6HR PRN #24 tab 04/23/24 [Rx] Follow up Appointment(s)/Referral(s): Neo Elaine PAC [[facility]YSIC[facility] DIRECTOR] - 2 Weeks [facility] [place] [NON-STAFF] - 1 Week Patient Instructions/Handouts: Knee Replacement (GEN) Activity/Diet/Wound Care/Special Instructions: Orthopedic Discharge Instructions: 1. Wound care and infection precautions, keep incision dry and covered while showering, no lotions, creams, moisturizers. No soaking, pools, hot tubs. Do not scrub over incision. 2. Weight-bear as tolerated with walker / cane until follow-up. 3. Ice and elevate when necessary. Do not exceed 20 minutes per hour with ice pack. 4. Utilize compression sleeve until seen at first follow up appointment. 5. Pain meds and anticoagulants per prescription. 6. Pain medication has potential to cause constipation. Increase oral fluid and fiber intake. Contact primary care provider if you have not had a bowel movement within 48 hours after discharge. 7. No anti-inflammatory medication until discussed at first post operative visit, this including Motrin, Aleve, Mobic, Diclofenac. 8. Follow up in office at 2 weeks postop with Messi Sánchez PA-C / Neo Elaine PA-C 9. Follow up with your primary care doctor 7-10 days after discharge. 10. Contact [facility] with any questions, . Keep incision clean, dry, intact. While showering, cover fusion tape with Saran wrap. Keep fusion tape on until follow-up appointment in office in 2 weeks. Discharge Disposition: HOME WITH HOME HEALTH SERVICES
--- NOTE | 2024-04-23 10:01 | P.PN ---
Subjective Progress Note Date: 04/23/24 Principal diagnosis: Right knee osteoarthritis Patient was seen at bedside this morning. His pain is under better control today. He is looking forward to going home today. He does have a walker at home. Patient says he has been urinating since surgery without issue. Patient says he has had a bowel movement as well. Patient denies any other issues at this time. Objective - Vital Signs Vital signs: Vital Signs Temp 98.4 F 04/23/24 07:14 Pulse 84 04/23/24 07:14 Resp 18 04/23/24 07:14 BP 170/90 04/23/24 07:14 Pulse Ox 95 04/23/24 07:14 FiO2 Intake & Output 04/22/24 04/23/24 04/23/24 18:59 06:59 18:59 Other: Voiding Method Toilet # Voids 4 2 - Exam Right knee: Incision is clean, dry, and intact. The exofin fusion tape is in good condition. There is minimal soft tissue swelling and ecchymosis surrounding the medial and lateral aspects of the incision. Calf is soft, with some tenderness with palpation. Plantar flexion, dorsiflexion, EHL, FHL are intact. Sensory exam to light touch throughout the extremity is intact, dorsal pedis pulses 2+. - Labs CBC & Chem 7: 04/23/24 04:24 Labs: Abnormal Lab Results - Last 24 Hours (Table) 04/23/24 Range/Units 04:24 WBC 10.42 H (4.50-10.00) X 10*3/uL RBC 3.87 L (4.40-5.60) X 10*6/uL Hgb 11.4 L (13.0-17.0) g/dL Hct 34.5 L (39.6-50.0) % RDW 14.8 H (11.5-14.5) % Plt Count 136 L (140-440) X 10*3/uL Immature Gran # 0.05 H (0.00-0.04) X 10*3/uL Monocytes # 1.66 H (0.20-1.00) X 10*3/uL Assessment and Plan Assessment: 1. Right knee osteoarthritis -Postop day 3 status post right total knee arthroplasty Plan: 1. Right knee osteoarthritis -right total knee arthroplasty performed 04/12/2024. Patient stable at bedside this morning. Patient to take Percocet 7.5 mg / 325 mg as needed for increased pain. Vistaril scheduled every 6 hours. Patient does have a walker for home. Discharge home today with health services. 2. Appreciate medical management 3. Pain management -[place]; Percocet; Vistaril 4. GI prophylaxis -senna 5. DVT prophylaxis -Xarelto in hospital; going home with Eliquis 2.5 mg twice daily 6. PT/OT -weightbearing as tolerated with walker 7. Encourage incentive spirometer use 8. Discharge planning -discharge home today with health services Time with Patient: Less than 30
[2024-04-23 11:50] VITALS: BP 146/79; PULSE 110
--- NOTE | 2024-04-23 12:24 | P.PN ---
Subjective Progress Note Date: 04/23/24 History of present illness; 73 year old M with PMH of hypertension, hyperlipidemia, seizure disorder and hi story of extensive gastric surgeries, who presented to the hospital for scheduled total right knee replacement. He has had progressive right knee pain over the past 2 years and describes having had pain with any weightbearing activities. Noting periods of time in which his knee would give out on him. Patient utilizes a cane at home. Patient is now postop with no known surgical complications. Patient is sitting up in bed resting with no complaints of pain. 04/21/24 - Patient seen and examined at bedside this morning. States he is feeling well however notes some pain along the sides of his right knee. Patient is medically optimized for discharge, however per the surgery team's request leonard megan will stay another night for additional pain control and additional work with physical therapy. He has no acute complaints at this time. 04/22/24 - Patient seen and examined at bedside this morning. Patient noted to have some new onset pain and tenderness of his right calf. Duplex venous ult rasound of the right lower extremity was completed. Patient endorses having significant pain of the right lower leg. 04/23/24 - Patient seen and examined at bedside this morning. Notes having continued soreness around the right knee as well as in the right calf. However, suspicion for DVT is low. Patient has been ambulating around his room without difficulty. REVIEW OF SYSTEMS: All systems reviewed, pertinent positives and negatives noted in HPI. All other symptoms are negative. PHYSICAL EXAMINATION: Vitals reviewed GENERAL: No acute distress. Well developed, well nourished. HEENT: Pupils are round and equally reacting to light. EOMI. No scleral icterus. Normocephalic, atraumatic. CARDIOVASCULAR: S1 and S2 present. No murmurs, rubs, or gallops. PULMONARY: Chest is clear to auscultation, no wheezing, rhonchi, or crackles. ABDOMEN: Soft, nontender, nondistended, normoactive bowel sounds. No palpable organomegaly. MUSCULOSKELETAL: No apparent joint swelling and deformities. EXTREMITIES: No apparent cyanosis, clubbing, or pedal edema. Bandage noted over knee. Dorsalis pedis pulse noted. Capillary refill <2 seconds. Pain and tenderness to palpation of the right calf with edema and some eryhtema noted. NEUROLOGICAL: The patient is alert and oriented x3, Gross neurological examination did not reveal any focal deficits. 5/5 strength bilateral UE and LE. SKIN: No apparent rashes. New data today: Labs: WBCs 10.42, hemoglobin 11.4, hematocrit 34.5, platelets 136 Assessment and plan 73 year old M with PMH of hypertension, hyperlipidemia, seizure disorder and history of extensive gastric surgeries, who presented to the hospital for scheduled total right knee replacement. Chronic Medical Conditions #Hypertension -Resume home Lisinopril lisinopril 10 mg twice daily and hydrochlorothiazide 12.5 mg daily #Hyperlidemia -Resume home Atorvastatin 40 mg daily -Resume home Zetia 10 mg daily -Patient takes 81 mg daily aspirin at home, has been held for the past ~5 days prior to surgery - will continue to hold for now #Seizure disorder -States his most recent seizure was on April 27, 2020 -Patient has been maintained on Depakote 750 mg twice daily since that time -Resume patient's home Depakote 700 mg twice daily #Leukocytosis, total right knee arthroplasty - resolved #Acute blood loss anemia, total right knee arthroplasty -WBCs 13.04 => 9.46 -Hemoglobin 12.2 => 10.7 -Continue to monitor CBC in the morning #New onset right calf pain -Duplex venous ultrasound of the right lower extremity ordered -Showed very limited assessment due to the recent surgery however unable to exclude some nonocclusive DVT at this time; however no occlusive DVT identified at this time; no DVT identified in the right lower extremity from the groin to the lower thigh as well -Will consider repeat duplex ultrasound of the right lower extremity if warranted after discussion with the radiologist #Right total knee replacement -Pain management, antibiotics and DVT prophylaxis per primary surgical team F: IV LR 20 cc/hr E: Replete as needed N: Heart healthy diet DVT ppx: per primary surgical team Code status: Full code Patient is medically optimized for discharge. Will continue to follow for the duration of the patient's stay. Thank you very much for this consult! Dictation was produced using [employer] dictation software. please excuse any grammatical, word or spelling errors. I saw and evaluated the patient during the valdivia and critical portions of this encounter, and discussed the case in detail with the resident author of this note, I agree with the Assessment and Plan, and my changes, if any, are highlighted below. Venous duplex inconclusive but unlikely DVT. Hopeful plans for discharge home today. Med rec completed. Objective - Vital Signs Vital signs: Vital Signs Temp 98.4 F 04/23/24 07:14 Pulse 84 04/23/24 07:14 Resp 18 04/23/24 07:14 BP 170/90 04/23/24 07:14 Pulse Ox 95 04/23/24 07:14 FiO2 Intake & Output 04/22/24 04/23/24 04/23/24 18:59 06:59 18:59 Other: Voiding Method Toilet # Voids 4 2 - Labs CBC & Chem 7: 04/23/24 04:24 Labs: Abnormal Lab Results - Last 24 Hours (Table) 04/22/24 Range/Units 05:40 RBC 3.66 L (4.40-5.60) X 10*6/uL Hgb 10.7 L (13.0-17.0) g/dL Hct 33.4 L (39.6-50.0) % RDW 14.7 H (11.5-14.5) % Plt Count 109 L (140-440) X 10*3/uL Immature Gran # 0.05 H (0.00-0.04) X 10*3/uL Monocytes # 1.49 H (0.20-1.00) X 10*3/uL Eosinophils # 0.02 L (0.04-0.35) X 10*3/uL
== END 2024-04-23 12:20 | disposition home health service (06) ==
LOC: OR 08:11 → 4SSUR 08:12
PROVIDERS: ADMIT Orthopaedic Surgery; ATTEND Orthopaedic Surgery
DX: M17.11 Unilateral primary osteoarthritis, right knee (principal); D62 Acute posthemorrhagic anemia; I10 Essential (primary) hypertension; E78.5 Hyperlipidemia, unspecified; G40.909 Epilepsy, unspecified, not intractable, without status epilepticus; D72.829 Elevated white blood cell count, unspecified; M79.661 Pain in right lower leg; I25.10 Atherosclerotic heart disease of native coronary artery without angina pectoris; K21.9 Gastro-esophageal reflux disease without esophagitis; I25.2 Old myocardial infarction; Z79.82 Long term (current) use of aspirin; Z79.899 Other long term (current) drug therapy; Z88.5 Allergy status to narcotic agent; Z88.8 Allergy status to other drugs, medicaments and biological substances; Z95.5 Presence of coronary angioplasty implant and graft; Z90.49 Acquired absence of other specified parts of digestive tract; Z90.79 Acquired absence of other genital organ(s); Z98.890 Other specified postprocedural states; Z87.891 Personal history of nicotine dependence
CPT/HCPCS: 97116 ×2; 97161; 64999; 64448; 85025 ×3; 73560; 93971; 27447; G0378 ×3; C1713 ×2; C1776; C1751; J2250; J1100; J0690 ×3; J2405; J2795; J2704; J1171 ×3